=== PATIENT | female | born 1985 | race Caucasian/White ===

== ENCOUNTER 2021-10-22 22:41 | Inpatient (IN) | payer MEDICARE, MEDICAID, SELFPAY ==
--- NOTE | ~2021-10-22 | US_ITS ---
EXAMINATION: US ABDOMEN LIMITED CLINICAL INFORMATION: Elevated liver function tests; question gallstones.. COMPARISON: Abdominal ultrasound dated 10/23/2021; CT abdomen and pelvis dated 10/23/2021. Imaging is very limited due to difficulty of the patient complied with the technologist and extensive bowel gas. TECHNIQUE: Real-time imaging of the gallbladder and common bile duct. FINDINGS: GALLBLADDER: An ill-defined gallstone is suspected at the neck portion. There is no biliary sludge, polyp, wall thickening or pericholecystic fluid. COMMON BILE DUCT: Normal in caliber measuring 0.3 cm in diameter. FREE FLUID: None. US/US abdomen limited IMPRESSION: Significantly limited examination. A probable gallstone is seen towards the neck portion. The common bile duct is poorly visualized but appears to be normal in caliber.
--- NOTE | ~2021-10-22 | XR_ITS ---
EXAMINATION: XR CHEST CLINICAL INFORMATION: Fever and cough COMPARISON: None TECHNIQUE: Frontal view of the chest was obtained. FINDINGS: Lung volumes are low. There is mild asymmetric elevation of the right hemidiaphragm. No focal airspace consolidation. Atelectasis is suspected at the right lung base. Pulmonary vasculature appears normal. Cardiac and mediastinal contours are normal. No acute osseous findings. PEG tube is in place. Imaged bowel is gas-filled without definite distention on these images. Bones are gracile. No acute osseous findings. XR/XR chest 1V IMPRESSION: Low lung volumes with probable right basilar atelectasis.
--- NOTE | ~2021-10-22 | CT_ITS ---
EXAMINATION: CT CHEST WITHOUT CONTRAST CLINICAL INFORMATION: Fever. Pain. Cough. COMPARISON: CT abdomen and pelvis 10/23/2021. TECHNIQUE: Multidetector volumetric CT imaging of the chest was done. Axial MIP volume rendering provided. Sagittal and coronal reformatted images were obtained. This CT examination was performed using dose optimization techniques as appropriate, variously including the following: *Automated exposure control *Adjustment of mA and/or kV according to patient size (this includes techniques or standardized protocols for targeted exams where dose is matched to indication/reason for exam; i.e. 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 Convex leftward curvature of the thoracolumbar spine Lungs and pleura: A small dependent layering left pleural effusion is present. Mild bibasilar compressive atelectasis is noted. Right base peribronchial wall thickening and mild scattered airspace type opacities are noted. Minimal scattered airspace opacities are present in the left lung base. Mild peribronchial wall thickening in scattered airspace opacities are present dependently within the right middle pulmonary lobe. Partial atelectasis of the superior segment of the right lower pulmonary lobe is noted partial atelectasis of the right upper pulmonary lobe is present posteriorly. No pneumothoraces. Mediastinum: No lymphadenopathy. Normal heart size. Normal caliber and contour of the thoracic aorta. CHEST WALL: No axillary lymphadenopathy. Incidentally visualized abdominal structures: Partial visualization is made of a gastrostomy tube terminating within the gastric lumen. The previously noted retroperitoneal fat reticular opacities adjacent to the tail the pancreas are again visualized. Osseous structures: Prominent convex leftward scoliosis of the thoracic spine is present. CT/CT chest wo con IMPRESSION: *Peribronchial wall thickening and inflammatory changes with scattered adjacent airspace disease predominantly in the posterior dependent portions of the right lower lobe, right middle lobe and to lesser degree left lower lobe. These findings are suspicious for aspiration pneumonitis. *Partial atelectasis of the right upper pulmonary lobe and superior segment of the right lower lobe. *Small left pleural effusion. *Mild bibasilar dependent atelectasis. *Prominent convex leftward scoliosis of the thoracic spine. *Partially visualized inflammatory changes adjacent to the tail the pancreas as noted on the comparison CT of the abdomen and pelvis suspicious for possible pancreatitis. *Partially visualized percutaneous gastrostomy tube and gaseous distention of the stomach. Fleischner guidelines were followed.
--- NOTE | ~2021-10-22 | CT_ITS ---
EXAMINATION: CT ABDOMEN AND PELVIS WITHOUT CONTRAST CLINICAL INFORMATION: Abdominal pain and vomiting. COMPARISON: None TECHNIQUE: Multidetector volumetric imaging was performed from the superior aspect of the liver through the pubic symphysis. Sagittal and coronal reformatted images were obtained on the technologist's workstation. This CT examination was performed using dose optimization techniques as appropriate, variously including the following: *Automated exposure control *Adjustment of mA and/or kV according to patient size (this includes techniques or standardized protocols for targeted exams where dose is matched to indication/reason for exam; i.e. extremities or head) *Use of iterative reconstruction technique DLP: 668 mGy-cm FINDINGS: LUNG BASES: Visualized lung bases demonstrate partial visualization of a trace left pleural effusion and bibasilar atelectasis and scattered mild airspace opacities. LIVER, GALLBLADDER, AND BILIARY TREE: The liver is normal in size, shape, and attenuation. No focal hepatic lesion or biliary ductal dilatation is present. The gallbladder is unremarkable with no evidence of radiopaque gallstones, gallbladder wall thickening, or obvious pericholecystic inflammatory changes. PANCREAS: Reticulation of the retroperitoneal fat adjacent to the tail of the pancreas is present with mild reticulation of the left anterior pararenal space. No peripancreatic fluid collections identified. SPLEEN: Unremarkable. ADRENAL GLANDS: Unremarkable. KIDNEYS AND URETERS: The kidneys are normal in size, shape, and attenuation. No hydronephrosis, hydroureter, or calculi seen. No perinephric stranding. BLADDER: Unremarkable. GASTROINTESTINAL TRACT: Marked quantity of stool within the sigmoid colon. Stool at the rectosigmoid junction measures 6 cm in diameter. No adjacent pericolonic inflammatory changes. The appendix is normal in appearance (series 4 image [id number]). No small bowel dilatation or mural thickening noted. A percutaneous gastrostomy tube is present and moderate distention of the stomach is noted. ABDOMINAL WALL: No gross inflammatory changes adjacent to the percutaneous gastrostomy tube entry site. LYMPH NODES: Normal. VASCULAR: Unremarkable. PELVIC VISCERA: Unremarkable. OSSEOUS STRUCTURES: Marked heterotopic ossification is noted in association with the right hip. Rotatory levoscoliosis of the thoracolumbar spine is present. CT/CT abdomen pelvis wo con IMPRESSION: *Findings suspicious for acute pancreatitis. Inflammatory changes are present adjacent to the tail of the pancreas. No evidence of pancreatic hemorrhage. No discrete peripancreatic fluid collections. *Prominent quantity of stool within the sigmoid colon at the rectosigmoid junction which may correlate with constipation. No pericolonic inflammatory changes. *Within the incidentally visualized lung bases, partial visualization is made of bibasilar scattered airspace disease and a trace left pleural effusion. A bibasilar predominance of findings is suspicious for aspiration pneumonitis. *Percutaneous gastrostomy tube in place. Moderate distention of the stomach.
--- NOTE | ~2021-10-22 | US_ITS ---
EXAMINATION: US ABDOMEN LIMITED CLINICAL INFORMATION: Acute pancreatitis. COMPARISON: Previous CT of the abdomen and pelvis from earlier the same day TECHNIQUE: Real-time imaging of the right upper quadrant abdominal viscera. Exam is very limited due to bowel gas FINDINGS: PANCREAS: Not visualized LIVER: The left lobe of the liver is not well visualized. Right lobe of liver echotexture is normal. No focal liver lesion or biliary duct dilatation. GALLBLADDER: Not seen. COMMON BILE DUCT: Not seen. RIGHT KIDNEY: Normal. No hydronephrosis. No renal calculi or focal parenchymal lesions. The kidney measures 9.7 cm in maximum dimension. FREE FLUID: None. US/US abdomen limited IMPRESSION: Very limited exam. The pancreas, left lobe of liver, common bile duct and gallbladder are not well seen. The right kidney is normal appearing.
[2021-10-22 22:44] VITALS: BP 120/87; PULSE 123; RESP 18; TEMP 38; O2SAT 93; BMI 32.1
[2021-10-22 23:06] LABS: MANUAL DIFF FLAG NO
[2021-10-22 23:07] LABS: Basophils Percent Auto 0.2 % (0-2); Eosinophils Absolute Auto 0.1 X10*3/uL (0.0-0.4); Eosinophils Percent Auto 0.4 % (0-4); Hematocrit 42.3 % (37.0-47.0); Hemoglobin 13.3 g/dl (12.0-16.0); Imm Gran Abs Auto 0.05 X10*3/uL (0.00-0.03); Imm Gran Pct Auto 0.3 % (0.0-0.4); Lymphocytes Absolute Auto 1.2 X10*3/uL (1.2-4.9); Mean Corpuscular HGB Conc 31.4 g/dl (31.0-35.0); Mean Corpuscular Hemoglobin 27.3 pg (27.0-33.0); Mean Corpuscular Volume 86.9 fL (80.0-98.0); Mean Platelet Volume 9.8 fL (9.4-12.3); Monocytes Absolute Auto 0.8 X10*3/uL (0.1-1.2); Monocytes Percent Auto 4.6 % (2-11); Neutrophils Absolute Auto 14.5 x10*3/uL (2.0-8.3); Neutrophils Percent Auto 87.5 % (45-73); Platelet Count 435 X10*3/uL (160-400); Red Blood Count 4.87 X10*6/uL (4.20-5.50); Red Cell Distribution Width 14.1 % (11.0-16.0); White Blood Count 16.6 X10*3/uL (4.8-10.8)
[2021-10-22 23:32] LABS: Alanine Aminotransferase 277 U/L (0-31); Alkaline Phosphatase 526 U/L (39-117); Anion Gap 18 (12-20); Aspartate Amino Transferase 164 U/L (5-31); Bilirubin Direct 0.4 mg/dL (0.0-0.5); Bilirubin Total 0.8 mg/dL (0.0-1.0); Blood Urea Nitrogen 12 mg/dL (9-16); Calcium 9.7 mg/dL (8.4-10.2); Carbon Dioxide 27 mmol/L (22-29); Chloride 101 mmol/L (96-108); Creatinine Clr Calc Pharmacy 70.9; Estimated Glomerular Filt Rate > 60; Glucose Random 211 mg/dL (60-115); Lipase 58 U/L (8-78); Potassium 4.4 mmol/L (3.3-5.1); Sodium 142 mmol/L (135-145); Total Protein 7.8 g/dL (6.5-8.0)
[2021-10-23] VITALS (17 sets, daily range): BP systolic 98–201; BP diastolic 48–94; PULSE 73–132; RESP 17–32; TEMP 36.4–39.1; O2SAT 92–100
--- NOTE | 2021-10-23 | ECG_ITS ---
Test Reason : SEPSIS Blood Pressure : / mmHG Vent. Rate : 121 BPM Atrial Rate : 121 BPM P-R Int : 122 ms QRS Dur : 064 ms QT Int : 312 ms P-R-T Axes : 018 050 -06 degrees QTc Int : 443 ms Sinus tachycardia with Premature atrial complexes Anterior infarct , age undetermined Abnormal ECG No previous ECGs available Referred By: Deidre Coffey Electronically Signed By:ROSE NUNEZ MD
--- NOTE | 2021-10-23 00:24 | ED_ITS ---
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 As per mother patient been having vomiting since yesterday, subjective fever, no sick contacts. Patient get nutrition through her gastric feeding tube nothing per mouth as per mother. Related Data Allergies Allergy/AdvReac Type Severity Reaction Status Date / Time No Known Allergies Allergy Verified 10/22/21 22:44 Review of Systems Review of Systems: Yes Unobtainable due to mental condition [facility] Past Medical History Medical History (Updated 10/23/21 @ 01:50 by Aleyda Wade MD) Rett syndrome Social History Social History Advance Directives: No Advance Directives Information Provided: Yes Physical Exam Vital Signs: Vital Signs: Last Vital Signs Temp 102.4 F H 10/23/21 01:18 Pulse 127 H 10/23/21 01:18 Resp 24 H 10/23/21 01:18 BP 148/79 H 10/23/21 01:18 Pulse Ox 98 10/23/21 01:18 O2 Del Method 10/23/21 01:18 O2 Flow Rate 2 10/23/21 01:18 BMI result Body Mass Index 32.1 Vital signs have been reviewed as appeared to be correct. Blood pressure normal. Heart rate elevated. Respiration rate normal. Temperature elevated. Oxygen saturation normal. Appearance: Awake, bed ridden, Unable to communicate with examiner. Head: Normal external exam. Normocephalic. Atraumatic. Eyes: PERRLA. EOMI. Conjunctiva and sclera normal. Eyelids normal. ENT: TM's Normal. Pharynx normal. Uvula midline. Moist mucous membranes. No trismus noted. No drooling noted. No muffled voice noted. Neck: Normal inspection. Neck supple. FROM. No adenopathy. Thyroid Normal. No meningeal signs. No neck mass noted. CVS: Normal heart rate and rhythm. Heart sound normal. No murmurs noted. Pulses normal throughout. Respiratory: No respiratory distress. Painless inspiration. Breath sounds normal. No wheezes/rales/rhonchi noted. Chest nontender. No accessory muscle usage noted or decreased air movement noted. Abdomen: Soft and nontender. Bowel sounds normal in all 4 quadrants. No distention noted. No organomegaly noted. No visible injury noted. Back: No CVA tenderness. Full range of motion noted. Skin: Skin warm and dry. Normal skin color. Normal skin turgor. No rashes/lesions/lacerations noted. Extremities: 4 extremities contraction Course Course Course Narrative: 36 years old female with Rett syndrome presented with nausea and vomiting with fever patient meet criteria for SIRS but no definitive source, normal lactic acid, normal blood pressure. However patient received empirical Zosyn IV antibiotic and received 1,551.3 cc of normal saline to match 30 cc/kg. Patient is awaiting for CT of the chest and abdomen and pelvis. Case signed out to Dr. Kwan. MDM - Nausea/Vomiting/Diarrhea Lab Data Attestation: I reviewed the patient's lab results. Result diagrams: 10/22/21 23:01 10/22/21 23:01 Labs: Lab Results 10/22/21 10/22/21 10/23/21 Range/Units 23:01 23:01 00:34 WBC 16.6 H (4.8-10.8) X10*3/uL RBC 4.87 (4.20-5.50) X10*6/uL Hgb 13.3 (12.0-16.0) g/dl Hct 42.3 (37.0-47.0) % MCV 86.9 (80.0-98.0) fL MCH 27.3 (27.0-33.0) pg MCHC 31.4 (31.0-35.0) g/dl RDW 14.1 (11.0-16.0) % Plt Count 435 H (160-400) X10*3/uL MPV 9.8 (9.4-12.3) fL Immature Gran % (Auto) 0.3 (0.0-0.4) % Neut % (Auto) 87.5 H (45-73) % Lymph % (Auto) 7.0 L (20-40) % [place] % (Auto) 4.6 (2-11) % Eos % (Auto) 0.4 (0-4) % Baso % (Auto) 0.2 (0-2) % Lymph # (Auto) 1.2 (1.2-4.9) X10*3/uL [place] # (Auto) 0.8 (0.1-1.2) X10*3/uL Eos # (Auto) 0.1 (0.0-0.4) X10*3/uL Baso # (Auto) 0.0 (0.0-0.2) X10*3/uL Abs Immat Gran (auto) 0.05 H (0.00-0.03) X10*3/uL Absolute Neuts (auto) 14.5 H (2.0-8.3) x10*3/uL Absolute Nucleated RBC 0.000 (0.0-0.012) X10*3/uL Nucleated RBC % (auto) 0.0 (0.0-0.2) /100WBC Sodium 142 (135-145) mmol/L Potassium 4.4 (3.3-5.1) mmol/L Chloride 101 (96-108) mmol/L Carbon Dioxide 27 (22-29) mmol/L Anion Gap 18 (12-20) BUN 12 (9-16) mg/dL Creatinine 0.58 (0.5-1.4) mg/dL Estim Creat Clear Calc 70.9 Estimated GFR > 60 Random Glucose 211 H (60-115) mg/dL Lactic Acid 0.7 (0.5-2.0) mmol/L Calcium 9.7 (8.4-10.2) mg/dL Total Bilirubin 0.8 (0.0-1.0) mg/dL Direct Bilirubin 0.4 (0.0-0.5) mg/dL AST 164 H (5-31) U/L ALT 277 H (0-31) U/L Alkaline Phosphatase 526 H (39-117) U/L B-Natriuretic Peptide (<100) pg/mL Total Protein 7.8 (6.5-8.0) g/dL Albumin 4.0 (3.5-5.0) g/dL Lipase 58 (8-78) U/L Beta HCG, Quant < 2 mIU/mL Urine Color Urine Appearance Urine pH (5.0-8.0) Ur Specific [place] (1.005-1.025) Urine Protein (NEG-TRACE) MG/DL Urine Glucose (UA) (NEG) MG/DL Urine Ketones (NEG) MG/DL Urine Blood (NEG) Urine Nitrite (NEG) Ur Leukocyte Esterase (NEG) Urine RBC (0) /HPF Urine WBC (0-4) /HPF Ur Squamous Epith Cells /LPF Urine Bacteria /LPF Urine Mucus /LPF Influenza Type A (PCR) (Negative) Influenza Type B (PCR) (Negative) RSV RNA Qual (PCR) (Negative) SARS-CoV-2 RNA (RT-PCR) (Negative) 10/23/21 10/23/21 10/23/21 Range/Units 00:34 00:34 01:05 WBC (4.8-10.8) X10*3/uL RBC (4.20-5.50) X10*6/uL Hgb (12.0-16.0) g/dl Hct (37.0-47.0) % MCV (80.0-98.0) fL MCH (27.0-33.0) pg MCHC (31.0-35.0) g/dl RDW (11.0-16.0) % Plt Count (160-400) X10*3/uL MPV (9.4-12.3) fL Immature Gran % (Auto) (0.0-0.4) % Neut % (Auto) (45-73) % Lymph % (Auto) (20-40) % [place] % (Auto) (2-11) % Eos % (Auto) (0-4) % Baso % (Auto) (0-2) % Lymph # (Auto) (1.2-4.9) X10*3/uL [place] # (Auto) (0.1-1.2) X10*3/uL Eos # (Auto) (0.0-0.4) X10*3/uL Baso # (Auto) (0.0-0.2) X10*3/uL Abs Immat Gran (auto) (0.00-0.03) X10*3/uL Absolute Neuts (auto) (2.0-8.3) x10*3/uL Absolute Nucleated RBC (0.0-0.012) X10*3/uL Nucleated RBC % (auto) (0.0-0.2) /100WBC Sodium (135-145) mmol/L Potassium (3.3-5.1) mmol/L Chloride (96-108) mmol/L Carbon Dioxide (22-29) mmol/L Anion Gap (12-20) BUN (9-16) mg/dL Creatinine (0.5-1.4) mg/dL Estim Creat Clear Calc Estimated GFR Random Glucose (60-115) mg/dL Lactic Acid (0.5-2.0) mmol/L Calcium (8.4-10.2) mg/dL Total Bilirubin (0.0-1.0) mg/dL Direct Bilirubin (0.0-0.5) mg/dL AST (5-31) U/L ALT (0-31) U/L Alkaline Phosphatase (39-117) U/L B-Natriuretic Peptide 16 (<100) pg/mL Total Protein (6.5-8.0) g/dL Albumin (3.5-5.0) g/dL Lipase (8-78) U/L Beta HCG, Quant mIU/mL Urine Color DK YELLOW Urine Appearance HAZY Urine pH 8.0 (5.0-8.0) Ur Specific [place] 1.020 (1.005-1.025) Urine Protein 3+ H (NEG-TRACE) MG/DL Urine Glucose (UA) NEG (NEG) MG/DL Urine Ketones 15 (NEG) MG/DL Urine Blood TRACE (NEG) Urine Nitrite NEG (NEG) Ur Leukocyte Esterase NEG (NEG) Urine RBC 5-9 H (0) /HPF Urine WBC 0-2 (0-4) /HPF Ur Squamous Epith Cells 2+ /LPF Urine Bacteria 1+ /LPF Urine Mucus 4+ /LPF Influenza Type A (PCR) NEGATIVE (Negative) Influenza Type B (PCR) NEGATIVE (Negative) RSV RNA Qual (PCR) NEGATIVE (Negative) SARS-CoV-2 RNA (RT-PCR) NEGATIVE (Negative) Discharge Plan Discharge Clinical Impression: SIRS (systemic inflammatory response syndrome), Elevated LFTs, Pneumonia Patient Disposition: Admitted As Inpatient
--- NOTE | 2021-10-23 00:25 | PC.NURSE ---
Addendum entered by Brie Martinez 10/23/21 00:30: MEDICAL RECORDS REQUESTED FROM [facility] @0020. Original Note: Medical Records from [facility] @0020.
[2021-10-23] MEDS: Piperacillin Sodium/Tazobactam 3.375 GM in 0.9 % Sodium Chloride 50 ML IV ×4 (00:35→18:19)
[2021-10-23 00:52] LABS: HCG Quantitative < 2 mIU/mL
[2021-10-23 00:53] LABS: Lactic Acid 0.7 mmol/L (0.5-2.0)
[2021-10-23 01:02] LABS: B Type Natriuretic Peptide 16 pg/mL (<100)
--- NOTE | 2021-10-23 01:19 | PC.NURSE ---
Pt satting at 90% on RA. Pt placed on O2 via NC at 2 L/min to improve O2 sat to 97 %. Provider made aware.
[2021-10-23 01:22] LABS: Influenza A PCR NEGATIVE (Negative); Influenza B PCR NEGATIVE (Negative); Resp Syncy Virus RNA Qual PCR NEGATIVE (Negative); SARS COV2 PCR INHOUSE NEGATIVE (Negative)
[2021-10-23 01:23] LABS: Appearance Urine HAZY; Color Urine DK YELLOW; Glucose Urine UA NEG (NEG); Leukocyte Esterase Urine NEG (NEG); Nitrite Urine NEG (NEG); UACC Culture Trigger NO; Urine Blood TRACE (NEG); Urine Ketones 15 MG/DL (NEG); Urine Protein 3+ MG/DL (NEG-TRACE)
[2021-10-23] MEDS: 0.9 % Sodium Chloride 1,551.3 ML 1551.3 ML IV (01:25)
[2021-10-23 01:29] LABS: Squamous Epithelial Cell Urine 2+ /LPF; WBC Urine 0-2 /HPF (0-4)
[2021-10-23 01:30] LABS: Bacteria Urine 1+ /LPF; Mucus Urine 4+ /LPF
[2021-10-23] MEDS: Acetaminophen Supp 650 MG SUPP.RECT PR ×2 (02:14→06:51)
[2021-10-23] MEDS: cefTRIAXone sodium 1 GM in 0.9 % Sodium Chloride 50 ML IV (02:15)
--- NOTE | 2021-10-23 02:46 | PC.NURSE ---
While this RN was in the room administering antibiotics, pt started to vomit and cough up vomitus. Head of bed was elevated more and pt's mouth was suctioned. Pt did not cough or choke on vomitus after elevating the head of bed.
--- NOTE | 2021-10-23 06:30 | PM.IMHP ---
History of Present Illness Date of Service: 10/23/21 Chief Complaint: vomiting Interview was done with the help of interpreter and translator. this is a 48-year-old female with past medical history of breath syndrome who presents to the hospital after her mother Noticed her to have significant amount of vomiting. Mother reports the patient had nausea and vomiting throughout the day yesterday, she also developed a fever of 100.5, and she was not doing well therefore she brought her to the hospital. Patient is nonverbal at bedside, wheelchair-bound. Unable to get much history from the patient herself. Her mother is her full-time caregiver. Unable to obtain full review of system is patient is nonverbal at baseline as patient is nonverbal at bedside, mother reports that the only way she knows she is in pain is if she is groaning moaning, patient has been doing that for the past 2 days. mother reports that patient had bronchitis in May and was admitted to [facility] for over a month for management abnormal liver function. On arrival to the ED patient noted to have a temperature of a 102.4, heart rate of 127, respiratory rate of 24, satting 93% on room air Labs are significant for WBC count of 16.6, AST of 164, ALT of 277, alk-phos of 526, UA negative, chest CT shows pre bronchial wall thickening and inflammatory changes with scattered adjacent airspace disease predominantly in the posterior dependent portion of the right lower lobe, right middle lobe and to a lesser degree left lower lobe suggesting aspiration pneumonitis abdominal CT showed inflammatory changes adjacent to the tail of the pancreas suggesting of pancreatitis. Patient started on antibiotics, IV fluid will be admitted for further management Review of Systems Review of Systems: Yes all other systems are reviewed and are negative [facility] Medical History Rett syndrome Family History (Updated 10/23/21 @ 06:36 by Deidre Coffey MD) Other No family history of coronary artery disease Social History (Updated 10/23/21 @ 06:37 by Deidre Coffey MD) Alcohol intake: never Patient Tobacco Use Status: Never used Tobacco Use of substances other than those prescribed or required for medical reasons: No Advance Directives: No Advance Directives Information Provided: Yes Meds Allergies Allergy/AdvReac Type Severity Reaction Status Date / Time No Known Allergies Allergy Verified 06/23/22 22:44 Physical Exam Vital Signs and Narrative: Vital Signs: Last Vital Signs Temp 101.1 F H 10/23/21 04:31 Pulse 114 H 10/23/21 04:31 Resp 17 10/23/21 04:31 BP 136/80 10/23/21 04:31 Pulse Ox 99 10/23/21 04:31 O2 Del Method 10/23/21 04:31 O2 Flow Rate 2 10/23/21 03:44 BMI result Body Mass Index 32.1 Const: Other: patient nonverbal, she is not cooperating with exam unable to obtain full physical exam Eyes: General: appearance normal, both eyes and all related structures Chest: Other: crackles heard Resp: Effort & Inspection: normal respiratory effort Cardio: Other: tachycardic Rhythm: regular rhythm GI: Other: abdomen is distended Auscultation: normal bowel sounds Skin: General skin exam: no rashes or lesions noted Results Labs CBC and Chem 7: 10/22/21 23:01 10/22/21 23:01 Labs: Laboratory Results - last 24 hr 10/22/21 10/22/21 10/23/21 23:01 23:01 00:34 MCV 86.9 MCH 27.3 MCHC 31.4 RDW 14.1 Plt Count 435 H MPV 9.8 Immature Gran % (Auto) 0.3 Neut % (Auto) 87.5 H Lymph % (Auto) 7.0 L [place] % (Auto) 4.6 Eos % (Auto) 0.4 Baso % (Auto) 0.2 Lymph # (Auto) 1.2 [place] # (Auto) 0.8 Eos # (Auto) 0.1 Baso # (Auto) 0.0 Abs Immat Gran (auto) 0.05 H Absolute Neuts (auto) 14.5 H Absolute Nucleated RBC 0.000 Nucleated RBC % (auto) 0.0 Anion Gap 18 Estim Creat Clear Calc 70.9 Estimated GFR > 60 Random Glucose 211 H Lactic Acid 0.7 Calcium 9.7 Total Bilirubin 0.8 Direct Bilirubin 0.4 AST 164 H ALT 277 H Alkaline Phosphatase 526 H B-Natriuretic Peptide Total Protein 7.8 Albumin 4.0 Lipase 58 Beta HCG, Quant < 2 Urine Color Urine Appearance Urine pH Ur Specific [place] Urine Protein Urine Glucose (UA) Urine Ketones Urine Blood Urine Nitrite Ur Leukocyte Esterase Urine RBC Urine WBC Ur Squamous Epith Cells Urine Bacteria Urine Mucus Influenza Type A (PCR) Influenza Type B (PCR) RSV RNA Qual (PCR) SARS-CoV-2 RNA (RT-PCR) 10/23/21 10/23/21 10/23/21 00:34 00:34 01:05 MCV MCH MCHC RDW Plt Count MPV Immature Gran % (Auto) Neut % (Auto) Lymph % (Auto) [place] % (Auto) Eos % (Auto) Baso % (Auto) Lymph # (Auto) [place] # (Auto) Eos # (Auto) Baso # (Auto) Abs Immat Gran (auto) Absolute Neuts (auto) Absolute Nucleated RBC Nucleated RBC % (auto) Anion Gap Estim Creat Clear Calc Estimated GFR Random Glucose Lactic Acid Calcium Total Bilirubin Direct Bilirubin AST ALT Alkaline Phosphatase B-Natriuretic Peptide 16 Total Protein Albumin Lipase Beta HCG, Quant Urine Color DK YELLOW Urine Appearance HAZY Urine pH 8.0 Ur Specific [place] 1.020 Urine Protein 3+ H Urine Glucose (UA) NEG Urine Ketones 15 Urine Blood TRACE Urine Nitrite NEG Ur Leukocyte Esterase NEG Urine RBC 5-9 H Urine WBC 0-2 Ur Squamous Epith Cells 2+ Urine Bacteria 1+ Urine Mucus 4+ Influenza Type A (PCR) NEGATIVE Influenza Type B (PCR) NEGATIVE RSV RNA Qual (PCR) NEGATIVE SARS-CoV-2 RNA (RT-PCR) NEGATIVE Imaging Radiologist's Impressions: Impressions Chest X-Ray 10/23/21 00:54 IMPRESSION: Low lung volumes with probable right basilar atelectasis. Abdomen/Pelvis CT 10/23/21 00:55 IMPRESSION: *Findings suspicious for acute pancreatitis. Inflammatory changes are present adjacent to the tail of the pancreas. No evidence of pancreatic hemorrhage. No discrete peripancreatic fluid collections. *Prominent quantity of stool within the sigmoid colon at the rectosigmoid junction which may correlate with constipation. No pericolonic inflammatory changes. *Within the incidentally visualized lung bases, partial visualization is made of bibasilar scattered airspace disease and a trace left pleural effusion. A bibasilar predominance of findings is suspicious for aspiration pneumonitis. *Percutaneous gastrostomy tube in place. Moderate distention of the stomach. Chest CT 10/23/21 02:05 IMPRESSION: *Peribronchial wall thickening and inflammatory changes with scattered adjacent airspace disease predominantly in the posterior dependent portions of the right lower lobe, right middle lobe and to lesser degree left lower lobe. These findings are suspicious for aspiration pneumonitis. *Partial atelectasis of the right upper pulmonary lobe and superior segment of the right lower lobe. *Small left pleural effusion. *Mild bibasilar dependent atelectasis. *Prominent convex leftward scoliosis of the thoracic spine. *Partially visualized inflammatory changes adjacent to the tail the pancreas as noted on the comparison CT of the abdomen and pelvis suspicious for possible pancreatitis. *Partially visualized percutaneous gastrostomy tube and gaseous distention of the stomach. Fleischner guidelines were followed. Assessment and Plan (1) SIRS (systemic inflammatory response syndrome): Status: Acute (2) Pneumonia: Status: Acute (3) Acute pancreatitis: Status: Acute Plan 36-year-old female with past medical history of Rett syndrome presents to the hospital with vomiting found to have acute pancreatitis as well pneumonia # sepsis - likely source is pneumonia versus pancreatitis - patient with tachycardia, tachypnea, as well as fever leukocytosis - treated with IV antibiotics - IV fluids - follow cultures # pneumonia - the aspiration given the CT chest findings - treat with IV antibiotics - follow cultures - monitor respiratory status # acute pancreatitis - abdominal CT findings of acute pancreatitis - evidence of abdominal pain although patient is nonverbal and unable to communicate her pain - will treat with aggressive IV fluids, keep NPO - will obtain triglycerides, no evidence of obstructing gallbladder stones, will obtain ultrasound of the abdomen DVT prophylaxis: Lovenox patient's sepsis, need for IV antibiotics, patient will require a minimum 2 night hospital stay for further management Quality Stroke Does the patient have a stroke diagnosis?: No VTE Prior VTE?: No VTE Risk Level:: Medical - moderate - high VTE Device Contraindication: Treatment Not Indicated VTE Drug Contraindication: N/A - Med Ordered
[2021-10-23] MEDS: Enoxaparin Sodium 40 MG/0.4 ML SYRINGE SUBCUT (06:55)
[2021-10-23 07:44] LABS: HBS Num1 2.46 mIU/mL (0-7.99); HBc Num1 0.12 S/CO (0.00-0.79); HBsAGNum1 0.17 S/CO (0.00-0.99); Hepatitis A Antibody IgM 0.14 Index (0-0.79); Hepatitis B Core Antibody Nonreactive (Nonreactive); Hepatitis B Surface Antigen Negative (Negative); ~HepC Num1 0.22 S/CO (0.00-0.79); ~Hepatitis A Antibody IgM Nonreactive (Nonreactive); ~Hepatitis B Surface Antibody NONREACTIVE (Nonreactive); ~Hepatitis C Antibody Nonreactive (Nonreactive)
--- NOTE | 2021-10-23 07:50 | PC.NURSE ---
pt is alert, non-verbal. pt's mother is at bedside and is aware of plan of care. pt g-tube is patent with feeding infusing. pt changed into hosp garment and repositioned to left side. hob up, iv abt infusing slowly.
[2021-10-23 07:52] LABS: Triglycerides 63 mg/dL
[2021-10-23] MEDS: 0.9 % Sodium Chloride Flush 3 ML SYRINGE IVFLUSH ×2 (07:56→15:17)
--- NOTE | 2021-10-23 08:34 | PHA.MEDREC ---
Pharmacy Consult ? Medication Reconciliation Pharmacy has completed the medication reconciliation. List was done with prior insurance claims and the help of her mother. Patients mother reports discontinuing divalproex. All other medications are current.
[2021-10-23] MEDS: HYDROmorphone HCl 0.5 MG/0.5 ML SYRINGE IVPUSH (10:21)
[2021-10-23] MEDS: Lactated Ringers 1,000 ML 200 ML IVCONT ×2 (10:23→15:14)
--- NOTE | 2021-10-23 13:34 | P.EN_ITS ---
Event Note Date of Service: 10/23/21 Event Note: 36-year-old female with past medical history of Rett syndrome, patient nonverbal, bed ridden being taken care of at home by mom received feeding via G- tube was brought in due to symptoms of vomiting and fever On arrival to the ED patient noted to have a temperature of a? 102.4, heart rate of 127, respiratory rate of 24, satting 93% on room air Labs are significant for WBC count of 16.6, AST of 164, ALT of 277, alk-phos of 526, UA negative, chest CT shows? pre bronchial wall thickening and inflammatory changes with scattered adjacent airspace disease predominantly in the posterior dependent portion of the right lower lobe, right middle lobe and to a lesser degree left lower lobe suggesting aspiration pneumonitis abdominal CT showed inflammatory changes adjacent to the? tail of the pancreas suggesting of pancreatitis. assessment plan 36-year-old female with past medical history of Rett syndrome presents to the hospital with vomiting found to have acute pancreatitis as well pneumonia # sepsis likely due to pneumonia -? patient meet sepsis criteria due to tachycardia, tachypnea, fever and leukocytosis -? continue IV zosyn, follow blood cultures CT abdomen showed moderate distention of the stomach #? acute pancreatitis/ elevated LFTs - ? abdominal CT findings of acute pancreatitis, patient nonverbal difficult to assess pain, on examination abdomen soft patient not moaning with palpation cont. IV fluids, - ? abdominal ultrasound limited study, pancreas left lobe of liver common bile duct and caught bladder not well seen right kidney is normal triglyceride 63, lipase 58 hold Lamotrigine, follow LFTs, clinical # nausea vomiting question related to elevated LFTs pancreatitis related to infection will hold levocarnitine since it can cause nausea and vomiting treat infection, nutrition consult follow clinical course # Rett syndrome on baclofen, Lamotrigine, clonidine 2 mg at bedtime, levocarnitine and levetiracetam, on G-tube feedings obtain nutrition consult to assess formula and amount of feeding hold levocarnitine and Lamotrigine, # diabetes mellitus type 2 on Januvia follow blood sugars # hypothyroidism resume levothyroxine #?DVT prophylaxis:? Lovenox
[2021-10-23] MEDS: oxyCODONE HCl Immed Release 5 MG TABLET PO (14:08)
--- NOTE | 2021-10-23 14:23 | MHC.CLN ---
RE: CONSULT HT 4'2 WT 114# ENN: 1295KCALS, 52-62G PROTEIN (1-1.2G/KG), 1560CC FREE WATER LABS UNREMARKABLE & ALBUMIN 4.0 DIET RX: NPO PT WITH N/V X 1 DAY AND WITH ACUTE PANCREATITIS PT HAS GTUBE; WHEN TF TO RE-START RECOMMEND JEVITY 1.0 AT MAX GOAL RATE 50ML/HR WITH 240ML FREE WATER FLUSHES Q 8 HRS TO PROVIDE 1272KCALS (24KCALS/KG), 53G PROTEIN (1.0G/KG), 1722ML TOTAL WATER FROM FORMULA AND FLUSHES (33ML/KG) START FORMULA AT 20ML/HR AND INCREASE BY 10ML Q 4 HRS UNTIL MAX GOAL IS ACHIEVED MONITOR TOLERANCE, RESIDUALS AND LYTES
[2021-10-23] MEDS: levETIRAcetam Oral Soln 500 MG/5 ML 750 MG G-TUBE (15:00)
--- NOTE | 2021-10-23 17:07 | MHC.CM.PN ---
Addendum entered by Laxmi Farah 10/23/21 17:20: Vax/boosted/[employer]. 08/15/20, 09/05/20, 07/09/21. Original Note: IMM 10/23. Guardianship. Paperwork uploaded into [employer] and [facility] [employer]. Guardian/mother Kalyn Kruse and Jean Marie Santos/sister.Pt lives with mother Kalyn Kruse ([phone]). Pt has Rett Syndrome and is non-verbal, bedbound/WC. Has GT for feedings, a shower chair and nadine lift. 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 PCP Dr. Sima Arvizu in [place] ([phone]). D/C plan: return home with family. Family to transport. CM to follow for d/c needs.
[2021-10-23] MEDS: cloNIDine HCL 0.1 MG TABLET G-TUBE (18:19)
[2021-10-23] MEDS: Lactated Ringers 1,000 ML 100 ML IVCONT (22:10)
[2021-10-23 23:39] LABS: Glucose, Whole Blood 125 mg/dL (60-115)
[2021-10-24 00:19] VITALS: BP 138/89; PULSE 118; RESP 18; TEMP 37.1; O2SAT 94
[2021-10-24] MEDS: levETIRAcetam Oral Soln 500 MG/5 ML 750 MG G-TUBE ×2 (01:13→13:22)
[2021-10-24] MEDS: Piperacillin Sodium/Tazobactam 3.375 GM in 0.9 % Sodium Chloride 50 ML IV ×4 (01:17→16:57)
[2021-10-24] MEDS: HYDROmorphone HCl 0.5 MG/0.5 ML SYRINGE IVPUSH ×3 (01:59→17:44)
[2021-10-24 04:00] VITALS: BP 138/85; PULSE 117; RESP 18; TEMP 36.9; O2SAT 96
[2021-10-24 05:26] LABS: Glucose, Whole Blood 115 mg/dL (60-115)
[2021-10-24 05:40] LABS: MANUAL DIFF FLAG NO
[2021-10-24 05:47] LABS: Basophils Percent Auto 0.2 % (0-2); Eosinophils Absolute Auto 0.3 X10*3/uL (0.0-0.4); Eosinophils Percent Auto 1.7 % (0-4); Hematocrit 35.8 % (37.0-47.0); Hemoglobin 11.4 g/dl (12.0-16.0); Imm Gran Abs Auto 0.08 X10*3/uL (0.00-0.03); Imm Gran Pct Auto 0.5 % (0.0-0.4); Lymphocytes Absolute Auto 1.6 X10*3/uL (1.2-4.9); Lymphocytes Percent Auto 10.5 % (20-40); Mean Corpuscular HGB Conc 31.8 g/dl (31.0-35.0); Mean Corpuscular Hemoglobin 27.3 pg (27.0-33.0); Mean Corpuscular Volume 85.9 fL (80.0-98.0); Mean Platelet Volume 10.3 fL (9.4-12.3); Monocytes Absolute Auto 0.8 X10*3/uL (0.1-1.2); Monocytes Percent Auto 5.3 % (2-11); Neutrophils Absolute Auto 12.4 x10*3/uL (2.0-8.3); Neutrophils Percent Auto 81.8 % (45-73); Platelet Count 375 X10*3/uL (160-400); Red Blood Count 4.17 X10*6/uL (4.20-5.50); Red Cell Distribution Width 13.8 % (11.0-16.0); White Blood Count 15.1 X10*3/uL (4.8-10.8)
[2021-10-24] MEDS: Enoxaparin Sodium 40 MG/0.4 ML SYRINGE SUBCUT (06:03)
[2021-10-24 06:06] LABS: Alanine Aminotransferase 247 U/L (0-31); Albumin Level 3.2 g/dL (3.5-5.0); Alkaline Phosphatase 459 U/L (39-117); Anion Gap 15 (12-20); Aspartate Amino Transferase 123 U/L (5-31); Bilirubin Direct 0.3 mg/dL (0.0-0.5); Bilirubin Total 0.5 mg/dL (0.0-1.0); Blood Urea Nitrogen 6 mg/dL (9-16); Calcium 9.1 mg/dL (8.4-10.2); Carbon Dioxide 23 mmol/L (22-29); Chloride 104 mmol/L (96-108); Creatinine Clr Calc Pharmacy 95.7; Estimated Glomerular Filt Rate > 60; Glucose Random 122 mg/dL (60-115); Potassium 3.9 mmol/L (3.3-5.1); Sodium 138 mmol/L (135-145); Total Protein 6.2 g/dL (6.5-8.0)
[2021-10-24 06:28] LABS: Thyroid Stimulating Hormone 1.76 uIU/mL (0.32-4.0)
[2021-10-24 08:00] VITALS: BP 136/79; PULSE 117; RESP 16; TEMP 37.2; O2SAT 93
[2021-10-24 08:01] LABS: Glucose, Whole Blood 103 mg/dL (60-115)
[2021-10-24] MEDS: 0.9 % Sodium Chloride Flush 3 ML SYRINGE IVFLUSH ×2 (08:29→16:56)
[2021-10-24] MEDS: Lactated Ringers 1,000 ML 100 ML IVCONT ×2 (08:29→16:56)
[2021-10-24] MEDS: Levothyroxine Sodium 25 MCG TABLET G-TUBE (10:03)
[2021-10-24 12:00] VITALS: BP 137/100; PULSE 123; RESP 16; TEMP 37.1; O2SAT 94
[2021-10-24 12:17] LABS: Glucose, Whole Blood 97 mg/dL (60-115)
[2021-10-24] MEDS: ondansetron HCL 4 MG/2 ML VIAL IVPUSH (13:22)
--- NOTE | 2021-10-24 15:36 | HO.PM.IMPN ---
Subjective Subjective Date of Service: 10/25/21 Interval History: f/u elevated lfts, pancreatitis difficut to get history from patient Review of Systems Review of Systems: Yes Unobtainable due to mental status Physical Exam Vital Signs: Vital Signs: Last Vital Signs Temp 98.8 F 10/24/21 12:00 Pulse 123 H 10/24/21 12:00 Resp 16 10/24/21 12:00 BP 137/100 H 10/24/21 12:00 Pulse Ox 94 10/24/21 12:00 O2 Del Method 10/24/21 12:00 O2 Flow Rate 2 10/23/21 16:00 BMI result Body Mass Index 32.1 Const: Other: General: constantly moving, non-verbal Resp: CTA bilateral CVS: S1,S2,RRR,t achy GI: +BS, NT, no distention Skin: No rash Neuro: not able to assess Psych: at her baseline per mother Objective Data Active Medications Acetaminophen (Acetaminophen 325 Mg Tablet) 650 mg PO Q6H PRN PRN Reason: Pain, Mild (Pain Scale 1-3) Acetaminophen (Acetaminophen Supp 650 Mg Supp.Rect) 650 mg NH Q6H PRN PRN Reason: Pain, Mild (Pain Scale 1-3) Last Admin: 10/23/21 06:51 Dose: 650 mg Documented By: JANE Albuterol/Ipratropium (Albuterol/Iprat 2.5/0.5mg 3 Ml Ampul.Neb) 3 ml INHALE RQ4H PRN PRN Reason: Shortness of Breath/Wheezing Dextrose (Dextrose 50 % 25 Gm/50 Ml Syringe) 25 gm IVPUSH Q15M PRN; Protocol PRN Reason: per Hypoglycemia Standing Ord. Enoxaparin Sodium (Enoxaparin Sodium 40 Mg/0.4 Ml Syringe) 40 mg SUBCUT Q24H JAMES Last Admin: 10/24/21 06:03 Dose: 40 mg Documented By: BONIFACIO Glucose (Glucose Gel 15 Gm Gel..Gram.) 15 gm PO Q15M PRN; Protocol PRN Reason: per Hypoglycemia Standing Ord. Hydromorphone HCl (Hydromorphone Hcl 0.5 Mg/0.5 Ml Syringe) 0.5 mg IVPUSH Q4H PRN; Protocol PRN Reason: Pain, Severe (Pain Scale 7-10) Last Admin: 10/24/21 13:28 Dose: 0.5 mg Documented By: LUPIS Lactated Ringer's (Lr) 1,000 mls @ 100 mls/hr IVCONT .Q10H [facility] Last Admin: 10/24/21 08:29 Dose: 100 mls/hr Documented By: LUPIS Piperacillin Sod/Tazobactam (Sod 3.375 gm/ Sodium Chloride) 50 mls @ 100 mls/hr IV Q6H [facility] Last Infusion: 10/24/21 13:53 Dose: 0 mls/hr Documented By: LUPIS Insulin Human Lispro (Insulin Lispro 100 Unit/Ml 3 Ml Vial) 0 unit SUBCUT Q6H [facility]; Protocol Last Admin: 10/24/21 09:29 Dose: Not Given Documented By: LUPIS Non-Admin Reason: No Insulin Coverage Levetiracetam (Levetiracetam Oral Soln 500 Mg/5 Ml) 750 mg G-TUBE Q12H [facility] Last Admin: 10/24/21 13:22 Dose: 750 mg Documented By: LUPIS Levothyroxine Sodium (Levothyroxine Sodium 25 Mcg Tablet) 25 mcg G-TUBE DAILY [facility] Last Admin: 10/24/21 10:03 Dose: 25 mcg Documented By: LUPIS Ondansetron HCl (Ondansetron Hcl 4 Mg/2 Ml Vial) 4 mg IVPUSH Q8H PRN PRN Reason: Nausea and Vomiting Last Admin: 10/24/21 13:22 Dose: 4 mg Documented By: LUPIS Oxycodone HCl (Oxycodone Hcl Immed Release 5 Mg Tablet) 5 mg PO Q6H PRN PRN Reason: Pain, Severe (Pain Scale 7-10) Last Admin: 10/23/21 14:08 Dose: 5 mg Documented By: MARY BETH Sodium Chloride (0.9 % Sodium Chloride Flush 3 Ml Syringe) 3 ml IVFLUSH QSHIFT [facility] Last Admin: 10/24/21 08:29 Dose: 3 ml Documented By: LUPIS Labs CBC & Chem 7: 10/25/21 09:50 10/25/21 09:50 Labs: Laboratory Results - last 24 hr 10/23/21 10/24/21 10/24/21 23:30 04:53 04:53 MCV 85.9 MCH 27.3 MCHC 31.8 RDW 13.8 Plt Count 375 MPV 10.3 Immature Gran % (Auto) 0.5 H Neut % (Auto) 81.8 H Lymph % (Auto) 10.5 L [place] % (Auto) 5.3 Eos % (Auto) 1.7 Baso % (Auto) 0.2 Lymph # (Auto) 1.6 [place] # (Auto) 0.8 Eos # (Auto) 0.3 Baso # (Auto) 0.0 Abs Immat Gran (auto) 0.08 H Absolute Neuts (auto) 12.4 H Absolute Nucleated RBC 0.000 Nucleated RBC % (auto) 0.0 Anion Gap 15 Estim Creat Clear Calc 95.7 Estimated GFR > 60 POC Glucose 125 H Random Glucose 122 H Calcium 9.1 D Total Bilirubin 0.5 Direct Bilirubin 0.3 AST 123 H ALT 247 H Alkaline Phosphatase 459 H Total Protein 6.2 L D Albumin 3.2 L TSH 1.76 10/24/21 10/24/21 10/24/21 05:20 07:48 11:56 MCV MCH MCHC RDW Plt Count MPV Immature Gran % (Auto) Neut % (Auto) Lymph % (Auto) [place] % (Auto) Eos % (Auto) Baso % (Auto) Lymph # (Auto) [place] # (Auto) Eos # (Auto) Baso # (Auto) Abs Immat Gran (auto) Absolute Neuts (auto) Absolute Nucleated RBC Nucleated RBC % (auto) Anion Gap Estim Creat Clear Calc Estimated GFR POC Glucose 115 103 97 Random Glucose Calcium Total Bilirubin Direct Bilirubin AST ALT Alkaline Phosphatase Total Protein Albumin TSH Microbiology Microbiology Results: Microbiology 10/23/21 00:34 Blood Culture - Preliminary Blood - Venous No growth after 24 hours. 10/23/21 00:34 Blood Culture - Preliminary Blood - Venous No growth after 24 hours. 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 102.4, heart rate of 127, respiratory rate of 24, satting 93% on room air Labs are significant for WBC count of 16.6, AST of 164, ALT of 277, alk-phos of 526, UA negative, chest CT shows? pre bronchial wall thickening and inflammatory changes with scattered adjacent airspace disease predominantly in the posterior dependent portion of the right lower lobe, right middle lobe and to a lesser degree left lower lobe suggesting aspiration pneumonitis abdominal CT showed inflammatory changes adjacent to the? tail of the pancreas suggesting of pancreatitis. 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 sepsis likely? due to pneumonia, met sepsis criteria due to tachycardia, tachypnea, fever and leukocytosis remains same -? continue IV zosyn, cultures negative at 48 ?? CT abdomen showed moderate distention of the stomach #? acute pancreatitis/ elevated LFTs - ?CT findings of acute pancreatitis, patient nonverbal difficult to assess pain, on examination abdomen soft patient not moaning with palpation ? ? cont. IV fluids, - ? abdominal ultrasound limited study because she's not able to stay still, pancreas left lobe of liver common bile duct and caught bladder not well seen right kidney is normal ? ? triglyceride 63, lipase 58 ? ? hold Lamotrigine, follow LFTs are trending down GI consult #? nausea vomiting question related to elevated LFTs pancreatitis related to infection will hold levocarnitine since it can cause nausea and vomiting treat infection as above, nutrition consult follow clinical course # Rett? syndrome ?? on baclofen, Lamotrigine, clonidine 2 mg at bedtime, levocarnitine and levetiracetam, on G-tube feedings obtain nutrition consult to assess? formula and amount of feeding ? ? hold levocarnitine and Lamotrigine, restart tube feed tomorrow if better #? diabetes mellitus type 2 on Januvia follow blood sugars #? hypothyroidism resume levothyroxine #?DVT prophylaxis:? Lovenox Quality Stroke Does the patient have a stroke diagnosis?: No VTE Prior VTE?: No VTE Risk Level:: Medical - moderate - high VTE Device Contraindication: Treatment Not Indicated VTE Drug Contraindication: N/A - Med Ordered
[2021-10-24 16:23] VITALS: BP 125/95; PULSE 114; RESP 20; TEMP 37; O2SAT 100
[2021-10-24 16:39] LABS: Glucose, Whole Blood 85 mg/dL (60-115)
[2021-10-24 20:01] VITALS: BP 134/64; PULSE 115; RESP 20; TEMP 36.1; O2SAT 95
[2021-10-24 20:38] LABS: Glucose, Whole Blood 73 mg/dL (60-115)
[2021-10-24] MEDS: Dextrose 5 % and Lactated Ring 1,000 ML 50 ML IVCONT (20:58)
[2021-10-25] MEDS: Piperacillin Sodium/Tazobactam 3.375 GM in 0.9 % Sodium Chloride 50 ML IV ×4 (00:19→18:00)
[2021-10-25] MEDS: HYDROmorphone HCl 0.5 MG/0.5 ML SYRINGE IVPUSH ×3 (00:22→23:08)
[2021-10-25 01:24] VITALS: PULSE 133; RESP 22; TEMP 37.4; O2SAT 97
[2021-10-25] MEDS: levETIRAcetam Oral Soln 500 MG/5 ML 750 MG G-TUBE ×2 (03:01→14:04)
[2021-10-25 04:00] VITALS: BP 144/84; PULSE 117; RESP 18; TEMP 36.6; O2SAT 94
[2021-10-25] MEDS: Enoxaparin Sodium 40 MG/0.4 ML SYRINGE SUBCUT (06:02)
[2021-10-25 06:24] LABS: Glucose, Whole Blood 135 mg/dL (60-115)
[2021-10-25 07:20] VITALS: BP 154/92; PULSE 120; RESP 16; TEMP 37.2; O2SAT 92
[2021-10-25 07:49] LABS: Glucose, Whole Blood 117 mg/dL (60-115)
[2021-10-25] MEDS: Acetaminophen 325 MG TABLET 650 MG PO (09:08)
[2021-10-25] MEDS: 0.9 % Sodium Chloride Flush 3 ML SYRINGE IVFLUSH ×2 (09:08→18:00)
[2021-10-25] MEDS: Levothyroxine Sodium 25 MCG TABLET G-TUBE (09:09)
[2021-10-25 10:08] LABS: Hematocrit 35.1 % (37.0-47.0); Hemoglobin 11.5 g/dl (12.0-16.0); Mean Corpuscular HGB Conc 32.8 g/dl (31.0-35.0); Mean Corpuscular Hemoglobin 27.8 pg (27.0-33.0); Mean Corpuscular Volume 84.8 fL (80.0-98.0); Mean Platelet Volume 9.6 fL (9.4-12.3); Platelet Count 442 X10*3/uL (160-400); Red Blood Count 4.14 X10*6/uL (4.20-5.50); Red Cell Distribution Width 13.6 % (11.0-16.0); White Blood Count 15.3 X10*3/uL (4.8-10.8)
[2021-10-25 10:25] LABS: Alanine Aminotransferase 169 U/L (0-31); Albumin Level 3.3 g/dL (3.5-5.0); Alkaline Phosphatase 438 U/L (39-117); Anion Gap 15 (12-20); Aspartate Amino Transferase 47 U/L (5-31); Bilirubin Direct 0.2 mg/dL (0.0-0.5); Bilirubin Total 0.5 mg/dL (0.0-1.0); Blood Urea Nitrogen 6 mg/dL (9-16); Carbon Dioxide 21 mmol/L (22-29); Chloride 106 mmol/L (96-108); Creatinine Clr Calc Pharmacy 91.5; Estimated Glomerular Filt Rate > 60; Glucose Random 123 mg/dL (60-115); Potassium 3.3 mmol/L (3.3-5.1); Sodium 139 mmol/L (135-145); Total Protein 6.5 g/dL (6.5-8.0)
--- NOTE | 2021-10-25 10:52 | HO.PM.IMPN ---
Subjective Subjective Date of Service: 10/25/21 Interval History: f/u elevated lfts, pancreatitis vomitted this morning according to mother Review of Systems Review of Systems: Yes Unobtainable due to mental status Physical Exam Vital Signs: Vital Signs: Last Vital Signs Temp 98.9 F 10/25/21 07:20 Pulse 120 H 10/25/21 07:20 Resp 16 10/25/21 07:20 BP 154/92 H 10/25/21 07:20 Pulse Ox 92 10/25/21 07:20 O2 Del Method 10/25/21 07:20 O2 Flow Rate 2 10/23/21 16:00 BMI result Body Mass Index 32.1 Const: Other: General: constantly moving, non-verbal Resp: CTA bilateral CVS: S1,S2,RRR,t achy GI: +BS, NT, no distention Skin: No rash Neuro: not able to assess Psych: at her baseline per mother Objective Data Active Medications Acetaminophen (Acetaminophen 325 Mg Tablet) 650 mg PO Q6H PRN PRN Reason: Pain, Mild (Pain Scale 1-3) Last Admin: 10/25/21 09:08 Dose: 650 mg Documented By: LUPIS Acetaminophen (Acetaminophen Supp 650 Mg Supp.Rect) 650 mg MN Q6H PRN PRN Reason: Pain, Mild (Pain Scale 1-3) Last Admin: 10/23/21 06:51 Dose: 650 mg Documented By: JANE Albuterol/Ipratropium (Albuterol/Iprat 2.5/0.5mg 3 Ml Ampul.Neb) 3 ml INHALE RQ4H PRN PRN Reason: Shortness of Breath/Wheezing Dextrose (Dextrose 50 % 25 Gm/50 Ml Syringe) 25 gm IVPUSH Q15M PRN; Protocol PRN Reason: per Hypoglycemia Standing Ord. Enoxaparin Sodium (Enoxaparin Sodium 40 Mg/0.4 Ml Syringe) 40 mg SUBCUT Q24H COUNT INCLUDES THE [facility] Last Admin: 10/25/21 06:02 Dose: 40 mg Documented By: BONIFACIO Glucose (Glucose Gel 15 Gm Gel..Gram.) 15 gm PO Q15M PRN; Protocol PRN Reason: per Hypoglycemia Standing Ord. Hydromorphone HCl (Hydromorphone Hcl 0.5 Mg/0.5 Ml Syringe) 0.5 mg IVPUSH Q4H PRN; Protocol PRN Reason: Pain, Severe (Pain Scale 7-10) Last Admin: 10/25/21 09:09 Dose: 0.5 mg Documented By: LUPIS Piperacillin Sod/Tazobactam (Sod 3.375 gm/ Sodium Chloride) 50 mls @ 100 mls/hr IV Q6H COUNT INCLUDES THE [facility] Last Infusion: 10/25/21 06:40 Dose: 0 mls/hr Documented By: BONIFACIO Dextrose/Lactated Ringer's (D5lr) 1,000 mls @ 50 mls/hr IVCONT .Q20H COUNT INCLUDES THE [facility] Last Admin: 10/24/21 20:58 Dose: 50 mls/hr Documented By: BONIFACIO Insulin Human Lispro (Insulin Lispro 100 Unit/Ml 3 Ml Vial) 0 unit SUBCUT Q6H COUNT INCLUDES THE [facility]; Protocol Last Admin: 10/25/21 05:33 Dose: Not Given Documented By: BONIFACIO Non-Admin Reason: No Insulin Coverage Levetiracetam (Levetiracetam Oral Soln 500 Mg/5 Ml) 750 mg G-TUBE Q12H COUNT INCLUDES THE [facility] Last Admin: 10/25/21 03:01 Dose: 750 mg Documented By: BONIFACIO Levothyroxine Sodium (Levothyroxine Sodium 25 Mcg Tablet) 25 mcg G-TUBE DAILY COUNT INCLUDES THE [facility] Last Admin: 10/25/21 09:09 Dose: 25 mcg Documented By: LUPIS Ondansetron HCl (Ondansetron Hcl 4 Mg/2 Ml Vial) 4 mg IVPUSH Q8H PRN PRN Reason: Nausea and Vomiting Last Admin: 10/24/21 13:22 Dose: 4 mg Documented By: LUPIS Oxycodone HCl (Oxycodone Hcl Immed Release 5 Mg Tablet) 5 mg PO Q6H PRN PRN Reason: Pain, Severe (Pain Scale 7-10) Last Admin: 10/23/21 14:08 Dose: 5 mg Documented By: MARY BETH Sodium Chloride (0.9 % Sodium Chloride Flush 3 Ml Syringe) 3 ml IVFLUSH QSHIFT COUNT INCLUDES THE [facility] Last Admin: 10/25/21 09:08 Dose: 3 ml Documented By: LPUIS Labs CBC & Chem 7: 10/25/21 09:50 10/25/21 09:50 Labs: Laboratory Results - last 24 hr 10/24/21 10/24/21 10/24/21 11:56 16:31 20:07 MCV MCH MCHC RDW Plt Count MPV Absolute Nucleated RBC Nucleated RBC % (auto) Anion Gap Estim Creat Clear Calc Estimated GFR POC Glucose 97 85 73 Random Glucose Calcium Total Bilirubin Direct Bilirubin AST ALT Alkaline Phosphatase Total Protein Albumin 10/25/21 10/25/21 10/25/21 06:19 07:31 09:50 MCV 84.8 MCH 27.8 MCHC 32.8 RDW 13.6 Plt Count 442 H MPV 9.6 Absolute Nucleated RBC 0.000 Nucleated RBC % (auto) 0.0 Anion Gap Estim Creat Clear Calc Estimated GFR POC Glucose 135 H 117 H Random Glucose Calcium Total Bilirubin Direct Bilirubin AST ALT Alkaline Phosphatase Total Protein Albumin 10/25/21 09:50 MCV MCH MCHC RDW Plt Count MPV Absolute Nucleated RBC Nucleated RBC % (auto) Anion Gap 15 Estim Creat Clear Calc 91.5 Estimated GFR > 60 POC Glucose Random Glucose 123 H Calcium 9.0 Total Bilirubin 0.5 Direct Bilirubin 0.2 AST 47 H D ALT 169 H Alkaline Phosphatase 438 H Total Protein 6.5 Albumin 3.3 L Microbiology Microbiology Results: Microbiology 10/23/21 00:34 Blood Culture - Preliminary Blood - Venous No growth after 48 hours. 10/23/21 00:34 Blood Culture - Preliminary Blood - Venous No growth after 48 hours. 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 102.4, heart rate of 127, respiratory rate of 24, satting 93% on room air Labs are significant for WBC count of 16.6, AST of 164, ALT of 277, alk-phos of 526, UA negative, chest CT shows? pre bronchial wall thickening and inflammatory changes with scattered adjacent airspace disease predominantly in the posterior dependent portion of the right lower lobe, right middle lobe and to a lesser degree left lower lobe suggesting aspiration pneumonitis abdominal CT showed inflammatory changes adjacent to the? tail of the pancreas suggesting of pancreatitis. 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 sepsis likely? due to pneumonia, met sepsis criteria due to tachycardia, tachypnea, fever and leukocytosis remains same -? continue IV zosyn, cultures negative at 48 ?? CT abdomen showed moderate distention of the stomach #? acute pancreatitis/ elevated LFTs - ?CT findings of acute pancreatitis, patient nonverbal difficult to assess pain, on examination abdomen soft patient not moaning with palpation ? ? cont. IV fluids, - ? abdominal ultrasound limited study because she's not able to stay still, pancreas left lobe of liver common bile duct and caught bladder not well seen right kidney is normal ? ? triglyceride 63, lipase 58 ? ? hold Lamotrigine, follow LFTs are trending down GI consult #? nausea vomiting question related to elevated LFTs pancreatitis related to infection will hold levocarnitine since it can cause nausea and vomiting treat infection as above, nutrition consult follow clinical course #Persistent tachycardia--probably has underlying tachycardia d/t chronic fidgeting and now sepsis # Rett? syndrome ?? on baclofen, Lamotrigine, clonidine 2 mg at bedtime, levocarnitine and levetiracetam, on G-tube feedings obtain nutrition consult to assess? formula and amount of feeding ? ? hold levocarnitine and Lamotrigine, restart tube feed tomorrow if better #? diabetes mellitus type 2 on Januvia follow blood sugars #? hypothyroidism resume levothyroxine #?DVT prophylaxis:? Lovenox Quality Stroke Does the patient have a stroke diagnosis?: No VTE Prior VTE?: No VTE Risk Level:: Medical - moderate - high VTE Device Contraindication: Treatment Not Indicated VTE Drug Contraindication: N/A - Med Ordered
--- NOTE | 2021-10-25 11:13 | P.CNGI_ITS ---
History of Present Illness Data of Consult Service Date: 10/25/21 Requesting physician: [facility] Primary Care Provider: Unknown Physician HPI Reason for consult: pancreatitis, elevated LFTs 36-year-old female with past medical history of Rett's syndrome who presents to the hospital after her mother? Noticed her to have significant amount of vomiting.? Mother reports the patient had nausea and vomiting throughout the day yesterday, she also developed a fever of 100.5, and she was not doing well therefore she brought her to the hospital.? Patient is nonverbal at bedside, wheelchair-bound.? Unable to get much history from the patient herself.? Her mother is her full-time caregiver. ? Unable to obtain full review of system is patient is nonverbal at baseline ?as patient is nonverbal at bedside, mother reports that? the only way she knows she is in pain is if she is groaning moaning, patient has been doing that for the past 2 days.? ?mother reports that patient had bronchitis in May and was admitted to [facility] for over a month for management abnormal liver function. On arrival to the ED patient noted to have a temperature of a? 102.4, heart rate of 127, respiratory rate of 24, satting 93% on room air Labs are significant for WBC count of 16.6, AST of 164, ALT of 277, alk-phos of 526, UA negative, ?chest CT shows? pre bronchial wall thickening and inflammatory changes with scattered adjacent airspace disease predominantly in the posterior dependent portion of the right lower lobe, right middle lobe and to a lesser degree left lower lobe suggesting aspiration pneumonitis Patient started on antibiotics, IV fluid will be admitted for further management Hx obtained from patient;s Dad who was at her bedside. He reports pt was admitted to [facility] about a month ago with nausea and vomiting. Pt was transferred to [facility] at her Dad's request since he was not happy with her care. Pt had a PEG tube placed at [facility] and he was told that she had gallstones. (Records from [facility] have been requested) 10/23/[address] SCAN SHOWED: *Findings suspicious for acute pancreatitis. Inflammatory changes are present adjacent to the tail of the pancreas. No evidence of pancreatic hemorrhage. No discrete peripancreatic fluid collections. *Prominent quantity of stool within the sigmoid colon at the rectosigmoid junction which may correlate with constipation. No pericolonic inflammatory changes. *Within the incidentally visualized lung bases, partial visualization is made of bibasilar scattered airspace disease and a trace left pleural effusion. A bibasilar predominance of findings is suspicious for aspiration pneumonitis. *Percutaneous gastrostomy tube in place. Moderate distention of the stomach. ? 10/23/21 abd us showed: Very limited exam. The pancreas, left lobe of liver, common bile duct and gallbladder are not well seen. The right kidney is normal appearing. ? Review of Systems Review of Systems: Not obtainable since patient is nonverbal [facility] Past Medical History Medical History (Updated 10/30/21 @ 14:52 by Aleyda Wade MD) Encounter for gastrojejunal tube placement Family History Family History (Updated 10/23/21 @ 06:36 by Deidre Coffey MD) Other No family history of coronary artery disease Surgical History Surgical History (Updated 10/30/21 @ 08:19 by Escobar Wellington MD) S/P laparoscopic cholecystectomy (10/29/21) Social History Social History (Updated 10/23/21 @ 06:37 by Deidre Coffey MD) Household Members: Family Housing: Apartment Alcohol intake: never Patient Tobacco Use Status: Never used Tobacco service: No Current occupational status: disabled Meds Allergies Allergy/AdvReac Type Severity Reaction Status Date / Time No Known Allergies Allergy Verified 10/29/21 13:38 Active Medications: Current Medications Acetaminophen (Acetaminophen 325 Mg Tablet) 650 mg PO Q6H PRN PRN Reason: Pain, Mild (Pain Scale 1-3) Last Admin: 10/25/21 09:08 Dose: 650 mg Acetaminophen (Acetaminophen Supp 650 Mg Supp.Rect) 650 mg [place] Q6H PRN PRN Reason: Pain, Mild (Pain Scale 1-3) Last Admin: 10/23/21 06:51 Dose: 650 mg Albuterol/Ipratropium (Albuterol/Iprat 2.5/0.5mg 3 Ml Ampul.Neb) 3 ml INHALE RQ4H PRN PRN Reason: Shortness of Breath/Wheezing Dextrose (Dextrose 50 % 25 Gm/50 Ml Syringe) 25 gm IVPUSH Q15M PRN; Protocol PRN Reason: per Hypoglycemia Standing Ord. Enoxaparin Sodium (Enoxaparin Sodium 40 Mg/0.4 Ml Syringe) 40 mg SUBCUT Q24H [facility] Last Admin: 10/25/21 06:02 Dose: 40 mg Glucose (Glucose Gel 15 Gm Gel..Gram.) 15 gm PO Q15M PRN; Protocol PRN Reason: per Hypoglycemia Standing Ord. Hydromorphone HCl (Hydromorphone Hcl 0.5 Mg/0.5 Ml Syringe) 0.5 mg IVPUSH Q4H PRN; Protocol PRN Reason: Pain, Severe (Pain Scale 7-10) Last Admin: 10/25/21 09:09 Dose: 0.5 mg Piperacillin Sod/Tazobactam (Sod 3.375 gm/ Sodium Chloride) 50 mls @ 100 mls/hr IV Q6H [facility] Last Infusion: 10/25/21 06:40 Dose: Infused Dextrose/Lactated Ringer's (D5lr) 1,000 mls @ 50 mls/hr IVCONT .Q20H [facility] Last Admin: 10/24/21 20:58 Dose: 50 mls/hr Insulin Human Lispro (Insulin Lispro 100 Unit/Ml 3 Ml Vial) 0 unit SUBCUT Q6H JAMES; Protocol Last Admin: 10/25/21 05:33 Dose: Not Given Levetiracetam (Levetiracetam Oral Soln 500 Mg/5 Ml) 750 mg G-TUBE Q12H [facility] Last Admin: 10/25/21 03:01 Dose: 750 mg Levothyroxine Sodium (Levothyroxine Sodium 25 Mcg Tablet) 25 mcg G-TUBE DAILY [facility] Last Admin: 10/25/21 09:09 Dose: 25 mcg Ondansetron HCl (Ondansetron Hcl 4 Mg/2 Ml Vial) 4 mg IVPUSH Q8H PRN PRN Reason: Nausea and Vomiting Last Admin: 10/24/21 13:22 Dose: 4 mg Oxycodone HCl (Oxycodone Hcl Immed Release 5 Mg Tablet) 5 mg PO Q6H PRN PRN Reason: Pain, Severe (Pain Scale 7-10) Last Admin: 10/23/21 14:08 Dose: 5 mg Sodium Chloride (0.9 % Sodium Chloride Flush 3 Ml Syringe) 3 ml IVFLUSH QSHIFT [facility] Last Admin: 10/25/21 09:08 Dose: 3 ml Home Medications Medication Instructions Recorded Confirmed Last Taken Type baclofen 10 mg tablet 20 mg PO TID 10/23/21 10/23/21 Unknown History clonidine HCl 0.1 mg tablet 2 tab PO BEDTIME 10/23/21 10/23/21 Unknown History docusate sodium 50 mg/5 mL oral 5 ml PO BID 10/23/21 10/23/21 Unknown History liquid (Docu) lamotrigine 25 mg tablet 4 tab PO BID 10/23/21 10/23/21 Unknown History levetiracetam 100 mg/mL oral 7.5 ml G-tube Q12H 10/23/21 10/23/21 Unknown History solution levocarnitine (with sugar) 100 2.5 ml PO BID 10/23/21 10/23/21 Unknown History mg/mL oral solution levothyroxine 25 mcg tablet 1 tab G-tube DAILY 10/23/21 10/23/21 Unknown History miconazole nitrate 2 % topical 1 appl topical NEEDED itch 10/23/21 10/23/21 Unknown History powder (Anti-Fungal) nystatin 100,000 unit/gram topical 1 appl topical BID 10/23/21 10/23/21 Unknown History powder sitagliptin 100 mg tablet (Januvia) 1 tab PO DAILY 10/23/21 10/23/21 Unknown History trazodone 50 mg tablet 0.5 tab PO BEDTIME insomnia 10/23/21 10/23/21 Unknown History Physical Exam Vital Signs: Vital Signs: Last Vital Signs Temp 98.9 F 10/25/21 07:20 Pulse 120 H 10/25/21 07:20 Resp 16 10/25/21 07:20 BP 154/92 H 10/25/21 07:20 Pulse Ox 92 10/25/21 07:20 O2 Del Method 10/25/21 07:20 O2 Flow Rate 2 10/23/21 16:00 BMI result Body Mass Index 32.1 Const: General: no acute distress Nutritional Appearance: obese Orientation/consciousness: Other orientation findings (non verbal due to Rett's syndrome) Limitations: physical limitations (bed bound) and other limitations (non verbal) HEENT: Head: Yes normal to inspection Ears: other (pt is non verbal) Eyes: Sclerae: sclerae normal Pupils: Equal, round and reactive pupils present Neck: Neck: Yes normal visual inspection Chest: Chest palpation & inspection: normal inspection of the chest Resp: Effort & Inspection: normal respiratory effort Auscultation: clear to auscultation bilaterally Cardio: Palpation: normal PMI Rate: regular rate Rhythm: regular rhythm Heart sounds: S1 normal heart sound present, S2 normal heart sound present and no murmurs GI: Inspection: Yes G-tube present Palpation (GI): Soft to palpation, nontender (unable to elicit abdominal tenderness) and No hepatosplenomegaly present Auscultation: normal bowel sounds Rectal Exam - Female: deferred Skin: General skin exam: no rashes or lesions noted Neuro: General: gait normal and moves all extremities Cranial nerves: Yes Equal, round and reactive pupils present Psych: Mental Status: 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) Speech and movement: Other speech and movement exam findings present (Psych) (non verbal) Results Labs CBC & Chem 7: 10/31/21 05:52 10/31/21 05:52 Labs: Short CBC 10/25/21 Range/Units 09:50 WBC 15.3 H (4.8-10.8) X10*3/uL Hgb 11.5 L (12.0-16.0) g/dl Hct 35.1 L (37.0-47.0) % Plt Count 442 H (160-400) X10*3/uL BMP 10/25/21 09:50 Sodium 139 Potassium 3.3 Chloride 106 Carbon Dioxide 21 L BUN 6 L Creatinine 0.45 L Calcium 9.0 Liver Function 10/25/21 Range/Units 09:50 Total Bilirubin 0.5 (0.0-1.0) mg/dL Direct Bilirubin 0.2 (0.0-0.5) mg/dL AST 47 H D (5-31) U/L ALT 169 H (0-31) U/L Alkaline Phosphatase 438 H (39-117) U/L Albumin 3.3 L (3.5-5.0) g/dL Microbiology Microbiology Results: Microbiology 10/23/21 00:34 Blood - Venous Blood Culture - Preliminary No growth after 48 hours. 10/23/21 00:34 Blood - Venous Blood Culture - Preliminary No growth after 48 hours. Assessment and Plan (1) Acute pancreatitis: Status: Acute (2) Elevated LFTs: Status: Acute Plan 36 YF with Rett's syndrome admitted with fever, nausea and vomiting and diagnosed with aspiration pneumonitis Labs are significant for WBC count of 16.6, AST of 164, ALT of 277, alk-phos of 526. Hepatitis a B and C serologies were negative. Likely cause of pancreatitis with elevated LFTs is gallstone pancreatitis. Her LFTs are improving. Pt's Dad reports pt was admitted to [facility] about a month ago with nausea and vom iting. Pt was transferred to [facility] at her Dad's request since he was not happy with her care. Pt had a PEG tube placed at [facility] and he was told that she had gallstones. Records from [facility] were obtained and reviewed - Abdominal US showed gallstones. 10/23/[address] SCAN SHOWED: *Findings suspicious for acute pancreatitis. Inflammatory changes are present adjacent to the tail of the pancreas. No evidence of pancreatic hemorrhage. No discrete peripancreatic fluid collections. *Prominent quantity of stool within the sigmoid colon at the rectosigmoid junction which may correlate with constipation. No pericolonic inflammatory changes. *Within the incidentally visualized lung bases, partial visualization is made of bibasilar scattered airspace disease and a trace left pleural effusion. A bibasilar predominance of findings is suspicious for aspiration pneumonitis. *Percutaneous gastrostomy tube in place. Moderate distention of the stomach. ? 10/23/21 abd us showed: Very limited exam. The pancreas, left lobe of liver, common bile duct and gallbladder are not well seen. The right kidney is normal appearing. RECOMMENDATIONS: 1. Follow LFTs. 2. Repeat abd US (pt is not likely to stay still for an MRCP). If US confirms presence of gallstones, surgical evaluation for Lap Caro if family agrees. Procedures Date of Service Date of Service: 10/25/21
[2021-10-25 12:00] VITALS: BP 137/89; PULSE 117; RESP 16; TEMP 36.9; O2SAT 96
[2021-10-25 12:00] LABS: Glucose, Whole Blood 122 mg/dL (60-115)
[2021-10-25] MEDS: Dextrose 5 % and Lactated Ring 1,000 ML 50 ML IVCONT (15:39)
[2021-10-25 16:00] VITALS: BP 161/102; PULSE 116; RESP 16; TEMP 36.4; O2SAT 95
[2021-10-25 17:45] LABS: Glucose, Whole Blood 146 mg/dL (60-115)
[2021-10-25 19:18] VITALS: BP 169/12; PULSE 116; RESP 16; TEMP 35.8; O2SAT 93
[2021-10-25 20:44] LABS: Glucose, Whole Blood 150 mg/dL (60-115)
[2021-10-25] MEDS: ondansetron HCL 4 MG/2 ML VIAL IVPUSH (21:19)
[2021-10-26] VITALS (7 sets, daily range): BP systolic 106–145; BP diastolic 45–84; PULSE 95–120; RESP 16–26; TEMP 36.3–36.9; O2SAT 95–100; BMI 32.1
[2021-10-26] MEDS: Piperacillin Sodium/Tazobactam 3.375 GM in 0.9 % Sodium Chloride 50 ML IV ×5 (01:48→23:27)
[2021-10-26] MEDS: levETIRAcetam Oral Soln 500 MG/5 ML 750 MG G-TUBE ×2 (01:49→15:31)
[2021-10-26] MEDS: HYDROmorphone HCl 0.5 MG/0.5 ML SYRINGE IVPUSH (03:27)
[2021-10-26] MEDS: Enoxaparin Sodium 40 MG/0.4 ML SYRINGE SUBCUT (06:07)
--- NOTE | 2021-10-26 06:20 | PM.EVENT ---
Event Note Date of Service: 10/26/21 Event Note: Seizure: Around 06:20 patient had an episode of seizure. Per family at bedside when patient had a seizure she was advised back. Did not have any convulsions. Patient was given Ativan IV x1. Patient continued on her home Keppra and lamotrigine.
[2021-10-26 06:25] LABS: Glucose, Whole Blood 184 mg/dL (60-115)
[2021-10-26] MEDS: LORazepam 2 MG/ML VIAL 1 MG IVPUSH (06:25)
[2021-10-26 08:37] LABS: HBS Num1 1.59 mIU/mL (0-7.99); HBc Num1 0.06 S/CO (0.00-0.79); HBsAGNum1 0.22 S/CO (0.00-0.99); Hepatitis B Core Antibody Nonreactive (Nonreactive); Hepatitis B Surface Antigen Negative (Negative); ~HepC Num1 0.16 S/CO (0.00-0.79); ~Hepatitis B Surface Antibody NONREACTIVE (Nonreactive); ~Hepatitis C Antibody Nonreactive (Nonreactive)
[2021-10-26 09:07] LABS: Hematocrit 37.2 % (37.0-47.0); Hemoglobin 12.4 g/dl (12.0-16.0); Mean Corpuscular HGB Conc 33.3 g/dl (31.0-35.0); Mean Corpuscular Hemoglobin 28.4 pg (27.0-33.0); Mean Corpuscular Volume 85.1 fL (80.0-98.0); Mean Platelet Volume 10.3 fL (9.4-12.3); PLT CLUMP 1; Red Blood Count 4.37 X10*6/uL (4.20-5.50); Red Cell Distribution Width 13.4 % (11.0-16.0)
[2021-10-26 09:19] LABS: Platelet Count 324 X10*3/uL (160-400); White Blood Count 10.7 X10*3/uL (4.8-10.8)
[2021-10-26 09:29] LABS: Anion Gap 15 (12-20); Blood Urea Nitrogen 5 mg/dL (9-16); Calcium 8.8 mg/dL (8.4-10.2); Carbon Dioxide 20 mmol/L (22-29); Chloride 109 mmol/L (96-108); Creatinine Clr Calc Pharmacy 85.7; Estimated Glomerular Filt Rate > 60; Glucose Random 192 mg/dL (60-115); Sodium 141 mmol/L (135-145)
[2021-10-26] MEDS: Levothyroxine Sodium 25 MCG TABLET G-TUBE (10:02)
--- NOTE | 2021-10-26 11:19 | HO.PM.IMPN ---
Subjective Subjective Date of Service: 10/26/21 Interval History: f/u elevated lfts, pancreatitis interval history:had a seizure and vomitted this morning, but more restful this morning, Review of Systems Review of Systems: Yes Unobtainable due to mental status Physical Exam Vital Signs: Vital Signs: Last Vital Signs Temp 97.6 F 10/26/21 07:53 Pulse 107 H 10/26/21 07:53 Resp 18 10/26/21 07:53 BP 120/73 10/26/21 07:53 Pulse Ox 95 10/26/21 07:53 O2 Del Method 10/26/21 07:53 O2 Flow Rate 2 10/23/21 16:00 BMI result Body Mass Index 32.1 Const: Other: General: constantly moving, non-verbal Resp: CTA bilateral CVS: S1,S2,RRR,t achy GI: +BS, NT, no distention Skin: No rash Neuro: not able to assess Psych: at her baseline per mother Objective Data Active Medications Acetaminophen (Acetaminophen 325 Mg Tablet) 650 mg PO Q6H PRN PRN Reason: Pain, Mild (Pain Scale 1-3) Last Admin: 10/25/21 09:08 Dose: 650 mg Documented By: LUPIS Acetaminophen (Acetaminophen Supp 650 Mg Supp.Rect) 650 mg [place] Q6H PRN PRN Reason: Pain, Mild (Pain Scale 1-3) Last Admin: 10/23/21 06:51 Dose: 650 mg Documented By: JANE Albuterol/Ipratropium (Albuterol/Iprat 2.5/0.5mg 3 Ml Ampul.Neb) 3 ml INHALE RQ4H PRN PRN Reason: Shortness of Breath/Wheezing Dextrose (Dextrose 50 % 25 Gm/50 Ml Syringe) 25 gm IVPUSH Q15M PRN; Protocol PRN Reason: per Hypoglycemia Standing Ord. Enoxaparin Sodium (Enoxaparin Sodium 40 Mg/0.4 Ml Syringe) 40 mg SUBCUT Q24H JAMES Last Admin: 10/26/21 06:07 Dose: 40 mg Documented By: JANETH Glucose (Glucose Gel 15 Gm Gel..Gram.) 15 gm PO Q15M PRN; Protocol PRN Reason: per Hypoglycemia Standing Ord. Hydromorphone HCl (Hydromorphone Hcl 0.5 Mg/0.5 Ml Syringe) 0.5 mg IVPUSH Q4H PRN; Protocol PRN Reason: Pain, Severe (Pain Scale 7-10) Last Admin: 10/26/21 03:27 Dose: 0.5 mg Documented By: JANETH Piperacillin Sod/Tazobactam (Sod 3.375 gm/ Sodium Chloride) 50 mls @ 100 mls/hr IV Q6H JAMES Last Infusion: 10/26/21 06:44 Dose: 100 mls/hr Documented By: JANETH Dextrose/Lactated Ringer's (D5lr) 1,000 mls @ 50 mls/hr IVCONT .Q20H JAMES Last Admin: 10/25/21 15:39 Dose: 50 mls/hr Documented By: ARSENENOEFREN Insulin Human Lispro (Insulin Lispro 100 Unit/Ml 3 Ml Vial) 0 unit SUBCUT Q6H JAMES; Protocol Last Admin: 10/26/21 06:27 Dose: Not Given Documented By: JANETH Non-Admin Reason: NPO Levetiracetam (Levetiracetam Oral Soln 500 Mg/5 Ml) 750 mg G-TUBE Q12H JAMES Last Admin: 10/26/21 01:49 Dose: 750 mg Documented By: JANETH Levothyroxine Sodium (Levothyroxine Sodium 25 Mcg Tablet) 25 mcg G-TUBE DAILY [facility] Last Admin: 10/26/21 10:02 Dose: 25 mcg Documented By: MARITZA Lorazepam (Lorazepam 2 Mg/Ml Vial) 1 mg IVPUSH Q2H PRN PRN Reason: Seizures Last Admin: 10/26/21 06:25 Dose: 1 mg Documented By: JANETH Ondansetron HCl (Ondansetron Hcl 4 Mg/2 Ml Vial) 4 mg IVPUSH Q8H PRN PRN Reason: Nausea and Vomiting Last Admin: 10/25/21 21:19 Dose: 4 mg Documented By: RAFI Oxycodone HCl (Oxycodone Hcl Immed Release 5 Mg Tablet) 5 mg PO Q6H PRN PRN Reason: Pain, Severe (Pain Scale 7-10) Last Admin: 10/23/21 14:08 Dose: 5 mg Documented By: MARY BETH Sodium Chloride (0.9 % Sodium Chloride Flush 3 Ml Syringe) 3 ml IVFLUSH QSHIFT [facility] Last Admin: 10/26/21 10:07 Dose: Not Given Documented By: MARITZA Non-Admin Reason: IV Running Labs CBC & Chem 7: 10/26/21 08:40 10/26/21 08:40 Labs: Laboratory Results - last 24 hr 10/23/21 10/25/21 10/25/21 18:37 11:29 17:42 MCV MCH MCHC RDW Plt Count MPV Absolute Nucleated RBC Nucleated RBC % (auto) Anion Gap Estim Creat Clear Calc Estimated GFR POC Glucose 122 H 146 H Random Glucose Calcium Hep Bs Antigen Negative Hep Bs Antibody NONREACTIVE Hep B Core Total Ab Nonreactive Hepatitis C Ab (EIA) Nonreactive 10/25/21 10/26/21 10/26/21 20:40 06:19 08:40 MCV 85.1 MCH 28.4 MCHC 33.3 RDW 13.4 Plt Count 324 D MPV 10.3 Absolute Nucleated RBC 0.000 Nucleated RBC % (auto) 0.0 Anion Gap Estim Creat Clear Calc Estimated GFR POC Glucose 150 H 184 H Random Glucose Calcium Hep Bs Antigen Hep Bs Antibody Hep B Core Total Ab Hepatitis C Ab (EIA) 10/26/21 08:40 MCV MCH MCHC RDW Plt Count MPV Absolute Nucleated RBC Nucleated RBC % (auto) Anion Gap 15 Estim Creat Clear Calc 85.7 Estimated GFR > 60 POC Glucose Random Glucose 192 H Calcium 8.8 Hep Bs Antigen Hep Bs Antibody Hep B Core Total Ab Hepatitis C Ab (EIA) Assessment and Plan (1) Acute pancreatitis: Status: Acute (2) Elevated LFTs: Status: Acute Plan 36-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 sepsis likely? due to pneumonia, met sepsis criteria due to tachycardia, tachypnea, fever and leukocytosis remains same--clincally improving. WBC is now normlal -? continue IV zosyn, cultures negative at 48 ?? CT abdomen showed moderate distention of the stomach #? acute pancreatitis/ elevated LFTs - ?CT findings of acute pancreatitis, patient nonverbal difficult to assess pain, on examination abdomen soft patient not moaning with palpation ? ? cont. IV fluids, - ? abdominal ultrasound limited study because she's not able to stay still, pancreas left lobe of liver common bile duct and caught bladder not well seen right kidney is normal ? ? triglyceride 63, lipase 58 ? ? hold Lamotrigine, follow LFTs are trending down GI recommend MRCP but she cannot stay still, so will repeat US, Get surgery consult for likely gallstone pancreatitis #? nausea vomiting question related to elevated LFTs pancreatitis related to infection will hold levocarnitine since it can cause nausea and vomiting treat infection as above, nutrition consult follow clinical course #Persistent tachycardia--probably has underlying tachycardia d/t chronic fidgeting and now sepsis # Rett? syndrome ?? on baclofen, Lamotrigine, clonidine 2 mg at bedtime, levocarnitine and levetiracetam, on G-tube feedings obtain nutrition consult to assess? formula and amount of feeding ? ? hold levocarnitine and Lamotrigine, restart tube feed tomorrow if better # Seizure d/o--had seizure last night, restart all home seizure meds #? diabetes mellitus type 2 on Januvia follow blood sugars #? hypothyroidism resume levothyroxine #?DVT prophylaxis:? Lovenox Quality Stroke Does the patient have a stroke diagnosis?: No VTE Prior VTE?: No VTE Risk Level:: Medical - moderate - high VTE Device Contraindication: Treatment Not Indicated VTE Drug Contraindication: N/A - Med Ordered
[2021-10-26 11:39] LABS: Glucose, Whole Blood 180 mg/dL (60-115)
[2021-10-26] MEDS: Insulin Lispro 100 UNIT/ML 3 ML VIAL SUBCUT ×3 (12:09→23:28)
[2021-10-26] MEDS: KCl 20 mEq in 5 % Dextrose 20 MEQ/1,000 ML IV.SOLN 125 MEQ IVCONT ×2 (13:05→23:27)
[2021-10-26 16:36] LABS: Glucose, Whole Blood 189 mg/dL (60-115)
[2021-10-26 18:09] LABS: Alanine Aminotransferase 105 U/L (0-31); Albumin Level 3.1 g/dL (3.5-5.0); Alkaline Phosphatase 384 U/L (39-117); Aspartate Amino Transferase 30 U/L (5-31); Bilirubin Direct 0.2 mg/dL (0.0-0.5); Bilirubin Total 0.3 mg/dL (0.0-1.0); Total Protein 6.5 g/dL (6.5-8.0)
--- NOTE | 2021-10-26 18:18 | P.CONGS_ITS ---
History of Present Illness Consult details Consult date: 10/26/21 Requesting physician: Brian Albert Narrative: 36-year-old female patient admitted to the hospitalist service on 10/23/2021 found to have vomiting fever. Patient has are Rett syndrome and is non ambulatory and nonverbal. She recently underwent a gastrostomy tube placement at [facility]. The patient's mother is her full-time caregiver provides information regarding her history. In the emergency department she was found to be tachycardic with a fever. Laboratories revealed elevated WBC of 16.6 and elevated alkaline phosphatase level. CT of the chest revealed possible aspiration pneumonitis. CT of the abdomen revealed inflammatory changes at tail the pancreas. She has a known history of gallstones gallbladder. Surgical consultation was requested regarding possible cholecystectomy. Review of Systems Review of Systems: Yes Unobtainable due to mental condition Neurologic: Reports confusion Psychiatric: Psychiatric: Reports confusion [facility] Past Medical History Medical History Rett syndrome Family History Family History (Updated 10/23/21 @ 06:36 by Deidre Coffey MD) Other No family history of coronary artery disease Social History Social History (Updated 10/23/21 @ 06:37 by Deidre Coffey MD) Household Members: Family Housing: Apartment Alcohol intake: never Patient Tobacco Use Status: Never used Tobacco service: No Current occupational status: disabled Meds Allergies Allergy/AdvReac Type Severity Reaction Status Date / Time No Known Allergies Allergy Verified 10/22/21 22:44 Active Medications: Current Medications Acetaminophen (Acetaminophen 325 Mg Tablet) 650 mg PO Q6H PRN PRN Reason: Pain, Mild (Pain Scale 1-3) Last Admin: 10/25/21 09:08 Dose: 650 mg Acetaminophen (Acetaminophen Supp 650 Mg Supp.Rect) 650 mg [place] Q6H PRN PRN Reason: Pain, Mild (Pain Scale 1-3) Last Admin: 10/23/21 06:51 Dose: 650 mg Albuterol/Ipratropium (Albuterol/Iprat 2.5/0.5mg 3 Ml Ampul.Neb) 3 ml INHALE RQ4H PRN PRN Reason: Shortness of Breath/Wheezing Dextrose (Dextrose 50 % 25 Gm/50 Ml Syringe) 25 gm IVPUSH Q15M PRN; Protocol PRN Reason: per Hypoglycemia Standing Ord. Enoxaparin Sodium (Enoxaparin Sodium 40 Mg/0.4 Ml Syringe) 40 mg SUBCUT Q24H JAMES Last Admin: 10/26/21 06:07 Dose: 40 mg Glucose (Glucose Gel 15 Gm Gel..Gram.) 15 gm PO Q15M PRN; Protocol PRN Reason: per Hypoglycemia Standing Ord. Hydromorphone HCl (Hydromorphone Hcl 0.5 Mg/0.5 Ml Syringe) 0.5 mg IVPUSH Q4H PRN; Protocol PRN Reason: Pain, Severe (Pain Scale 7-10) Last Admin: 10/26/21 03:27 Dose: 0.5 mg Piperacillin Sod/Tazobactam (Sod 3.375 gm/ Sodium Chloride) 50 mls @ 100 mls/hr IV Q6H JAMES Last Infusion: 10/26/21 12:48 Dose: Infused Potassium Chloride/Dextrose () 20 meq in 1,000 mls @ 125 mls/hr IVCONT .Q8H JAMES Last Admin: 10/26/21 13:05 Dose: 125 mls/hr Insulin Human Lispro (Insulin Lispro 100 Unit/Ml 3 Ml Vial) 0 unit SUBCUT Q6H JAMES; Protocol Last Admin: 10/26/21 16:49 Dose: 2 unit Levetiracetam (Levetiracetam Oral Soln 500 Mg/5 Ml) 750 mg G-TUBE Q12H JAMES Last Admin: 10/26/21 15:31 Dose: 750 mg Levothyroxine Sodium (Levothyroxine Sodium 25 Mcg Tablet) 25 mcg G-TUBE DAILY JAMES Last Admin: 10/26/21 10:02 Dose: 25 mcg Lorazepam (Lorazepam 2 Mg/Ml Vial) 1 mg IVPUSH Q2H PRN PRN Reason: Seizures Last Admin: 10/26/21 06:25 Dose: 1 mg Ondansetron HCl (Ondansetron Hcl 4 Mg/2 Ml Vial) 4 mg IVPUSH Q8H PRN PRN Reason: Nausea and Vomiting Last Admin: 10/25/21 21:19 Dose: 4 mg Oxycodone HCl (Oxycodone Hcl Immed Release 5 Mg Tablet) 5 mg PO Q6H PRN PRN Reason: Pain, Severe (Pain Scale 7-10) Last Admin: 10/23/21 14:08 Dose: 5 mg Sodium Chloride (0.9 % Sodium Chloride Flush 3 Ml Syringe) [facility] Last Admin: 10/26/21 16:50 Dose: Not Given Home Medications Medication Instructions Recorded Confirmed Last Taken Type baclofen 10 mg tablet 20 mg PO TID 10/23/21 10/23/21 Unknown History clonidine HCl 0.1 mg tablet 2 tab PO BEDTIME 10/23/21 10/23/21 Unknown History docusate sodium 50 mg/5 mL oral 5 ml PO BID 10/23/21 10/23/21 Unknown History liquid (Docu) lamotrigine 25 mg tablet 4 tab PO BID 10/23/21 10/23/21 Unknown History levetiracetam 100 mg/mL oral 7.5 ml G-tube Q12H 10/23/21 10/23/21 Unknown History solution levocarnitine (with sugar) 100 2.5 ml PO BID 10/23/21 10/23/21 Unknown History mg/mL oral solution levothyroxine 25 mcg tablet 1 tab G-tube DAILY 10/23/21 10/23/21 Unknown History miconazole nitrate 2 % topical 1 appl topical NEEDED itch 10/23/21 10/23/21 Unknown History powder (Anti-Fungal) nystatin 100,000 unit/gram topical 1 appl topical BID 10/23/21 10/23/21 Unknown History powder sitagliptin 100 mg tablet (Januvia) 1 tab PO DAILY 10/23/21 10/23/21 Unknown History trazodone 50 mg tablet 0.5 tab PO BEDTIME insomnia 10/23/21 10/23/21 Unknown History Physical Exam Vital Signs: Vital Signs: Last Vital Signs Temp 98.5 F 10/26/21 15:45 Pulse 111 H 10/26/21 15:45 Resp 20 10/26/21 15:45 BP 145/84 H 10/26/21 15:45 Pulse Ox 99 10/26/21 15:45 O2 Del Method 10/26/21 15:45 O2 Flow Rate 2 10/23/21 16:00 BMI result Body Mass Index 32.1 Const: General: awake, anxious and confusion Orientation/consciousness: confusion Limitations: behavioral limitations, physical limitations and wheelchair Resp: Effort & Inspection: normal respiratory effort, no audible wheezes, no cough and no respiratory distress GI: Other: Difficult to assess due to underlying medical condition. Patient grimaces with palpation of the Abdomen. No rebound or guarding. G-tube in place Skin: Other: warm and dry, no rash Neuro: General: confusion Psych: Other: patient is nonverbal, incomprehensible sounds Results Labs Result diagrams: 10/26/21 08:40 10/26/21 08:40 Labs: Abnormal lab results 10/25/21 10/26/21 10/26/21 Range/Units 20:40 06:19 08:40 Potassium 3.0 L (3.3-5.1) mmol/L Chloride 109 H (96-108) mmol/L Carbon Dioxide 20 L (22-29) mmol/L BUN 5 L (9-16) mg/dL Creatinine 0.48 L (0.5-1.4) mg/dL POC Glucose 150 H 184 H (60-115) mg/dL Random Glucose 192 H (60-115) mg/dL ALT 105 H (0-31) U/L Alkaline Phosphatase 384 H (39-117) U/L Albumin 3.1 L (3.5-5.0) g/dL 10/26/21 10/26/21 Range/Units 11:34 15:48 Potassium (3.3-5.1) mmol/L Chloride (96-108) mmol/L Carbon Dioxide (22-29) mmol/L BUN (9-16) mg/dL Creatinine (0.5-1.4) mg/dL POC Glucose 180 H 189 H (60-115) mg/dL Random Glucose (60-115) mg/dL ALT (0-31) U/L Alkaline Phosphatase (39-117) U/L Albumin (3.5-5.0) g/dL Short CBC 10/26/21 Range/Units 08:40 WBC 10.7 (4.8-10.8) X10*3/uL Hgb 12.4 (12.0-16.0) g/dl Hct 37.2 (37.0-47.0) % Plt Count 324 D (160-400) X10*3/uL BMP 10/26/21 08:40 Sodium 141 Potassium 3.0 L Chloride 109 H Carbon Dioxide 20 L BUN 5 L Creatinine 0.48 L Calcium 8.8 Liver Function 10/26/21 Range/Units 08:40 Total Bilirubin 0.3 (0.0-1.0) mg/dL Direct Bilirubin 0.2 (0.0-0.5) mg/dL AST 30 (5-31) U/L ALT 105 H (0-31) U/L Alkaline Phosphatase 384 H (39-117) U/L Albumin 3.1 L (3.5-5.0) g/dL Urine 10/23/21 Range/Units 01:05 Urine Color DK YELLOW Urine Appearance HAZY Urine pH 8.0 (5.0-8.0) Ur Specific [place] 1.020 (1.005-1.025) Urine Protein 3+ H (NEG-TRACE) MG/DL Urine Glucose (UA) NEG (NEG) MG/DL All other labs normal. Assessment and Plan (1) Acute pancreatitis: Status: Acute Plan 36-year-old female patient multiple medical problems presenting with complaints of vomiting and fever. Patient found to have pancreatitis of unknown etiology. She apparently has a history of gallstones previously diagnosed however current imaging does not confirm this. Patient continues to have elevated liver function tests especially alkaline phosphatase suggestive of cholecystitis. On CT the gallbladder is small and appears contracted. Ultrasound does visualize the gallbladder. Agree with Dr. Carranza patient will not be a good candidate for MRCP. A repeat ultrasound would be helpful to confirm gallstones. Discussed the possibility of surgery with her mother this afternoon. She is agreeable to proceed with surgery , namely laparoscopic or possible cholecystectomy, if necessary. Procedures Date of Service Date of Service: 10/26/21
[2021-10-26 20:08] LABS: Glucose, Whole Blood 169 mg/dL (60-115)
[2021-10-26] MEDS: 0.9 % Sodium Chloride Flush 3 ML SYRINGE IVFLUSH (23:28)
[2021-10-27] VITALS: BP 139/87; PULSE 118; RESP 16; TEMP 36.6; O2SAT 93
--- NOTE | 2021-10-27 | ECG_ITS ---
Test Reason : ST INVERSIONS Blood Pressure : / mmHG Vent. Rate : 119 BPM Atrial Rate : 119 BPM P-R Int : 124 ms QRS Dur : 064 ms QT Int : 350 ms P-R-T Axes : 020 081 022 degrees QTc Int : [address] & T wave abnormality, consider anterior ischemia Abnormal ECG When compared with ECG of 23-OCT-2021 06:11, No significant changes seen Referred By: Marj Savage Electronically Signed By:ANJANA PETERSEN
[2021-10-27] MEDS: levETIRAcetam Oral Soln 500 MG/5 ML 750 MG G-TUBE ×2 (01:47→15:17)
[2021-10-27 04:00] VITALS: BP 133/70; PULSE 108; RESP 16; TEMP 36.8; O2SAT 94
[2021-10-27] MEDS: KCl 20 mEq in 5 % Dextrose 20 MEQ/1,000 ML IV.SOLN 125 MEQ IVCONT ×2 (05:49→16:29)
[2021-10-27] MEDS: Enoxaparin Sodium 40 MG/0.4 ML SYRINGE SUBCUT (05:49)
[2021-10-27] MEDS: Piperacillin Sodium/Tazobactam 3.375 GM in 0.9 % Sodium Chloride 50 ML IV ×3 (05:50→18:25)
[2021-10-27 07:54] VITALS: BP 110/88; PULSE 114; RESP 20; TEMP 36.7; O2SAT 94
[2021-10-27] MEDS: Levothyroxine Sodium 25 MCG TABLET G-TUBE (10:28)
[2021-10-27 11:27] LABS: Glucose, Whole Blood 215 mg/dL (60-115)
[2021-10-27 11:30] LABS: Anion Gap 19 (12-20); Blood Urea Nitrogen 4 mg/dL (9-16); Calcium 9.1 mg/dL (8.4-10.2); Carbon Dioxide 17 mmol/L (22-29); Chloride 104 mmol/L (96-108); Creatinine Clr Calc Pharmacy 79.1; Estimated Glomerular Filt Rate > 60; Glucose Random 231 mg/dL (60-115); Potassium 3.8 mmol/L (3.3-5.1); Sodium 136 mmol/L (135-145)
[2021-10-27] MEDS: Insulin Lispro 100 UNIT/ML 3 ML VIAL SUBCUT ×3 (11:57→21:13)
[2021-10-27 12:00] VITALS: BP 160/75; PULSE 106; RESP 20; TEMP 36.6; O2SAT 95
[2021-10-27] MEDS: Acetaminophen 325 MG TABLET 650 MG PO (12:41)
[2021-10-27] MEDS: oxyCODONE HCl Immed Release 5 MG TABLET PO (12:42)
--- NOTE | 2021-10-27 14:20 | HO.PM.IMPN ---
Subjective Subjective Date of Service: 10/28/21 Interval History: elevated lft's , pancreatitis, abnormal ekg Review of Systems nonverbal , family at bedside Physical Exam Vital Signs: Vital Signs: Last Vital Signs Temp 97.9 F 10/27/21 12:00 Pulse 106 H 10/27/21 12:00 Resp 20 10/27/21 12:00 BP 160/75 H 10/27/21 12:00 Pulse Ox 95 10/27/21 12:00 O2 Del Method 10/27/21 12:00 O2 Flow Rate 2 10/23/21 16:00 BMI result Body Mass Index 32.1 General: constantly moving, non-verbal( as per mother at her baseline) Resp:? CTA bilateral CVS: S1,S2,RRR,tachy GI: +BS, NT, no distention Skin: No rash Neuro:? not able to assess Psych: at her baseline per mother ? Objective Data Active Medications Acetaminophen (Acetaminophen 325 Mg Tablet) 650 mg PO Q6H PRN PRN Reason: Pain, Mild (Pain Scale 1-3) Last Admin: 10/27/21 12:41 Dose: 650 mg Documented By: EDIN Acetaminophen (Acetaminophen Supp 650 Mg Supp.Rect) 650 mg [place] Q6H PRN PRN Reason: Pain, Mild (Pain Scale 1-3) Last Admin: 10/23/21 06:51 Dose: 650 mg Documented By: JANE Albuterol/Ipratropium (Albuterol/Iprat 2.5/0.5mg 3 Ml Ampul.Neb) 3 ml INHALE RQ4H PRN PRN Reason: Shortness of Breath/Wheezing Dextrose (Dextrose 50 % 25 Gm/50 Ml Syringe) 25 gm IVPUSH Q15M PRN; Protocol PRN Reason: per Hypoglycemia Standing Ord. Enoxaparin Sodium (Enoxaparin Sodium 40 Mg/0.4 Ml Syringe) 40 mg SUBCUT Q24H JAMES Last Admin: 10/27/21 05:49 Dose: 40 mg Documented By: AMISH Glucose (Glucose Gel 15 Gm Gel..Gram.) 15 gm PO Q15M PRN; Protocol PRN Reason: per Hypoglycemia Standing Ord. Hydromorphone HCl (Hydromorphone Hcl 0.5 Mg/0.5 Ml Syringe) 0.5 mg IVPUSH Q4H PRN; Protocol PRN Reason: Pain, Severe (Pain Scale 7-10) Last Admin: 10/26/21 03:27 Dose: 0.5 mg Documented By: JANETH Piperacillin Sod/Tazobactam (Sod 3.375 gm/ Sodium Chloride) 50 mls @ 100 mls/hr IV Q6H [facility] Last Infusion: 10/27/21 12:32 Dose: 0 mls/hr Documented By: EDIN Potassium Chloride/Dextrose () 20 meq in 1,000 mls @ 125 mls/hr IVCONT .Q8H [facility] Last Admin: 10/27/21 05:49 Dose: 125 mls/hr Documented By: AMISH Insulin Human Lispro (Insulin Lispro 100 Unit/Ml 3 Ml Vial) 0 unit SUBCUT Q6H [facility]; Protocol Last Admin: 10/27/21 11:57 Dose: 4 unit Documented By: EDIN Lamotrigine (Lamotrigine 100 Mg Tablet) 100 mg PO BID [facility] Levetiracetam (Levetiracetam Oral Soln 500 Mg/5 Ml) 750 mg G-TUBE Q12H [facility] Last Admin: 10/27/21 01:47 Dose: 750 mg Documented By: AMISH Levothyroxine Sodium (Levothyroxine Sodium 25 Mcg Tablet) 25 mcg G-TUBE DAILY [facility] Last Admin: 10/27/21 10:28 Dose: 25 mcg Documented By: EDIN Lorazepam (Lorazepam 2 Mg/Ml Vial) 1 mg IVPUSH Q2H PRN PRN Reason: Seizures Last Admin: 10/26/21 06:25 Dose: 1 mg Documented By: JANETH Ondansetron HCl (Ondansetron Hcl 4 Mg/2 Ml Vial) 4 mg IVPUSH Q8H PRN PRN Reason: Nausea and Vomiting Last Admin: 10/25/21 21:19 Dose: 4 mg Documented By: RAFI Oxycodone HCl (Oxycodone Hcl Immed Release 5 Mg Tablet) 5 mg PO Q6H PRN PRN Reason: Pain, Severe (Pain Scale 7-10) Last Admin: 10/27/21 12:42 Dose: 5 mg Documented By: EDIN Sodium Chloride (0.9 % Sodium Chloride Flush 3 Ml Syringe) 3 ml IVFLUSH QSHIFT [facility] Last Admin: 10/27/21 10:28 Dose: Not Given Documented By: EDIN Non-Admin Reason: IV Running Labs CBC & Chem 7: 10/26/21 08:40 10/28/21 10:14 Labs: Laboratory Results - last 24 hr 10/26/21 10/26/21 10/26/21 08:40 15:48 20:03 Anion Gap Estim Creat Clear Calc Estimated GFR POC Glucose 189 H 169 H Random Glucose Calcium Total Bilirubin 0.3 Direct Bilirubin 0.2 AST 30 ALT 105 H Alkaline Phosphatase 384 H Total Protein 6.5 Albumin 3.1 L 10/27/21 10/27/21 09:50 11:21 Anion Gap 19 Estim Creat Clear Calc 79.1 Estimated GFR > 60 POC Glucose 215 H Random Glucose 231 H Calcium 9.1 Total Bilirubin Direct Bilirubin AST ALT Alkaline Phosphatase Total Protein Albumin Assessment and Plan (1) Rett syndrome: Status: Acute (2) Abnormal EKG: Status: Acute (3) Acute pancreatitis: Status: Acute Plan 36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 due to pneumonia, met sepsis criteria due to tachycardia, tachypnea, fever and leukocytosis remains same--clincally improving. WBC is now normlal -? continue IV zosyn, cultures negative at 48 ?? CT abdomen showed moderate distention of the stomach ? acute pancreatitis/ elevated LFTs - ?CT findings of acute pancreatitis, patient nonverbal difficult to assess pain, on examination abdomen soft patient not moaning with palpation ? ? cont. IV fluids, - ? abdominal ultrasound limited study because she's not able to stay still, pancreas left lobe of liver common bile duct and caught bladder not well seen right kidney is normal ? ? triglyceride 63, lipase 58 ? ? hold Lamotrigine, follow LFTs are trending down GI recommend MRCP but she cannot stay still, so will repeat US, Get surgery consult for likely gallstone pancreatitis ? nausea vomiting question related to elevated LFTs pancreatitis related to infection will hold levocarnitine since it can cause nausea and vomiting treat infection as above, nutrition consult follow clinical course Persistent tachycardia--probably has underlying tachycardia d/t chronic fidgeting and now sepsis Rett? syndrome ?? on baclofen, Lamotrigine, clonidine 2 mg at bedtime, levocarnitine and levetiracetam, on G-tube feedings obtain nutrition consult to assess? formula and amount of feeding ? ? hold levocarnitine and Lamotrigine, restart tube feed tomorrow if better Seizure d/o--had seizure last night, restart all? home seizure meds ? diabetes mellitus type 2 on Januvia follow blood sugars ? hypothyroidism resume levothyroxine. abnormal ekg on admission-no other ekg available , patient is nonverbal echo added will [facility] to get [facility] -any previous ekg d/w with pcp Dr Santacruz -ekg changes since and trops neg they will send record by tomorrow. may need cardio eval. ?DVT prophylaxis:? Lovenox Quality Stroke Does the patient have a stroke diagnosis?: No VTE Prior VTE?: No VTE Risk Level:: Medical - moderate - high VTE Device Contraindication: Treatment Not Indicated VTE Drug Contraindication: N/A - Med Ordered
[2021-10-27 15:57] VITALS: BP 130/69; PULSE 106; RESP 17; TEMP 37.2; O2SAT 96
--- NOTE | 2021-10-27 16:00 | CA_ITS ---
Transthoracic Echocardiogram Patient (Last, First, Middle): Alejandro Santos, Gender: Female Date of : 1985 Age: 36 Procedure Date: 10/27/2021 Procedure Type: Transthoracic Echocardiogram Location: S3E Height: 127. cm Weight: 51.71 kg BSA: 1.29 m2 Heart Rate: bpm BP: 160 / 75 mmHg Car Detailer: CP/TO Referring MD: Marj Savage MD Symptoms: T wave inversion Study Quality: Technically Difficult Conclusions: - The left ventricular systolic function is normal. The visually estimated ejection fraction is between 55-60%. - No obvious valvular pathology seen on this study. Findings Left Ventricle Normal left ventricular cavity size. There is normal left ventricular wall thickness. The left ventricular systolic function is normal. The visually estimated ejection fraction is between 55-60%. Regional wall motion abnormalities can not be excluded due to suboptimal endocardial definition. Diastolic function is normal for age. Right Ventricle Normal right ventricular cavity size and systolic function. Atria Both atria are normal in size. Aortic Valve The aortic valve structure and function is likely normal. There is no aortic valve stenosis. There is no aortic valve regurgitation. Mitral Valve There is mild anterior and posterior mitral leaflet thickening. There is trace mitral valve regurgitation. There is no mitral valve stenosis. Pulmonic Valve The pulmonic valve is likely normal. Tricuspid Valve There is trace tricuspid valve regurgitation. There is no evidence of pulmonary hypertension. Great Vessels The aortic annulus, sinuses of valsalva, and asc aorta are normal in size. Venous The inferior vena cava was not well visualized. Pericardium/Pleural There is no evidence of pericardial effusion. Prior Study Comparison No prior study available for comparison. Recommendations, Care & Conclusions No obvious valvular pathology seen on this study. Measurements 2D Linear Measurements IVSd: 0.83 0.6-0.9/0.6-1.0 cm LVIDd: 3.59 3.9-5.3/4.2-5.9 cm LVIDd Index: 2.78 2.4-3.2/2.2-3.1 cm/m2 LVIDs: 2.42 2.0-3.6 cm LVPWd: 0.75 0.7-1.1 cm LA Diam: 2.90 2.7-3.8/3.0-4.0 cm LAIDs Index: 2.25 1.5-2.3 cm/m2 LV Mass: 96.10 67-162/88-224 g LV Mass Index: 74.49 43-95/49-115 g/m2 LVOT Diam: 1.50 3.0+(-)1.3 cm 2D Systolic Function EF 4C: 59.80 >55% Mitral Valve MV Pk E: 0.93 MV PK A: 0.89 MV Decel Time: 125.00 E/A: 1.00 E'Lateral: 11.00 E'Medial: 7.83 E/E' Med: 11.90 E/E' Lat: 8.50 PHT: 37.00 MVA PHT: 5.95 Decel Childress: 7.44 Aortic Valve AoV Pk Blair: 1.69 AoV Mn Blair: 1.23 AoV VTI: 0.33 AoV Pk Grad: 11.00 Aov Mn Grad: 7.00 INA Cont.VTI: 1.07 LVOT LVOT Pk Blair: 1.22 LVOT Mn Blair: 0.78 LVOT VTI: 0.20 LVOT Pk Grad: 6.00 LVOT Mn Grad: 3.00 LVOT Diam: 1.50 LVOT Area: 1.77 Diastolic Function MV Pk E: 0.93 MV Pk A: 0.89 E/A: 1.00 E'Medial: 7.83 E/E' Med: 11.90 E' Laterial: 11.00 E/E' Lat: 8.50 Right Ventricle TAPSE (mm): 19.00 TVS' Blair: 19.60 Great Vessels Aorta Sinus of Valsalva: 2.24 2.0-3.[address] Ridge: 1.97 1.7-3.4 cm Ao Asc: 2.40 2.1-3.4 cm Updated in Other Vendor System with Status of Final Jaime Perdomo MD electronically signed on 10/28/2021 12:08:58 PM with status of Final
[2021-10-27 17:39] LABS: Glucose, Whole Blood 180 mg/dL (60-115)
[2021-10-27] MEDS: HYDROmorphone HCl 0.5 MG/0.5 ML SYRINGE IVPUSH (18:25)
[2021-10-27 20:00] VITALS: BP 121/58; PULSE 84; RESP 18; TEMP 36.9; O2SAT 96
[2021-10-27 20:35] LABS: Glucose, Whole Blood 160 mg/dL (60-115)
[2021-10-27] MEDS: lamoTRIgine 100 MG TABLET G-TUBE (21:13)
[2021-10-28] VITALS (7 sets, daily range): BP systolic 101–135; BP diastolic 57–92; PULSE 85–107; RESP 16–18; TEMP 36–36.8; O2SAT 94–100
[2021-10-28 00:15] LABS: Glucose, Whole Blood 180 mg/dL (60-115)
[2021-10-28] MEDS: levETIRAcetam Oral Soln 500 MG/5 ML 750 MG G-TUBE ×2 (00:24→14:04)
[2021-10-28] MEDS: Piperacillin Sodium/Tazobactam 3.375 GM in 0.9 % Sodium Chloride 50 ML IV ×5 (00:24→23:53)
[2021-10-28] MEDS: KCl 20 mEq in 5 % Dextrose 20 MEQ/1,000 ML IV.SOLN 125 MEQ IVCONT ×2 (00:40→10:25)
[2021-10-28] MEDS: HYDROmorphone HCl 0.5 MG/0.5 ML SYRINGE IVPUSH ×3 (04:00→18:20)
[2021-10-28 05:51] LABS: Glucose, Whole Blood 244 mg/dL (60-115)
[2021-10-28] MEDS: Insulin Lispro 100 UNIT/ML 3 ML VIAL SUBCUT ×3 (06:15→18:11)
[2021-10-28] MEDS: Enoxaparin Sodium 40 MG/0.4 ML SYRINGE SUBCUT (06:17)
[2021-10-28 07:52] LABS: Glucose, Whole Blood 230 mg/dL (60-115)
[2021-10-28 08:16] LABS: ~Hepatitis A Antibody IgM Nonreactive (Nonreactive)
[2021-10-28] MEDS: lamoTRIgine 100 MG TABLET G-TUBE ×2 (10:27→21:09)
[2021-10-28] MEDS: Levothyroxine Sodium 25 MCG TABLET G-TUBE (10:28)
[2021-10-28 10:45] LABS: Alanine Aminotransferase 88 U/L (0-31); Albumin Level 3.9 g/dL (3.5-5.0); Alkaline Phosphatase 471 U/L (39-117); Anion Gap 17 (12-20); Aspartate Amino Transferase 30 U/L (5-31); Bilirubin Direct 0.2 mg/dL (0.0-0.5); Bilirubin Total 0.4 mg/dL (0.0-1.0); Blood Urea Nitrogen 2 mg/dL (9-16); Calcium 9.9 mg/dL (8.4-10.2); Carbon Dioxide 20 mmol/L (22-29); Chloride 107 mmol/L (96-108); Creatinine Clr Calc Pharmacy 82.3; Estimated Glomerular Filt Rate > 60; Glucose Random 111 mg/dL (60-115); Potassium 4.1 mmol/L (3.3-5.1); Sodium 140 mmol/L (135-145)
--- NOTE | 2021-10-28 11:16 | P.CONCA_ITS ---
History of Present Illness History of Present Illness Date of Service: 10/28/21 Chief complaint: PNA, Pancreatitis Narrative: This is a cardiology consultation regarding abnormal EKG. Patient has Rett syndrome and nonverbal. She has been admitted to the hospital with a diagnosis of pancreatitis, pneumonia and sepsis. From the cardiac standpoint, EKG was thought to be abnormal and hence we have been consulted. Patient not able to give any information and hence discussed with mother using printer maintainer. She states that patient is not known to have any congenital heart disease or in fact any cardiac issues at any point in time. As she is nonverbal, unable to elicit any symptoms directly from patient. Review of Systems Review of Systems: Unable to obtain review of systems due to patient's mental status. [facility] Past Medical History Medical History Rett syndrome Family History Family History (Updated 10/23/21 @ 06:36 by Deidre Coffey MD) Other No family history of coronary artery disease Social History Social History (Updated 10/23/21 @ 06:37 by Deidre Coffey MD) Household Members: Family Housing: Apartment Alcohol intake: never Patient Tobacco Use Status: Never used Tobacco service: No Current occupational status: disabled Meds Allergies Allergy/AdvReac Type Severity Reaction Status Date / Time No Known Allergies Allergy Verified 10/22/21 22:44 Active Medications: Current Medications Acetaminophen (Acetaminophen 325 Mg Tablet) 650 mg PO Q6H PRN PRN Reason: Pain, Mild (Pain Scale 1-3) Last Admin: 10/27/21 12:41 Dose: 650 mg Acetaminophen (Acetaminophen Supp 650 Mg Supp.Rect) 650 mg IN Q6H PRN PRN Reason: Pain, Mild (Pain Scale 1-3) Last Admin: 10/23/21 06:51 Dose: 650 mg Albuterol/Ipratropium (Albuterol/Iprat 2.5/0.5mg 3 Ml Ampul.Neb) 3 ml INHALE RQ4H PRN PRN Reason: Shortness of Breath/Wheezing Dextrose (Dextrose 50 % 25 Gm/50 Ml Syringe) 25 gm IVPUSH Q15M PRN; Protocol PRN Reason: per Hypoglycemia Standing Ord. Enoxaparin Sodium (Enoxaparin Sodium 40 Mg/0.4 Ml Syringe) 40 mg SUBCUT Q24H JAMES Last Admin: 10/28/21 06:17 Dose: 40 mg Glucose (Glucose Gel 15 Gm Gel..Gram.) 15 gm PO Q15M PRN; Protocol PRN Reason: per Hypoglycemia Standing Ord. Hydromorphone HCl (Hydromorphone Hcl 0.5 Mg/0.5 Ml Syringe) 0.5 mg IVPUSH Q4H PRN; Protocol PRN Reason: Pain, Severe (Pain Scale 7-10) Last Admin: 10/28/21 10:26 Dose: 0.5 mg Piperacillin Sod/Tazobactam (Sod 3.375 gm/ Sodium Chloride) 50 mls @ 100 mls/hr IV Q6H JAMES Last Infusion: 10/28/21 06:51 Dose: Infused Potassium Chloride/Dextrose () 20 meq in 1,000 mls @ 125 mls/hr IVCONT .Q8H JAMES Last Admin: 10/28/21 10:25 Dose: 125 mls/hr Insulin Human Lispro (Insulin Lispro 100 Unit/Ml 3 Ml Vial) 0 unit SUBCUT Q6H JAMES; Protocol Last Admin: 10/28/21 06:15 Dose: 4 unit Lamotrigine (Lamotrigine 100 Mg Tablet) 100 mg G-TUBE BID [facility] Last Admin: 10/28/21 10:27 Dose: 100 mg Levetiracetam (Levetiracetam Oral Soln 500 Mg/5 Ml) 750 mg G-TUBE Q12H JAMES Last Admin: 10/28/21 00:24 Dose: 750 mg Levothyroxine Sodium (Levothyroxine Sodium 25 Mcg Tablet) 25 mcg G-TUBE DAILY AJMES Last Admin: 10/28/21 10:28 Dose: 25 mcg Lorazepam (Lorazepam 2 Mg/Ml Vial) 1 mg IVPUSH Q2H PRN PRN Reason: Seizures Last Admin: 10/26/21 06:25 Dose: 1 mg Ondansetron HCl (Ondansetron Hcl 4 Mg/2 Ml Vial) 4 mg IVPUSH Q8H PRN PRN Reason: Nausea and Vomiting Last Admin: 10/25/21 21:19 Dose: 4 mg Sodium Chloride (0.9 % Sodium Chloride Flush 3 Ml Syringe) 3 ml IVFLUSH QSHIFT [facility] Last Admin: 10/28/21 10:37 Dose: Not Given Home Medications Medication Instructions Recorded Confirmed Last Taken Type baclofen 10 mg tablet 20 mg PO TID 10/23/21 10/23/21 Unknown History clonidine HCl 0.1 mg tablet 2 tab PO BEDTIME 10/23/21 10/23/21 Unknown History docusate sodium 50 mg/5 mL oral 5 ml PO BID 10/23/21 10/23/21 Unknown History liquid (Docu) lamotrigine 25 mg tablet 4 tab PO BID 10/23/21 10/23/21 Unknown History levetiracetam 100 mg/mL oral 7.5 ml G-tube Q12H 10/23/21 10/23/21 Unknown Hi story solution levocarnitine (with sugar) 100 2.5 ml PO BID 10/23/21 10/23/21 Unknown History mg/mL oral solution levothyroxine 25 mcg tablet 1 tab G-tube DAILY 10/23/21 10/23/21 Unknown History miconazole nitrate 2 % topical 1 appl topical NEEDED itch 10/23/21 10/23/21 Unknown History powder (Anti-Fungal) nystatin 100,000 unit/gram topical 1 appl topical BID 10/23/21 10/23/21 Unknown History powder sitagliptin 100 mg tablet (Januvia) 1 tab PO DAILY 10/23/21 10/23/21 Unknown History trazodone 50 mg tablet 0.5 tab PO BEDTIME insomnia 10/23/21 10/23/21 Unknown History Physical Exam Vital Signs: Vital Signs: Last Vital Signs Temp 98.2 F 10/28/21 11:02 Pulse 100 10/28/21 11:02 Resp 17 10/28/21 11:02 BP 118/75 10/28/21 11:02 Pulse Ox 94 10/28/21 11:02 O2 Del Method 10/28/21 11:02 O2 Flow Rate 2 10/23/21 16:00 BMI result Body Mass Index 32.1 Const: Other: constantly moving around, moaning Orientation/consciousness: No patient oriented x3 HEENT: Other: grossly unremarkable Chest: Chest palpation & inspection: normal inspection of the chest Resp: Other: difficult to examine due to lack of co-operation, but grossly no overt wheezing or crackles Cardio: Other: limited exam- no obvious murmurs GI: Palpation (GI): Soft to palpation Back/Spine/Pelvis: Other: unremarkable Skin: General skin exam: no rashes or lesions noted Neuro: General: No patient oriented x3 and moves all extremities Extrem: General: Yes normal to inspection Psych: Appearance: grossly abnormal Objective Labs and Meds Result diagrams: 10/26/21 08:40 10/28/21 10:14 Lab results: Laboratory Results - last 24 hr 10/23/21 10/27/21 10/27/21 18:37 09:50 11:21 Sodium 136 Potassium 3.8 D Chloride 104 Carbon Dioxide 17 L Anion Gap 19 BUN 4 L Creatinine 0.52 Estim Creat Clear Calc 79.1 Estimated GFR > 60 POC Glucose 215 H Random Glucose 231 H Calcium 9.1 Total Bilirubin Direct Bilirubin AST ALT Alkaline Phosphatase Total Protein Albumin Hepatitis A IgM Ab Nonreactive 10/27/21 10/27/21 10/28/21 17:36 20:09 00:10 Sodium Potassium Chloride Carbon Dioxide Anion Gap BUN Creatinine Estim Creat Clear Calc Estimated GFR POC Glucose 180 H 160 H 180 H Random Glucose Calcium Total Bilirubin Direct Bilirubin AST ALT Alkaline Phosphatase Total Protein Albumin Hepatitis A IgM Ab 10/28/21 10/28/21 10/28/21 05:46 07:48 10:14 Sodium 140 Potassium 4.1 Chloride 107 Carbon Dioxide 20 L Anion Gap 17 BUN 2 L Creatinine 0.50 Estim Creat Clear Calc 82.3 Estimated GFR > 60 POC Glucose 244 H 230 H Random Glucose 111 Calcium 9.9 D Total Bilirubin 0.4 Direct Bilirubin 0.2 AST 30 ALT 88 H Alkaline Phosphatase 471 H D Total Protein 8.0 D Albumin 3.9 D Hepatitis A IgM Ab ECG Interpretation: EKG with sinus rhythm at 01:19/Min; ST depression/T inversions in the anteroseptal leads. Either nonspecific or could be from ischemia. Assessment and Plan (1) Abnormal EKG: Status: Acute (2) Rett syndrome: Status: Acute Plan Compared with EKGs from [facility], June 2021. There are some EKGs from then which show upright T-waves but some others that show anterior T inversions. Hence these changes at least a few months old. Etiology is not clear. At her age, coronary disease less likely but still possible. Other possibility is that these are just nonspecific findings. She has completed an echocardiogram and we can review that. Otherwise, considering her mental status and lack of understanding, likely not a candidate for any form of ischemia workup. Total time spent including review of old records, discussion with mother, Dr. Savage, counseling, coordination of care-65 minutes. Procedures Date of Service Date of Service: 10/28/21
[2021-10-28 11:18] LABS: Glucose, Whole Blood 158 mg/dL (60-115)
[2021-10-28 13:23] LABS: Troponin-I High Sensitivity < 3.5 ng/L (<3.5-17.0)
--- NOTE | 2021-10-28 14:49 | MHC.CLN ---
F/U PATIENT IS DAY 6 NPO AND NO TUBE FEEDING. COMMUNICATED WITH DR. GUZMÁN AND OK TO START TUBE FEEDING. RECOMMEND JEVITY 1.0 AT MAX GOAL RATE 50ML/HR WITH 240ML FREE WATER FLUSHES Q 8 HRS TO PROVIDE 1272KCALS (24KCALS/KG), 53G PROTEIN (1.0G/KG), 1722ML TOTAL WATER FROM FORMULA AND FLUSHES (33ML/KG). START FORMULA AT 20ML/HR AND INCREASE BY 10ML Q 4 HRS UNTIL MAX GOAL IS ACHIEVED. MONITOR TOLERANCE, RESIDUALS AND LYTES.
--- NOTE | 2021-10-28 15:45 | MHC.CM.PN ---
CARDIOLOGY CONSULT COMPLETED. CASE MANAGEMENT FOLLOWING FOR DC PLAN.
--- NOTE | 2021-10-28 15:54 | P.PNIM_ITS ---
Subjective Subjective Date of Service: 10/28/21 Interval History: Acute pancreatitis, abnormal EKG Review of Systems Nonverbal, comfortable Physical Exam Vital Signs: Vital Signs: Last Vital Signs Temp 98.2 F 10/28/21 11:02 Pulse 100 10/28/21 11:02 Resp 17 10/28/21 11:02 BP 118/75 10/28/21 11:02 Pulse Ox 94 10/28/21 11:02 O2 Del Method 10/28/21 11:02 O2 Flow Rate 2 10/23/21 16:00 BMI result Body Mass Index 32.1 ?General: constantly moving, non-verbal( as per mother at her baseline) Resp:? CTA bilateral CVS: S1,S2,RRR,tachy GI: +BS, NT, no distention Skin: No rash Neuro:? not able to assess Psych: at her baseline per mother Objective Data Active Medications Acetaminophen (Acetaminophen 325 Mg Tablet) 650 mg PO Q6H PRN PRN Reason: Pain, Mild (Pain Scale 1-3) Last Admin: 10/27/21 12:41 Dose: 650 mg Documented By: EDIN Acetaminophen (Acetaminophen Supp 650 Mg Supp.Rect) 650 mg AK Q6H PRN PRN Reason: Pain, Mild (Pain Scale 1-3) Last Admin: 10/23/21 06:51 Dose: 650 mg Documented By: JANE Albuterol/Ipratropium (Albuterol/Iprat 2.5/0.5mg 3 Ml Ampul.Neb) 3 ml INHALE RQ4H PRN PRN Reason: Shortness of Breath/Wheezing Dextrose (Dextrose 50 % 25 Gm/50 Ml Syringe) 25 gm IVPUSH Q15M PRN; Protocol PRN Reason: per Hypoglycemia Standing Ord. Enoxaparin Sodium (Enoxaparin Sodium 40 Mg/0.4 Ml Syringe) 40 mg SUBCUT Q24H JAMES Last Admin: 10/28/21 06:17 Dose: 40 mg Documented By: MACEY Glucose (Glucose Gel 15 Gm Gel..Gram.) 15 gm PO Q15M PRN; Protocol PRN Reason: per Hypoglycemia Standing Ord. Hydromorphone HCl (Hydromorphone Hcl 0.5 Mg/0.5 Ml Syringe) 0.5 mg IVPUSH Q4H PRN; Protocol PRN Reason: Pain, Severe (Pain Scale 7-10) Last Admin: 10/28/21 10:26 Dose: 0.5 mg Documented By: LUNA Piperacillin Sod/Tazobactam (Sod 3.375 gm/ Sodium Chloride) 50 mls @ 100 mls/hr IV Q6H [facility] Last Infusion: 10/28/21 12:21 Dose: 0 mls/hr Documented By: LUNA Insulin Human Lispro (Insulin Lispro 100 Unit/Ml 3 Ml Vial) 0 unit SUBCUT Q6H JAMES; Protocol Last Admin: 10/28/21 11:40 Dose: 2 unit Documented By: LUNA Lamotrigine (Lamotrigine 100 Mg Tablet) 100 mg G-TUBE BID [facility] Last Admin: 10/28/21 10:27 Dose: 100 mg Documented By: LUNA Levetiracetam (Levetiracetam Oral Soln 500 Mg/5 Ml) 750 mg G-TUBE Q12H [facility] Last Admin: 10/28/21 14:04 Dose: 750 mg Documented By: LUNA Levothyroxine Sodium (Levothyroxine Sodium 25 Mcg Tablet) 25 mcg G-TUBE DAILY [facility] Last Admin: 10/28/21 10:28 Dose: 25 mcg Documented By: LUNA Lorazepam (Lorazepam 2 Mg/Ml Vial) 1 mg IVPUSH Q2H PRN PRN Reason: Seizures Last Admin: 10/26/21 06:25 Dose: 1 mg Documented By: JANETH Ondansetron HCl (Ondansetron Hcl 4 Mg/2 Ml Vial) 4 mg IVPUSH Q8H PRN PRN Reason: Nausea and Vomiting Last Admin: 10/25/21 21:19 Dose: 4 mg Documented By: RAFI Sodium Chloride (0.9 % Sodium Chloride Flush 3 Ml Syringe) 3 ml IVFLUSH QSHIFT [facility] Last Admin: 10/28/21 10:37 Dose: Not Given Documented By: LUNA Non-Admin Reason: IV Running Labs CBC & Chem 7: 10/26/21 08:40 10/28/21 10:14 Labs: Laboratory Results - last 24 hr 10/23/21 10/27/21 10/27/21 18:37 17:36 20:09 Anion Gap Estim Creat Clear Calc Estimated GFR POC Glucose 180 H 160 H Random Glucose Calcium Total Bilirubin Direct Bilirubin AST ALT Alkaline Phosphatase Troponin I High Sens Total Protein Albumin Hepatitis A IgM Ab Nonreactive 10/28/21 10/28/21 10/28/21 00:10 05:46 07:48 Anion Gap Estim Creat Clear Calc Estimated GFR POC Glucose 180 H 244 H 230 H Random Glucose Calcium Total Bilirubin Direct Bilirubin AST ALT Alkaline Phosphatase Troponin I High Sens Total Protein Albumin Hepatitis A IgM Ab 10/28/21 10/28/21 10/28/21 10:14 11:06 12:43 Anion Gap 17 Estim Creat Clear Calc 82.3 Estimated GFR > 60 POC Glucose 158 H Random Glucose 111 Calcium 9.9 D Total Bilirubin 0.4 Direct Bilirubin 0.2 AST 30 ALT 88 H Alkaline Phosphatase 471 H D Troponin I High Sens < 3.5 Total Protein 8.0 D Albumin 3.9 D Hepatitis A IgM Ab Microbiology Microbiology Results: Microbiology 10/23/21 00:34 Blood Culture - Final Blood - Venous No growth after 5 days. 10/23/21 00:34 Blood Culture - Final Blood - Venous No growth after 5 days. Assessment and Plan (1) Rett syndrome: Status: Acute (2) Abnormal EKG: Status: Acute (3) Acute pancreatitis: Status: Acute Plan day-5 36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 due to pneumonia, met sepsis criteria due to tachycardia, tachypnea, fever and leukocytosis remains same--clincally improving. WBC is now normal -? continue IV zosyn, cultures negative at 48 ?? CT abdomen showed moderate distention of the stomach ? acute pancreatitis/ elevated LFTs - ?CT findings of acute pancreatitis, patient nonverbal difficult to assess pain, on examination abdomen soft patient not moaning with palpation ? ? cont. IV fluids, - ? abdominal ultrasound limited study because she's not able to stay still, pancreas left lobe of liver common bile duct and caught bladder not well seen right kidney is normal ? ? triglyceride 63, lipase 58 ? ? hold Lamotrigine, follow LFTs are trending down GI recommend MRCP but she cannot stay still, repeat US:Significantly limited examination. A probable gallstone is seen towards the neck portion. The common bile duct is poorly visualized but appears to be normal in caliber. , Get surgery consult for likely gallstone pancreatitis ? nausea vomiting question related to elevated LFTs pancreatitis related to infection will hold levocarnitine since it can cause nausea and vomiting treat infection as above, nutrition consult follow clinical course Persistent tachycardia--probably has underlying tachycardia d/t chronic fidgeting and now sepsis Rett? syndrome ?? on baclofen, Lamotrigine, clonidine 2 mg at bedtime, levocarnitine and levetiracetam, on G-tube feedings obtain nutrition consult to assess? formula and amount of feeding ? ? hold levocarnitine and Lamotrigine, restart tube feed tomorrow if better Seizure d/o--had seizure last night, restart all? home seizure meds ? diabetes mellitus type 2 on Januvia follow blood sugars ? hypothyroidism resume levothyroxine. abnormal ekg on admission-no other ekg available , patient is nonverbal d/w with pcp Dr Santacruz -ekg changes since and trops neg [id number] neg echo seems fine : The left ventricular systolic function is normal.? The visually estimated ejection fraction is between 55-60%. ? - No obvious valvular pathology seen on this study.? ?? cardio eval-considering her mental status and lack of understanding, likely not a candidate for any form of ischemia workup. ?DVT prophylaxis:? Lovenox Quality Stroke Does the patient have a stroke diagnosis?: No VTE Prior VTE?: No VTE Risk Level:: Medical - moderate - high VTE Device Contraindication: Treatment Not Indicated VTE Drug Contraindication: N/A - Med Ordered
[2021-10-28 16:18] LABS: Glucose, Whole Blood 210 mg/dL (60-115)
[2021-10-28 17:53] LABS: Glucose, Whole Blood 187 mg/dL (60-115)
[2021-10-28] MEDS: 0.9 % Sodium Chloride Flush 3 ML SYRINGE IVFLUSH (21:15)
[2021-10-28 22:32] LABS: Glucose, Whole Blood 133 mg/dL (60-115)
[2021-10-29] VITALS (11 sets, daily range): BP systolic 102–148; BP diastolic 50–85; PULSE 90–120; RESP 17–20; TEMP 36–36.7; O2SAT 92–100
[2021-10-29 05:12] LABS: Glucose, Whole Blood 115 mg/dL (60-115)
[2021-10-29] MEDS: Piperacillin Sodium/Tazobactam 3.375 GM in 0.9 % Sodium Chloride 50 ML IV ×3 (06:01→23:51)
[2021-10-29] MEDS: HYDROmorphone HCl 0.5 MG/0.5 ML SYRINGE IVPUSH ×2 (06:32)
[2021-10-29] MEDS: 0.9 % Sodium Chloride Flush 3 ML SYRINGE IVFLUSH (07:31)
[2021-10-29] MEDS: lamoTRIgine 100 MG TABLET G-TUBE ×2 (07:31→22:25)
[2021-10-29] MEDS: Levothyroxine Sodium 25 MCG TABLET G-TUBE (07:32)
[2021-10-29 08:22] LABS: Hematocrit 37.6 % (37.0-47.0)
[2021-10-29 08:51] LABS: Anion Gap 16 (12-20); Blood Urea Nitrogen 3 mg/dL (9-16); Carbon Dioxide 21 mmol/L (22-29); Chloride 107 mmol/L (96-108); Creatinine Clr Calc Pharmacy 80.7; Estimated Glomerular Filt Rate > 60; Glucose Random 129 mg/dL (60-115); Potassium 4.1 mmol/L (3.3-5.1); Sodium 140 mmol/L (135-145)
[2021-10-29 09:30] LABS: Calcium 9.3 mg/dL (8.4-10.2)
--- NOTE | 2021-10-29 10:06 | PM.PNCARD ---
Subjective Subjective Date of Service: 10/29/21 Interval history: No information from the patient herself as she has normal blood. Discussed with mother. No new complaints according to her. Review of Systems Review of Systems Unable to obtain review of systems due to patient's mental status. Physical Exam Vital Signs: Last Vital Signs Temp 97.7 F 10/29/21 07:54 Pulse 90 10/29/21 07:54 Resp 17 10/29/21 07:54 BP 113/50 L 10/29/21 07:54 Pulse Ox 96 10/29/21 07:54 O2 Del Method 10/29/21 07:54 O2 Flow Rate 2 10/23/21 16:00 BMI result Body Mass Index 32.1 Const Other: constantly moving around, moaning Orientation/consciousness: No patient oriented x3 HEENT Other: grossly unremarkable Chest Chest palpation & inspection: normal inspection of the chest Resp Other: difficult to examine due to lack of co-operation, but grossly no overt wheezing or crackles Cardio Other: limited exam- no obvious murmurs GI Palpation (GI): Soft to palpation Back/Spine/Pelvis Other: unremarkable Skin General skin exam: no rashes or lesions noted Neuro General: No patient oriented x3 and moves all extremities Extrem General: Yes normal to inspection Psych Appearance: grossly abnormal Objective Labs and Meds Result diagrams: 10/29/21 08:07 10/29/21 08:07 Lab results: Laboratory Results - last 24 hr 10/28/21 10/28/21 10/28/21 10:14 11:06 12:43 Hgb Hct Sodium 140 Potassium 4.1 Chloride 107 Carbon Dioxide 20 L Anion Gap 17 BUN 2 L Creatinine 0.50 Estim Creat Clear Calc 82.3 Estimated GFR > 60 POC Glucose 158 H Random Glucose 111 Calcium 9.9 D Total Bilirubin 0.4 Direct Bilirubin 0.2 AST 30 ALT 88 H Alkaline Phosphatase 471 H D Troponin I High Sens < 3.5 Total Protein 8.0 D Albumin 3.9 D 10/28/21 10/28/21 10/28/21 16:07 17:47 22:25 Hgb Hct Sodium Potassium Chloride Carbon Dioxide Anion Gap BUN Creatinine Estim Creat Clear Calc Estimated GFR POC Glucose 210 H 187 H 133 H Random Glucose Calcium Total Bilirubin Direct Bilirubin AST ALT Alkaline Phosphatase Troponin I High Sens Total Protein Albumin 10/29/21 10/29/21 10/29/21 05:07 08:07 08:07 Hgb 12.0 Hct 37.6 Sodium 140 Potassium 4.1 Chloride 107 Carbon Dioxide 21 L Anion Gap 16 BUN 3 L Creatinine 0.51 Estim Creat Clear Calc 80.7 Estimated GFR > 60 POC Glucose 115 Random Glucose 129 H Calcium 9.3 D Total Bilirubin Direct Bilirubin AST ALT Alkaline Phosphatase Troponin I High Sens Total Protein Albumin Progress Note: A&P Assessment and plan (1) Abnormal EKG: Status: Acute (2) Rett syndrome: Status: Acute (3) Preoperative cardiovascular examination: Status: Acute Plan EKGs were compared to previous EKGs from [facility] from June. Some EKGs had shown upright T-waves but some other showed T inversions. Hence these are at least a few months old. High sensitivity troponins is normal. Cardiac BNP is also well within normal limits. Echocardiogram with normal LVEF, 55-60%. Difficult to assess wall motion due to poor endocardial definition. Otherwise unremarkable. Discussed about the findings with patient's mother at the bedside using foreign language interpreter. Explained that the EKG findings could be either nonspecific or could indicate CAD. However, because of patient's mental status and lack of understanding, not really suitable for any form of ischemic workup. She understands rationale. At this time, no further recommendations. With regard to plan for gallbladder surgery, may proceed. Low cardiac risk. Time Spent With Patient Time: Total time spent is greater than 50% in coordination of care (as documented) at patient's floor/unit and/or counseling patient: 35min. Progress Note: Quality Stroke Does the patient have a stroke diagnosis?: No Procedures Date of Service Date of Service: 10/29/21
[2021-10-29 11:42] LABS: Glucose, Whole Blood 104 mg/dL (60-115)
--- NOTE | 2021-10-29 12:26 | P.PNIM_ITS ---
Subjective Subjective Date of Service: 10/29/21 Interval History: Acute pancreatitis, abnormal EKG Review of Systems Nonverbal, comfortable Physical Exam Vital Signs: Vital Signs: Last Vital Signs Temp 97.6 F 10/29/21 11:22 Pulse 100 10/29/21 11:22 Resp 17 10/29/21 11:22 BP 102/68 10/29/21 11:22 Pulse Ox 92 10/29/21 11:22 O2 Del Method 10/29/21 11:22 O2 Flow Rate 2 10/23/21 16:00 BMI result Body Mass Index 32.1 General: constantly moving, non-verbal( as per mother at her baseline) Resp:? CTA bilateral CVS: S1,S2,RRR,tachy GI: +BS, NT, no distention Skin: No rash Neuro:? not able to assess Psych: at her baseline per mother. Objective Data Active Medications Acetaminophen (Acetaminophen 325 Mg Tablet) 650 mg PO Q6H PRN PRN Reason: Pain, Mild (Pain Scale 1-3) Last Admin: 10/27/21 12:41 Dose: 650 mg Documented By: EDIN Acetaminophen (Acetaminophen Supp 650 Mg Supp.Rect) 650 mg DE Q6H PRN PRN Reason: Pain, Mild (Pain Scale 1-3) Last Admin: 10/23/21 06:51 Dose: 650 mg Documented By: JANE Albuterol/Ipratropium (Albuterol/Iprat 2.5/0.5mg 3 Ml Ampul.Neb) 3 ml INHALE RQ4H PRN PRN Reason: Shortness of Breath/Wheezing Dextrose (Dextrose 50 % 25 Gm/50 Ml Syringe) 25 gm IVPUSH Q15M PRN; Protocol PRN Reason: per Hypoglycemia Standing Ord. Enoxaparin Sodium (Enoxaparin Sodium 40 Mg/0.4 Ml Syringe) 40 mg SUBCUT Q24H [facility] Last Admin: 10/29/21 06:04 Dose: Not Given Documented By: MARILYN Non-Admin Reason: ? procedure Glucose (Glucose Gel 15 Gm Gel..Gram.) 15 gm PO Q15M PRN; Protocol PRN Reason: per Hypoglycemia Standing Ord. Hydromorphone HCl (Hydromorphone Hcl 0.5 Mg/0.5 Ml Syringe) 0.5 mg IVPUSH Q4H PRN; Protocol PRN Reason: Pain, Severe (Pain Scale 7-10) Last Admin: 10/29/21 06:32 Dose: 0.5 mg Documented By: MARILYN Piperacillin Sod/Tazobactam (Sod 3.375 gm/ Sodium Chloride) 50 mls @ 100 mls/hr IV Q6H [facility] Last Infusion: 10/29/21 06:35 Dose: 0 mls/hr Documented By: MARILYN Insulin Human Lispro (Insulin Lispro 100 Unit/Ml 3 Ml Vial) 0 unit SUBCUT Q6H [facility]; Protocol Last Admin: 10/29/21 11:44 Dose: Not Given Documented By: EDIN Non-Admin Reason: No Insulin Coverage Lamotrigine (Lamotrigine 100 Mg Tablet) 100 mg G-TUBE BID [facility] Last Admin: 10/29/21 07:31 Dose: 100 mg Documented By: EDIN Levetiracetam (Levetiracetam Oral Soln 500 Mg/5 Ml) 750 mg G-TUBE Q12H [facility] Last Admin: 10/29/21 02:20 Dose: Not Given Documented By: MARILYN Non-Admin Reason: NPO Levothyroxine Sodium (Levothyroxine Sodium 25 Mcg Tablet) 25 mcg G-TUBE DAILY [facility] Last Admin: 10/29/21 07:32 Dose: 25 mcg Documented By: EDIN Lorazepam (Lorazepam 2 Mg/Ml Vial) 1 mg IVPUSH Q2H PRN PRN Reason: Seizures Last Admin: 10/26/21 06:25 Dose: 1 mg Documented By: JANETH Ondansetron HCl (Ondansetron Hcl 4 Mg/2 Ml Vial) 4 mg IVPUSH Q8H PRN PRN Reason: Nausea and Vomiting Last Admin: 10/25/21 21:19 Dose: 4 mg Documented By: RAFI Sodium Chloride (0.9 % Sodium Chloride Flush 3 Ml Syringe) 3 ml IVFLUSH QSHIFT [facility] Last Admin: 10/29/21 07:31 Dose: 3 ml Documented By: EDIN Labs CBC & Chem 7: 10/29/21 08:07 10/29/21 08:07 Labs: Laboratory Results - last 24 hr 10/28/21 10/28/21 10/28/21 12:43 16:07 17:47 Anion Gap Estim Creat Clear Calc Estimated GFR POC Glucose 210 H 187 H Random Glucose Calcium Troponin I High Sens < 3.5 10/28/21 10/29/21 10/29/21 22:25 05:07 08:07 Anion Gap 16 Estim Creat Clear Calc 80.7 Estimated GFR > 60 POC Glucose 133 H 115 Random Glucose 129 H Calcium 9.3 D Troponin I High Sens 10/29/21 11:25 Anion Gap Estim Creat Clear Calc Estimated GFR POC Glucose 104 Random Glucose Calcium Troponin I High Sens Assessment and Plan (1) Rett syndrome: Status: Acute (2) Acute pancreatitis: Status: Acute (3) Elevated LFTs: Status: Acute Plan day-6 36-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 due to pneumonia, met sepsis criteria due to tachycardia, tachypnea, fever and leukocytosis remains same--clincally improving. WBC is now normal -? continue IV zosyn, cultures negative at 48 ?? CT abdomen showed moderate distention of the stomach ? acute pancreatitis/ elevated LFTs - ?CT findings of acute pancreatitis, patient nonverbal difficult to assess pain, on examination abdomen soft patient not moaning with palpation ? ? cont. IV fluids, - ? abdominal ultrasound limited study because she's not able to stay still, pancreas left lobe of liver common bile duct and caught bladder not well seen right kidney is normal ? ? triglyceride 63, lipase 58 ? ? hold Lamotrigine, follow LFTs are trending down GI recommend MRCP but she cannot stay still, repeat US:Significantly limited examination. A probable gallstone is seen towards the neck portion. The common bile duct is poorly visualized but appears to be normal in caliber. , Get surgery consult for likely gallstone pancreatitis-possible need lap kisha. ? nausea vomiting question related to elevated LFTs pancreatitis related to i nfection will hold levocarnitine since it can cause nausea and vomiting treat infection as above, nutrition consult follow clinical course Persistent tachycardia--probably has underlying tachycardia d/t chronic fidgeting and now sepsis ?Rett? syndrome ?? on baclofen, Lamotrigine, clonidine 2 mg at bedtime, levocarnitine and levetiracetam, on G-tube feedings obtain nutrition consult to assess? formula and amount of feeding ? ? hold levocarnitine and Lamotrigine, restart tube feed tomorrow if better ?Seizure d/o--had seizure last night, restart all? home seizure meds ? diabetes mellitus type 2 on Januvia follow blood sugars ? hypothyroidism resume levothyroxine. ?abnormal ekg on admission-no other ekg available , patient is nonverbal d/w with pcp Dr Santacruz -ekg changes since and trops neg tropsx1 neg echo seems fine :?The left ventricular systolic function is normal.? The visually estimated ejection fraction is between 55-60%. ? - No obvious valvular pathology seen on this study.?cardio eval-considering her mental status and lack of understanding, likely not a candidate for any form of ischemia workup. ?DVT prophylaxis:? Lovenox inpatient need: acute pancreatitis , elevated lft's and gallstone-lap kisha Quality Stroke Does the patient have a stroke diagnosis?: No VTE Prior VTE?: No VTE Risk Level:: Medical - moderate - high VTE Device Contraindication: Treatment Not Indicated VTE Drug Contraindication: N/A - Med Ordered
[2021-10-29] MEDS: Lactated Ringers 1,000 ML 80 ML IVCONT ×2 (12:50→16:18)
--- NOTE | 2021-10-29 13:10 | PC.NURSE ---
dr. hunt aware of elevated pulse 119-122. patient at rest - pulse is 98. sign language interpreter present during doctor evaluation
--- NOTE | 2021-10-29 13:54 | PC.NURSE ---
nurse anesthetists will hang the keppra in the or.
--- NOTE | 2021-10-29 14:51 | MHC.CLN ---
F/U PT'S TF CURRENTLY ON HOLD FOR PROCEDURE TODAY PT RECEIVING JEVITY 1.0 AT MAX GOAL RATE 50ML/HR WITH 240ML FREE WATER FLUSHES Q 8 HRS TO PROVIDE 1272KCALS (24KCALS/KG), 53G PROTEIN (1.0G/KG), 1722ML TOTAL WATER FROM FORMULA AND FLUSHES (33ML/KG). 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
--- NOTE | 2021-10-29 15:37 | P.OP_ITS ---
Operative Note Operative Note Date of Service: 10/29/21 Narrative: Preoperative diagnosis:Gallstone pancreatitis Postoperative diagnosis:same Procedure:Laparoscopic cholecystitis Surgeon: Escobar Wellington MD Senior Accounting Clerk: YOEL Gilman Anesthesia:General ET Indications for procedure:36 year old female presenting with history of gallstone pancreatitis, presenting now for laparoscopic cholecystectomy Operative findings:Patient found to have a markedly inflamed and scarred g allbladder with adhesions to transverse colon mesentary and omentum ; gallstones Specimen:gallbladder Estimated blood loss:10 mls Complications:none Procedure details: Patient was brought to the OR and placed in a supine position. After administering general anesthesia the patient's abdomen was prepped with Betadine and draped in a sterile fashion. A surgical time-out was called the consent confirmed. Patient received preoperative antibiotics and Venodyne boots were not placed due to the patient's body habitus. Local anesthesia consisting of 0.5% Sensorcaine with epinephrine was then infiltrated a periumbilical region. A Veress needle was then inserted while elevating abdominal cavity with towel clips. After a positive drop test the abdomen was insufflated to a pressure of 15 mmHg. The Veress needle was then removed and a 5 mm trocar inserted under direct vision. The abdomen was then explored with the camera. A 30 degree 5 mm scope was used for this procedure. Dense adhe sions were noted to the liver edge from the transverse colon mesentery and omentum. A 12 mm trocar was placed in the epigastrium and 2 5 mm trocars placed in the right upper quadrant. Patient was placed in reverse Trendelenburg position and rotated to the left. The gallbladder was able to be visualized through the dense adhesions. This was grasped with a blunt grasper and retracted cephalad. Adhesions were then taken down off the liver edge using a combination of blunt and electrocautery dissection. The gallbladder was then dissected down towards the infundibulum. Infundibulum was grasped with the grasper and retracted away from the liver bed. Gallstone was noted at the neck of the gallbladder. Peritoneum was then dissected off the gallbladder wall to revealed the junction with the cystic duct. Cystic artery was noted posterior to this. After obtaining a critical view the cystic duct was doubly clipped with hemoclips and divided. The cystic artery was also doubly clipped and divided. The gallbladder was then dissected off the liver bed using electrocautery with a hook dissector. The gallbladder is completely dissected and placed in Endo-Catch bag. This was then brought out through the epigastric incision. The specimen was sent to pathology for further examination. The abdomen was then irrigated with saline solution. The liver edge was raw from the adhesions therefore a piece of Surgicel was applied to assure adequate hemostasis. No active bleeding or bile leak could be identified. The abdomen was irrigated and suctioned dry. CO2 was then evacuated all trocars removed. No bleeding was noted from the trocar sites. Fascia was closed at the epigastric incision using a [id number] 0 Polysorb suture. Skin was closed in all incisions using a subcuticular 4-0 Polysorb suture. Sterile dressings consisting of Steri-Strips, 2 x 2 gauze and Tegaderm were then applied. The patient tolerated the procedure well. Sponge, instrument, needle counts repo rted as correct. The patient was transferred to PACU in stable condition.
[2021-10-29 16:57] LABS: Glucose, Whole Blood 161 mg/dL (60-115)
[2021-10-29 20:13] LABS: Glucose, Whole Blood 161 mg/dL (60-115)
[2021-10-30] VITALS (7 sets, daily range): BP systolic 104–146; BP diastolic 55–82; PULSE 96–112; RESP 16–18; TEMP 36.6–37; O2SAT 91–96
[2021-10-30] MEDS: HYDROmorphone HCl 0.5 MG/0.5 ML SYRINGE IVPUSH ×4 (01:53→23:48)
[2021-10-30] MEDS: levETIRAcetam Oral Soln 500 MG/5 ML 750 MG G-TUBE ×2 (01:54→13:36)
[2021-10-30] MEDS: Lactated Ringers 1,000 ML 80 ML IVCONT ×2 (03:39→18:27)
[2021-10-30 04:06] LABS: Glucose, Whole Blood 81 mg/dL (60-115)
[2021-10-30 05:44] LABS: MANUAL DIFF FLAG NO
[2021-10-30 05:53] LABS: Basophils Percent Auto 0.1 % (0-2); Eosinophils Percent Auto 0.2 % (0-4); Hematocrit 34.9 % (37.0-47.0); Hemoglobin 11.2 g/dl (12.0-16.0); Imm Gran Abs Auto 0.07 X10*3/uL (0.00-0.03); Imm Gran Pct Auto 0.5 % (0.0-0.4); Lymphocytes Absolute Auto 1.4 X10*3/uL (1.2-4.9); Lymphocytes Percent Auto 10.2 % (20-40); Mean Corpuscular HGB Conc 32.1 g/dl (31.0-35.0); Mean Corpuscular Hemoglobin 27.4 pg (27.0-33.0); Mean Corpuscular Volume 85.3 fL (80.0-98.0); Monocytes Absolute Auto 0.6 X10*3/uL (0.1-1.2); Monocytes Percent Auto 4.4 % (2-11); Neutrophils Percent Auto 84.6 % (45-73); Platelet Count 544 X10*3/uL (160-400); Red Blood Count 4.09 X10*6/uL (4.20-5.50); Red Cell Distribution Width 13.4 % (11.0-16.0); White Blood Count 14.2 X10*3/uL (4.8-10.8)
[2021-10-30] MEDS: Enoxaparin Sodium 40 MG/0.4 ML SYRINGE SUBCUT (06:13)
[2021-10-30] MEDS: Piperacillin Sodium/Tazobactam 3.375 GM in 0.9 % Sodium Chloride 50 ML IV ×4 (06:14→23:49)
--- NOTE | 2021-10-30 08:17 | PM.PNGS ---
Subjective Subjective Date of Service: 10/30/21 Interval history: Pod 1 following laparoscopic cholecystectomy. Patient nonverbal. Physical Exam Vital Signs: Vital Signs: Last Vital Signs Temp 97.8 F 10/30/21 07:52 Pulse 100 10/30/21 07:52 Resp 17 10/30/21 07:52 BP 125/58 L 10/30/21 07:52 Pulse Ox 96 10/30/21 07:52 O2 Del Method 10/30/21 07:52 O2 Flow Rate 2 10/29/21 16:00 BMI result Body Mass Index 32.1 Const: General: no acute distress and patient obtunded Orientation/consciousness: patient obtunded Resp: Effort & Inspection: normal respiratory effort GI: Other: Abdomen soft and nondistended. Incisions are clean, dry, and intact. Neuro: General: patient obtunded Extrem: Other: No edema Objective Data Active Medications Acetaminophen (Acetaminophen 325 Mg Tablet) 650 mg PO Q6H PRN PRN Reason: Pain, Mild (Pain Scale 1-3) Last Admin: 10/27/21 12:41 Dose: 650 mg Documented By: EDIN Acetaminophen (Acetaminophen Supp 650 Mg Supp.Rect) 650 mg [place] Q6H PRN PRN Reason: Pain, Mild (Pain Scale 1-3) Last Admin: 10/23/21 06:51 Dose: 650 mg Documented By: JANE Dextrose (Dextrose 50 % 25 Gm/50 Ml Syringe) 25 gm IVPUSH Q15M PRN; Protocol PRN Reason: per Hypoglycemia Standing Ord. Enoxaparin Sodium (Enoxaparin Sodium 40 Mg/0.4 Ml Syringe) 40 mg SUBCUT Q24H [facility] Last Admin: 10/30/21 06:13 Dose: 40 mg Documented By: MARILYN Glucose (Glucose Gel 15 Gm Gel..Gram.) 15 gm PO Q15M PRN; Protocol PRN Reason: per Hypoglycemia Standing Ord. Hydromorphone HCl (Hydromorphone Hcl 0.5 Mg/0.5 Ml Syringe) 0.5 mg IVPUSH Q4H PRN; Protocol PRN Reason: Pain, Severe (Pain Scale 7-10) Last Admin: 10/30/21 01:53 Dose: 0.5 mg Documented By: MARILYN Lactated Ringer's (Lr) 1,000 mls @ 80 mls/hr IVCONT .[id number] [facility] Last Admin: 10/30/21 03:39 Dose: 80 mls/hr Documented By: MARILYN Piperacillin Sod/Tazobactam (Sod 3.375 gm/ Sodium Chloride) 50 mls @ 100 mls/hr IV Q6H [facility] Insulin Human Lispro (Insulin Lispro 100 Unit/Ml 3 Ml Vial) 0 unit SUBCUT Q6H [facility]; Protocol Last Admin: 10/30/21 04:11 Dose: Not Given Documented By: MARILYN Non-Admin Reason: No Insulin Coverage Lamotrigine (Lamotrigine 100 Mg Tablet) 100 mg G-TUBE BID [facility] Last Admin: 10/29/21 22:25 Dose: 100 mg Documented By: MARILYN Levetiracetam (Levetiracetam Oral Soln 500 Mg/5 Ml) 750 mg G-TUBE Q12H [facility] Last Admin: 10/30/21 01:54 Dose: 750 mg Documented By: MARILYN Levothyroxine Sodium (Levothyroxine Sodium 25 Mcg Tablet) 25 mcg G-TUBE DAILY [facility] Last Admin: 10/29/21 07:32 Dose: 25 mcg Documented By: EDIN Lorazepam (Lorazepam 2 Mg/Ml Vial) 1 mg IVPUSH Q2H PRN PRN Reason: Seizures Last Admin: 10/26/21 06:25 Dose: 1 mg Documented By: JANETH Ondansetron HCl (Ondansetron Hcl 4 Mg/2 Ml Vial) 4 mg IVPUSH Q8H PRN PRN Reason: Nausea and Vomiting Last Admin: 10/25/21 21:19 Dose: 4 mg Documented By: RAFI Sodium Chloride (0.9 % Sodium Chloride Flush 3 Ml Syringe) 3 ml IVFLUSH QSHIFT [facility] Last Admin: 10/29/21 22:49 Dose: Not Given Documented By: MARILYN Non-Admin Reason: IV Running Labs CBC & Chem 7: 10/30/21 05:41 10/29/21 08:07 Labs: Laboratory Results - last 24 hr 10/29/21 10/29/21 10/29/21 08:07 11:25 16:51 MCV MCH MCHC RDW Plt Count MPV Immature Gran % (Auto) Neut % (Auto) Lymph % (Auto) [place] % (Auto) Eos % (Auto) Baso % (Auto) Lymph # (Auto) [place] # (Auto) Eos # (Auto) Baso # (Auto) Abs Immat Gran (auto) Absolute Neuts (auto) Absolute Nucleated RBC Nucleated RBC % (auto) Anion Gap 16 Estim Creat Clear Calc 80.7 Estimated GFR > 60 POC Glucose 104 161 H Random Glucose 129 H Calcium 9.3 D 10/29/21 10/30/21 10/30/21 20:08 03:59 05:41 MCV 85.3 MCH 27.4 MCHC 32.1 RDW 13.4 Plt Count 544 H D MPV 9.0 L Immature Gran % (Auto) 0.5 H Neut % (Auto) 84.6 H Lymph % (Auto) 10.2 L [place] % (Auto) 4.4 Eos % (Auto) 0.2 Baso % (Auto) 0.1 Lymph # (Auto) 1.4 [place] # (Auto) 0.6 Eos # (Auto) 0.0 Baso # (Auto) 0.0 Abs Immat Gran (auto) 0.07 H Absolute Neuts (auto) 12.0 H Absolute Nucleated RBC 0.000 Nucleated RBC % (auto) 0.0 Anion Gap Estim Creat Clear Calc Estimated GFR POC Glucose 161 H 81 Random Glucose Calcium Procedures Date of Service Date of Service: 10/30/21 Progress Note: A&P Assessment and plan (1) Acute pancreatitis: Status: Acute Plan Pod 1 following laparoscopic cholecystectomy. Findings were consistent with acute and chronic cholecystitis due to cholelithiasis. Single gallstone noted at the neck of the gallbladder. The patient seems to have tolerated the procedure well. She may resume her usual feedings and medications. Time Spent With Patient Time: Total time spent is greater than 50% in coordination of care (as documented) at patient's floor/unit and/or counseling patient: Quality Stroke Does the patient have a stroke diagnosis?: No VTE Prior VTE?: No VTE Risk Level:: Medical - moderate - high VTE Device Contraindication: Treatment Not Indicated VTE Drug Contraindication: N/A - Med Ordered
[2021-10-30] MEDS: 0.9 % Sodium Chloride Flush 3 ML SYRINGE IVFLUSH ×2 (10:46→19:54)
[2021-10-30] MEDS: lamoTRIgine 100 MG TABLET G-TUBE ×2 (10:46→21:34)
[2021-10-30] MEDS: Levothyroxine Sodium 25 MCG TABLET G-TUBE ×2 (10:46→10:52)
--- NOTE | 2021-10-30 11:03 | MHC.CLN ---
F/U LAPAROSCOPIC CHOLECYSTECTOMY 10/29. PER GI MD THIS AM, MAY RESUME FEEDINGS. CONTINUE CURRENT TUBE FEEDING ORDER. JEVITY 1.0 AT MAX GOAL RATE 50ML/HR WITH 240ML FREE WATER FLUSHES Q 8 HRS TO PROVIDE 1272KCALS (24KCALS/KG), 53G PROTEIN (1.0G/KG), 1722ML TOTAL WATER FROM FORMULA AND FLUSHES (33ML/KG). RECOMMEND RE-START AT 20 ML PER HOUR AND INCREASE BY 10 ML EVERY 4 HOURS TO MAX GOAL RATE. USES JEVITY 1.0 AT HOME. CONTINUE TO MONITOR TOLERANCE, RESIDUALS, AND LYTES.
--- NOTE | 2021-10-30 11:37 | HO.POSTANES ---
Post Anesthesia Evaluation Post Anesthesia Evaluation Vital Signs: Vital Signs Temp Pulse Resp BP Pulse Ox O2 Del Method 10/30/21 07:52 97.8 F 100 17 125/58 L 96 Room Air 10/30/21 04:00 97.8 F 96 18 104/59 L 95 Room Air 10/30/21 00:00 97.9 F 110 H 18 146/66 H 96 Room Air Anesthesia: General Endotracheal-GETA Mental Status: Awake Pain Control: Satisfactory Nausea/Vomiting: None Hydration: Adequate Anesthesia-Related Issues: No Anes. Related Issues
[2021-10-30 11:54] LABS: Glucose, Whole Blood 87 mg/dL (60-115)
[2021-10-30 14:31] LABS: Anion Gap 15 (12-20); Blood Urea Nitrogen 4 mg/dL (9-16); Calcium 8.8 mg/dL (8.4-10.2); Carbon Dioxide 26 mmol/L (22-29); Chloride 102 mmol/L (96-108); Creatinine Clr Calc Pharmacy 87.6; Estimated Glomerular Filt Rate > 60; Glucose Random 86 mg/dL (60-115); Potassium 3.7 mmol/L (3.3-5.1); Sodium 139 mmol/L (135-145)
--- NOTE | 2021-10-30 14:50 | HO.PM.IMPN ---
Subjective Subjective Date of Service: 10/30/21 Interval History: Acute pancreatitis, abnormal EKG Review of Systems Nonverbal, s/p lap kisha yesterday Physical Exam Vital Signs: Vital Signs: Last Vital Signs Temp 98.6 F 10/30/21 11:46 Pulse 100 10/30/21 11:46 Resp 17 10/30/21 11:46 BP 109/56 L 10/30/21 11:46 Pulse Ox 92 10/30/21 11:46 O2 Del Method 10/30/21 11:46 O2 Flow Rate 2 10/29/21 16:00 BMI result Body Mass Index 32.1 General: constantly moving, non-verbal( as per mother at her baseline) Resp:? CTA bilateral CVS: S1,S2,RRR,tachy GI: +BS, NT, no distention, abd area operation area seems clean , no discharge. Skin: No rash Neuro:? not able to assess Psych: at her baseline per mother. Objective Data Active Medications Acetaminophen (Acetaminophen 325 Mg Tablet) 650 mg PO Q6H PRN PRN Reason: Pain, Mild (Pain Scale 1-3) Last Admin: 10/27/21 12:41 Dose: 650 mg Documented By: EDIN Acetaminophen (Acetaminophen Supp 650 Mg Supp.Rect) 650 mg VT Q6H PRN PRN Reason: Pain, Mild (Pain Scale 1-3) Last Admin: 10/23/21 06:51 Dose: 650 mg Documented By: JANE Dextrose (Dextrose 50 % 25 Gm/50 Ml Syringe) 25 gm IVPUSH Q15M PRN; Protocol PRN Reason: per Hypoglycemia Standing Ord. Enoxaparin Sodium (Enoxaparin Sodium 40 Mg/0.4 Ml Syringe) 40 mg SUBCUT Q24H [facility] Last Admin: 10/30/21 06:13 Dose: 40 mg Documented By: MARILYN Glucose (Glucose Gel 15 Gm Gel..Gram.) 15 gm PO Q15M PRN; Protocol PRN Reason: per Hypoglycemia Standing Ord. Hydromorphone HCl (Hydromorphone Hcl 0.5 Mg/0.5 Ml Syringe) 0.5 mg IVPUSH Q4H PRN; Protocol PRN Reason: Pain, Severe (Pain Scale 7-10) Last Admin: 10/30/21 10:45 Dose: 0.5 mg Documented By: EDIN Lactated Ringer's (Lr) 1,000 mls @ 80 mls/hr IVCONT .[id number] [facility] Last Infusion: 10/30/21 14:48 Dose: 0 mls/hr Documented By: EDIN Piperacillin Sod/Tazobactam (Sod 3.375 gm/ Sodium Chloride) 50 mls @ 100 mls/hr IV Q6H [facility] Last Infusion: 10/30/21 14:47 Dose: 0 mls/hr Documented By: EDIN Insulin Human Lispro (Insulin Lispro 100 Unit/Ml 3 Ml Vial) 0 unit SUBCUT Q6H [facility]; Protocol Last Admin: 10/30/21 10:47 Dose: Not Given Documented By: EDIN Non-Admin Reason: NPO Lamotrigine (Lamotrigine 100 Mg Tablet) 100 mg G-TUBE BID [facility] Last Admin: 10/30/21 10:46 Dose: 100 mg Documented By: EDIN Levetiracetam (Levetiracetam Oral Soln 500 Mg/5 Ml) 750 mg G-TUBE Q12H [facility] Last Admin: 10/30/21 13:36 Dose: 750 mg Documented By: EDIN Levothyroxine Sodium (Levothyroxine Sodium 25 Mcg Tablet) 25 mcg G-TUBE DAILY [facility] Last Admin: 10/30/21 10:52 Dose: 25 mcg Documented By: EDIN Lorazepam (Lorazepam 2 Mg/Ml Vial) 1 mg IVPUSH Q2H PRN PRN Reason: Seizures Last Admin: 10/26/21 06:25 Dose: 1 mg Documented By: JANETH Ondansetron HCl (Ondansetron Hcl 4 Mg/2 Ml Vial) 4 mg IVPUSH Q8H PRN PRN Reason: Nausea and Vomiting Last Admin: 10/25/21 21:19 Dose: 4 mg Documented By: RAFI Sodium Chloride (0.9 % Sodium Chloride Flush 3 Ml Syringe) 3 ml IVFLUSH QSHIFT [facility] Last Admin: 10/30/21 10:46 Dose: 3 ml Documented By: EDIN Labs CBC & Chem 7: 10/30/21 05:41 10/30/21 13:52 Labs: Laboratory Results - last 24 hr 10/29/21 10/29/21 10/30/21 16:51 20:08 03:59 MCV MCH MCHC RDW Plt Count MPV Immature Gran % (Auto) Neut % (Auto) Lymph % (Auto) [place] % (Auto) Eos % (Auto) Baso % (Auto) Lymph # (Auto) [place] # (Auto) Eos # (Auto) Baso # (Auto) Abs Immat Gran (auto) Absolute Neuts (auto) Absolute Nucleated RBC Nucleated RBC % (auto) Anion Gap Estim Creat Clear Calc Estimated GFR POC Glucose 161 H 161 H 81 Random Glucose Calcium 10/30/21 10/30/21 10/30/21 05:41 11:48 13:52 MCV 85.3 MCH 27.4 MCHC 32.1 RDW 13.4 Plt Count 544 H D MPV 9.0 L Immature Gran % (Auto) 0.5 H Neut % (Auto) 84.6 H Lymph % (Auto) 10.2 L [place] % (Auto) 4.4 Eos % (Auto) 0.2 Baso % (Auto) 0.1 Lymph # (Auto) 1.4 [place] # (Auto) 0.6 Eos # (Auto) 0.0 Baso # (Auto) 0.0 Abs Immat Gran (auto) 0.07 H Absolute Neuts (auto) 12.0 H Absolute Nucleated RBC 0.000 Nucleated RBC % (auto) 0.0 Anion Gap 15 Estim Creat Clear Calc 87.6 Estimated GFR > 60 POC Glucose 87 Random Glucose 86 Calcium 8.8 Assessment and Plan (1) Rett syndrome: Status: Acute (2) Elevated LFTs: Status: Acute (3) Pneumonia: Status: Acute (4) Acute pancreatitis: Status: Acute Plan day-7 36-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 due to pneumonia, met sepsis criteria due to tachycardia, tachypnea, fever and leukocytosis remains same--clincally improving. mild leucocytosis-no new fevers , blood cultures negative at 5 days -? continue IV zosyn day 7,moniter cbc ?? CT abdomen showed moderate distention of the stomach also shows constipation. leucocytosis probable reactive to surgery/pancreatitis/penumonia . ? acute pancreatitis/ elevated LFTs - ?CT findings of acute pancreatitis, patient nonverbal difficult to assess pain, on examination abdomen soft patient not moaning with palpation ? ? cont. IV fluids, - ? abdominal ultrasound limited study because she's not able to stay still, pancreas left lobe of liver common bile duct and caught bladder not well seen right kidney is normal ? ? triglyceride 63, lipase 58 ? ? hold Lamotrigine, follow LFTs are trending down GI recommend MRCP but she cannot stay still, repeat US:Significantly limited examination. A probable gallstone is seen towards the neck portion. The common bile duct is poorly visualized but appears to be normal in caliber. patient is status post lap kisha Yesterday, started on G-tube feeding. ? nausea vomiting question related to elevated LFTs pancreatitis related to infection will hold levocarnitine since it can cause nausea and vomiting treat infection as above, nutrition consult follow clinical course Persistent tachycardia--probably has underlying tachycardia d/t chronic fidgeting and now sepsis ?Rett? syndrome ?? on baclofen, Lamotrigine, clonidine 2 mg at bedtime, levocarnitine and levetiracetam, on G-tube feedings obtain nutrition consult to assess? formula and amount of feeding ? ? hold levocarnitine and Lamotrigine, restart tube feed tomorrow if better ?Seizure d/o--had seizure last night, restart all? home seizure meds ? diabetes mellitus type 2 on Januvia follow blood sugars ? hypothyroidism resume levothyroxine. ?abnormal ekg on admission-no other ekg available , patient is nonverbal d/w with pcp Dr Santacruz -ekg changes since and trops neg tropsx1 neg echo seems fine :?The left ventricular systolic function is normal.? The visually estimated ejection fraction is between 55-60%. ? - No obvious valvular pathology seen on this study.?cardio eval-considering her mental status and lack of understanding, likely not a candidate for any form of ischemia workup. Constipation: Patient did not had bowel movement for 2-3 days but she was not on any tube feeds because of pancreatitis from at least 5 6 days, initial CT abdomen shows constipation specially stool in the sigmoid area bowel sounds are present, patient does is nonverbal but does not seem to be discomfort able with abdominal examine and abdomen seems soft. will add laxatives,replete electrolytes, monitor, if needed for any new signs - we may add kub ?DVT prophylaxis:? Lovenox inpatient need: acute pancreatitis , elevated lft's and gallstone-lap kisha Quality Stroke Does the patient have a stroke diagnosis?: No VTE Prior VTE?: No VTE Risk Level:: Medical - moderate - high VTE Device Contraindication: Treatment Not Indicated VTE Drug Contraindication: N/A - Med Ordered
[2021-10-30] MEDS: bisacodyL 10 MG SUPP.RECT PR (15:14)
[2021-10-30] MEDS: polyethylene glycoL 3350 17 GM POWD.PACK G-TUBE (15:14)
[2021-10-30] MEDS: Potassium Chloride Packet 20 MEQ PACKET G-TUBE (15:14)
--- NOTE | 2021-10-30 15:26 | MHC.CM.PN ---
Addendum entered by Iwona Leblanc 10/30/21 15:27: DDS JAIME HEBERT [phone] UPDATED WITH PROGRESS. ACCORDING TO [facility], [facility]ERNAL SENT PATIENT HOME ON HOSPICE BUT NEVER SET UP THE SERVICES FOR HER. FOLLOWING DAY PATIENT WAS SENT TO [facility] AND THIS IS WHERE VOMITING WAS ADDRESSED AND G-TUBE PLACED. [facility] IS FOLLOWING CLOSELY AND ASKS FOR UPDATES THEY PRESENT Original Note: PLAN IS TO START GTUBE FEEDS CASE MANAGEMENT FOLLOWING
[2021-10-30 15:27] LABS: Alanine Aminotransferase 52 U/L (0-31); Alkaline Phosphatase 326 U/L (39-117); Aspartate Amino Transferase 27 U/L (5-31); Bilirubin Direct < 0.2 mg/dL (0.0-0.5); Bilirubin Total 0.3 mg/dL (0.0-1.0); Total Protein 5.9 g/dL (6.5-8.0)
[2021-10-30 16:28] LABS: Glucose, Whole Blood 102 mg/dL (60-115)
[2021-10-30 21:31] LABS: Glucose, Whole Blood 162 mg/dL (60-115)
[2021-10-30] MEDS: Insulin Lispro 100 UNIT/ML 3 ML VIAL SUBCUT (21:34)
[2021-10-30 23:38] LABS: Glucose, Whole Blood 171 mg/dL (60-115)
[2021-10-31 03:25] VITALS: BP 102/52; PULSE 112; RESP 16; TEMP 36.6; O2SAT 92
[2021-10-31 05:30] LABS: Glucose, Whole Blood 232 mg/dL (60-115)
[2021-10-31] MEDS: Insulin Lispro 100 UNIT/ML 3 ML VIAL SUBCUT ×3 (05:35→21:06)
[2021-10-31] MEDS: Enoxaparin Sodium 40 MG/0.4 ML SYRINGE SUBCUT (05:35)
[2021-10-31] MEDS: levETIRAcetam Oral Soln 500 MG/5 ML 750 MG G-TUBE ×2 (05:35→13:40)
[2021-10-31] MEDS: Piperacillin Sodium/Tazobactam 3.375 GM in 0.9 % Sodium Chloride 50 ML IV ×2 (05:36→12:29)
[2021-10-31] MEDS: HYDROmorphone HCl 0.5 MG/0.5 ML SYRINGE IVPUSH ×2 (05:36→12:23)
[2021-10-31] MEDS: Lactated Ringers 1,000 ML 80 ML IVCONT (05:36)
[2021-10-31 07:14] LABS: Hematocrit 33.7 % (37.0-47.0); Hemoglobin 10.5 g/dl (12.0-16.0); Mean Corpuscular HGB Conc 31.2 g/dl (31.0-35.0); Mean Corpuscular Hemoglobin 27.3 pg (27.0-33.0); Mean Corpuscular Volume 87.8 fL (80.0-98.0); Mean Platelet Volume 9.3 fL (9.4-12.3); Platelet Count 512 X10*3/uL (160-400); Red Blood Count 3.84 X10*6/uL (4.20-5.50); Red Cell Distribution Width 13.9 % (11.0-16.0); White Blood Count 10.3 X10*3/uL (4.8-10.8)
[2021-10-31 07:47] LABS: Anion Gap 15 (12-20); Blood Urea Nitrogen 3 mg/dL (9-16); Calcium 8.5 mg/dL (8.4-10.2); Carbon Dioxide 24 mmol/L (22-29); Chloride 102 mmol/L (96-108); Creatinine Clr Calc Pharmacy 80.7; Estimated Glomerular Filt Rate > 60; Glucose Random 238 mg/dL (60-115); Sodium 137 mmol/L (135-145)
[2021-10-31 08:00] VITALS: BP 99/50; PULSE 101; RESP 18; TEMP 36.8; O2SAT 92
[2021-10-31] MEDS: lamoTRIgine 100 MG TABLET G-TUBE ×2 (09:33→21:05)
[2021-10-31] MEDS: bisacodyL 10 MG SUPP.RECT PR (09:34)
[2021-10-31] MEDS: polyethylene glycoL 3350 17 GM POWD.PACK G-TUBE (09:35)
[2021-10-31] MEDS: Levothyroxine Sodium 25 MCG TABLET G-TUBE (09:36)
[2021-10-31] MEDS: Acetaminophen 325 MG TABLET 650 MG PO ×2 (09:41→21:08)
--- NOTE | 2021-10-31 09:57 | P.PNGS_ITS ---
Subjective Subjective Date of Service: 10/31/21 Interval history: Patient is nonverbal; discussed with patient's mother with the assistance of a pediatric medical assistant. She reports that her current behavior is at baseline. She is uncertain if she is having any discomfort. She has not passed bowels for 5 days; she is tolerating the tube feeds without difficulty. Physical Exam Vital Signs: Vital Signs: Last Vital Signs Temp 98.2 F 10/31/21 08:00 Pulse 101 H 10/31/21 08:00 Resp 18 10/31/21 08:00 BP 99/50 L 10/31/21 08:00 Pulse Ox 92 10/31/21 08:00 O2 Del Method 10/31/21 08:00 O2 Flow Rate 2 10/30/21 23:48 BMI result Body Mass Index 32.1 Const: General: no acute distress Nutritional Appearance: well nourished Orientation/consciousness: Other orientation findings Resp: Effort & Inspection: normal respiratory effort GI: Other: trochar incisions are clean, dry and intact without redness or discharge. Inspection: Yes normal to inspection Palpation (GI): Soft to palpation, nontender, no guarding and not rigid Extrem: General: Yes no pedal edema Objective Data Active Medications Acetaminophen (Acetaminophen 325 Mg Tablet) 650 mg PO Q6H PRN PRN Reason: Pain, Mild (Pain Scale 1-3) Last Admin: 10/31/21 09:41 Dose: 650 mg Documented By: RAI Acetaminophen (Acetaminophen Supp 650 Mg Supp.Rect) 650 mg RI Q6H PRN PRN Reason: Pain, Mild (Pain Scale 1-3) Last Admin: 10/23/21 06:51 Dose: 650 mg Documented By: JANE Bisacodyl (Bisacodyl 10 Mg Supp.Rect) 10 mg RI DAILY [facility] Last Admin: 10/31/21 09:34 Dose: 10 mg Documented By: RAI Dextrose (Dextrose 50 % 25 Gm/50 Ml Syringe) 25 gm IVPUSH Q15M PRN; Protocol PRN Reason: per Hypoglycemia Standing Ord. Enoxaparin Sodium (Enoxaparin Sodium 40 Mg/0.4 Ml Syringe) 40 mg SUBCUT Q24H [facility] Last Admin: 10/31/21 05:35 Dose: 40 mg Documented By: ANTOIC Glucose (Glucose Gel 15 Gm Gel..Gram.) 15 gm PO Q15M PRN; Protocol PRN Reason: per Hypoglycemia Standing Ord. Hydromorphone HCl (Hydromorphone Hcl 0.5 Mg/0.5 Ml Syringe) 0.5 mg IVPUSH Q4H PRN; Protocol PRN Reason: Pain, Severe (Pain Scale 7-10) Last Admin: 10/31/21 05:36 Dose: 0.5 mg Documented By: LEANDRO Lactated Ringer's (Lr) 1,000 mls @ 80 mls/hr IVCONT .[id number] [facility] Last Admin: 10/31/21 05:36 Dose: 80 mls/hr Documented By: LEANDRO Piperacillin Sod/Tazobactam (Sod 3.375 gm/ Sodium Chloride) 50 mls @ 100 mls/hr IV Q6H [facility] Last Infusion: 10/31/21 06:12 Dose: 0 mls/hr Documented By: LEANDRO Insulin Human Lispro (Insulin Lispro 100 Unit/Ml 3 Ml Vial) 0 unit SUBCUT Q6H S ; Protocol Last Admin: 10/31/21 05:35 Dose: 4 unit Documented By: LEANDRO Lamotrigine (Lamotrigine 100 Mg Tablet) 100 mg G-TUBE BID [facility] Last Admin: 10/31/21 09:33 Dose: 100 mg Documented By: RAI Levetiracetam (Levetiracetam Oral Soln 500 Mg/5 Ml) 750 mg G-TUBE Q12H [facility] Last Admin: 10/31/21 05:35 Dose: 750 mg Documented By: LEANDRO Levothyroxine Sodium (Levothyroxine Sodium 25 Mcg Tablet) 25 mcg G-TUBE DAILY [facility] Last Admin: 10/31/21 09:36 Dose: 25 mcg Documented By: RAI Lorazepam (Lorazepam 2 Mg/Ml Vial) 1 mg IVPUSH Q2H PRN PRN Reason: Seizures Last Admin: 10/26/21 06:25 Dose: 1 mg Documented By: JANETH Ondansetron HCl (Ondansetron Hcl 4 Mg/2 Ml Vial) 4 mg IVPUSH Q8H PRN PRN Reason: Nausea and Vomiting Last Admin: 10/25/21 21:19 Dose: 4 mg Documented By: HO.CHOIP Polyethylene Glycol (Polyethylene Glycol 3350 17 Gm Powd.Pack) 17 gm G-TUBE DAILY [facility] Last Admin: 10/31/21 09:35 Dose: 17 gm Documented By: RAI Sodium Chloride (0.9 % Sodium Chloride Flush 3 Ml Syringe) 3 ml IVFLUSH QSHIFT [facility] Last Admin: 10/31/21 09:36 Dose: Not Given Documented By: RAI Non-Admin Reason: IV Running Labs CBC & Chem 7: 10/31/21 05:52 10/31/21 05:52 Labs: Laboratory Results - last 24 hr 10/30/21 10/30/21 10/30/21 11:48 13:52 16:19 MCV MCH MCHC RDW Plt Count MPV Absolute Nucleated RBC Nucleated RBC % (auto) Anion Gap 15 Estim Creat Clear Calc 87.6 Estimated GFR > 60 POC Glucose 87 102 Random Glucose 86 Calcium 8.8 Total Bilirubin 0.3 Direct Bilirubin < 0.2 AST 27 ALT 52 H Alkaline Phosphatase 326 H D Total Protein 5.9 L D Albumin 3.0 L D 10/30/21 10/30/21 10/31/21 21:26 23:28 05:22 MCV MCH MCHC RDW Plt Count MPV Absolute Nucleated RBC Nucleated RBC % (auto) Anion Gap Estim Creat Clear Calc Estimated GFR POC Glucose 162 H 171 H 232 H Random Glucose Calcium Total Bilirubin Direct Bilirubin AST ALT Alkaline Phosphatase Total Protein Albumin 10/31/21 10/31/21 05:52 05:52 MCV 87.8 MCH 27.3 MCHC 31.2 RDW 13.9 Plt Count 512 H MPV 9.3 L Absolute Nucleated RBC 0.000 Nucleated RBC % (auto) 0.0 Anion Gap 15 Estim Creat Clear Calc 80.7 Estimated GFR > 60 POC Glucose Random Glucose 238 H Calcium 8.5 Total Bilirubin Direct Bilirubin AST ALT Alkaline Phosphatase Total Protein Albumin Procedures Date of Service Date of Service: 10/31/21 Progress Note: A&P Assessment and plan (1) Acute pancreatitis: Status: Acute Plan POD #2 s/p laparoscopic cholecystectomy. Wounds are clean, dry and intact without redness or discharge. She is tolerating G-tube feeding. Patient started on MiraLax and Dulcolax for bowels. If no improvement, recommend fleets enema. Time Spent With Patient Time: Total time spent is greater than 50% in coordination of care (as documented) at patient's floor/unit and/or counseling patient: Quality Stroke Does the patient have a stroke diagnosis?: No VTE Prior VTE?: No VTE Risk Level:: Medical - moderate - high VTE Device Contraindication: Treatment Not Indicated VTE Drug Contraindication: N/A - Med Ordered
[2021-10-31 11:28] LABS: Glucose, Whole Blood 209 mg/dL (60-115)
[2021-10-31 12:00] VITALS: BP 101/69; PULSE 104; RESP 18; TEMP 36.7; O2SAT 99
--- NOTE | 2021-10-31 15:28 | P.PNIM_ITS ---
Subjective Subjective Date of Service: 10/31/21 Interval History: constipation, pancreatitis, s/p lap kisha Review of Systems seems improving but no bm yet Nonverbal Physical Exam Vital Signs: Vital Signs: Last Vital Signs Temp 98.0 F 10/31/21 12:00 Pulse 104 H 10/31/21 12:00 Resp 18 10/31/21 12:00 BP 101/69 10/31/21 12:00 Pulse Ox 99 10/31/21 12:00 O2 Del Method 10/31/21 12:00 O2 Flow Rate 2 10/30/21 23:48 BMI result Body Mass Index 32.1 ?General: constantly moving, non-verbal( as per mother at her baseline) Resp:? CTA bilateral CVS: S1,S2,RRR,tachy GI: +BS, NT, no distention, abd area operation area seems clean , no discharge. Skin: No rash Neuro:? not able to assess Psych: at her baseline per mother. Objective Data Active Medications Acetaminophen (Acetaminophen 325 Mg Tablet) 650 mg PO Q6H PRN PRN Reason: Pain, Mild (Pain Scale 1-3) Last Admin: 10/31/21 09:41 Dose: 650 mg Documented By: RAI Acetaminophen (Acetaminophen Supp 650 Mg Supp.Rect) 650 mg DC Q6H PRN PRN Reason: Pain, Mild (Pain Scale 1-3) Last Admin: 10/23/21 06:51 Dose: 650 mg Documented By: JANE Bisacodyl (Bisacodyl 10 Mg Supp.Rect) 10 mg DC DAILY [facility] Last Admin: 10/31/21 09:34 Dose: 10 mg Documented By: RAI Dextrose (Dextrose 50 % 25 Gm/50 Ml Syringe) 25 gm IVPUSH Q15M PRN; Protocol PRN Reason: per Hypoglycemia Standing Ord. Enoxaparin Sodium (Enoxaparin Sodium 40 Mg/0.4 Ml Syringe) 40 mg SUBCUT Q24H [facility] Last Admin: 10/31/21 05:35 Dose: 40 mg Documented By: ANTOIC Glucose (Glucose Gel 15 Gm Gel..Gram.) 15 gm PO Q15M PRN; Protocol PRN Reason: per Hypoglycemia Standing Ord. Hydromorphone HCl (Hydromorphone Hcl 0.5 Mg/0.5 Ml Syringe) 0.5 mg IVPUSH Q4H PRN; Protocol PRN Reason: Pain, Severe (Pain Scale 7-10) Last Admin: 10/31/21 12:23 Dose: 0.5 mg Documented By: RAI Piperacillin Sod/Tazobactam (Sod 3.375 gm/ Sodium Chloride) 50 mls @ 100 mls/hr IV Q6H [facility] Last Infusion: 10/31/21 13:02 Dose: 100 mls/hr Documented By: RAI Insulin Human Lispro (Insulin Lispro 100 Unit/Ml 3 Ml Vial) 0 unit SUBCUT Q6H [facility]; Protocol Last Admin: 10/31/21 12:27 Dose: 4 unit Documented By: RAI Lamotrigine (Lamotrigine 100 Mg Tablet) 100 mg G-TUBE BID [facility] Last Admin: 10/31/21 09:33 Dose: 100 mg Documented By: RAI Levetiracetam (Levetiracetam Oral Soln 500 Mg/5 Ml) 750 mg G-TUBE Q12H [facility] Last Admin: 10/31/21 13:40 Dose: 750 mg Documented By: RAI Levothyroxine Sodium (Levothyroxine Sodium 25 Mcg Tablet) 25 mcg G-TUBE DAILY [facility] Last Admin: 10/31/21 09:36 Dose: 25 mcg Documented By: RAI Lorazepam (Lorazepam 2 Mg/Ml Vial) 1 mg IVPUSH Q2H PRN PRN Reason: Seizures Last Admin: 10/26/21 06:25 Dose: 1 mg Documented By: JANETH Ondansetron HCl (Ondansetron Hcl 4 Mg/2 Ml Vial) 4 mg IVPUSH Q8H PRN PRN Reason: Nausea and Vomiting Last Admin: 10/25/21 21:19 Dose: 4 mg Documented By: RAFI Polyethylene Glycol (Polyethylene Glycol 3350 17 Gm Powd.Pack) 17 gm G-TUBE DAILY [facility] Last Admin: 10/31/21 09:35 Dose: 17 gm Documented By: RAI Sodium Chloride (0.9 % Sodium Chloride Flush 3 Ml Syringe) 3 ml IVFLUSH QSHIFT [facility] Last Admin: 10/31/21 09:36 Dose: Not Given Documented By: RAI Non-Admin Reason: IV Running Labs CBC & Chem 7: 10/31/21 05:52 10/31/21 05:52 Labs: Laboratory Results - last 24 hr 10/30/21 10/30/21 10/30/21 16:19 21:26 23:28 MCV MCH MCHC RDW Plt Count MPV Absolute Nucleated RBC Nucleated RBC % (auto) Anion Gap Estim Creat Clear Calc Estimated GFR POC Glucose 102 162 H 171 H Random Glucose Calcium 10/31/21 10/31/21 10/31/21 05:22 05:52 05:52 MCV 87.8 MCH 27.3 MCHC 31.2 RDW 13.9 Plt Count 512 H MPV 9.3 L Absolute Nucleated RBC 0.000 Nucleated RBC % (auto) 0.0 Anion Gap 15 Estim Creat Clear Calc 80.7 Estimated GFR > 60 POC Glucose 232 H Random Glucose 238 H Calcium 8.5 10/31/21 11:04 MCV MCH MCHC RDW Plt Count MPV Absolute Nucleated RBC Nucleated RBC % (auto) Anion Gap Estim Creat Clear Calc Estimated GFR POC Glucose 209 H Random Glucose Calcium Assessment and Plan (1) Elevated LFTs: Status: Acute (2) Rett syndrome: Status: Acute (3) Acute pancreatitis: Status: Acute Plan day-8 36-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 due to pneumonia, met sepsis criteria due to tachycardia, tachyp sue, fever and leukocytosis remains same--clincally improving. mild leucocytosis-no new fevers , blood cultures negative at 5 days -? continue IV zosyn day 8,moniter cbc ?? CT abdomen showed moderate distention of the stomach ?also shows constipation. leucocytosis probable reactive to surgery/pancreatitis/penumonia . ? acute pancreatitis/ elevated LFTs - ?CT findings of acute pancreatitis, patient nonverbal difficult to assess pain, on examination abdomen soft patient not moaning with palpation ? ? cont. IV fluids, - ? abdominal ultrasound limited study because she's not able to stay still, p ancreas left lobe of liver common bile duct and caught bladder not well seen right kidney is normal ? ? triglyceride 63, lipase 58 ? ? hold Lamotrigine, follow LFTs are trending down GI recommend MRCP but she cannot stay still, repeat US:Significantly limited examination. A probable gallstone is seen towards the neck portion. The common bile duct is poorly visualized but appears to be normal in caliber. ?patient is status post lap kisha? Yesterday, started on G-tube feeding. ? nausea vomiting question related to elevated LFTs pancreatitis related to infection will hold levocarnitine since it can cause nausea and vomiting treat infection as above, nutrition consult follow clinical course Persistent tachycardia--probably has underlying tachycardia d/t chronic fidgetin g and now sepsis ?Rett? syndrome ?? on baclofen, Lamotrigine, clonidine 2 mg at bedtime, levocarnitine and levetiracetam, on G-tube feedings obtain nutrition consult to assess? formula and amount of feeding ? ? hold levocarnitine and Lamotrigine, restart tube feed tomorrow if better ?Seizure d/o--had seizure last night, restart all? home seizure meds ? diabetes mellitus type 2 on Januvia follow blood sugars ? hypothyroidism resume levothyroxine. ?abnormal ekg on admission-no other ekg available , patient is nonverbal d/w with pcp Dr Santacruz -ekg changes since and trops neg tropsx1 neg echo seems fine :?The left ventricular systolic function is normal.? The visually estimated ejection fraction is between 55-60%. ? - No obvious valvular pathology seen on this study.?cardio eval-considering her mental status and lack of understanding, likely not a candidate for any form of ischemia workup. ? Constipation:? Patient did not had bowel movement for 4 days but strated feeding yesterday, initial CT abdomen shows constipation specially stool in the sigmoid area ?bowel sounds are present, patient does is nonverbal but? does not seem to be discomfort able with abdominal examine and abdomen seems soft. ?will add laxatives,replete electrolytes, monitor, add fleet enema if no bm today ?DVT prophylaxis:? Lovenox inpatient need: acute pancreatitis , elevated lft's and gallstone-lap kisha, constipation Quality Stroke Does the patient have a stroke diagnosis?: No VTE Prior VTE?: No VTE Risk Level:: Medical - moderate - high VTE Device Contraindication: Treatment Not Indicated VTE Drug Contraindication: N/A - Med Ordered
--- NOTE | 2021-10-31 16:29 | MHC.CM.PN ---
CM MET W/PT AND FAMILY AT BEDSIDE HOSPITALIST REPORTED SHE MAY BE ABLE TO D/C SUN 11/01, CM DID LET PT'S MOTHER KNOW SHE MAY BE ABLE TO D/C HOME TOMORROW AND ASKED IF SHE WOULD LIKE PT SET UP W/A VNA, PT'S MOPTHER DECLINES HOWEVER D/T LANGUAGE BARRIER CM WILL CONTACT HER TOMORROW W/SALES ADMINISTRATION MANAGER.
[2021-10-31 16:33] VITALS: BP 128/64; PULSE 92; RESP 20; TEMP 36.7; O2SAT 99
[2021-10-31 16:44] LABS: Glucose, Whole Blood 125 mg/dL (60-115)
--- NOTE | 2021-10-31 18:00 | PC.NURSE ---
Addendum entered by Isabela Ceron RN 10/31/21 18:15: nursing traffic maintenance supervisor unable to insert new IV ,patient is due for Zosyn,Dr. Savage made aware Original Note: P IV infiltrated,RN unable to insert a new one I Nursing Science Technician notified E Science Technician will attemt to insert a new IV
[2021-10-31 20:22] VITALS: BP 126/68; PULSE 110; RESP 20; TEMP 37; O2SAT 99
[2021-10-31 20:33] LABS: Glucose, Whole Blood 191 mg/dL (60-115)
[2021-11-01] VITALS: BP 138/84; PULSE 125; RESP 18; TEMP 36.5; O2SAT 96
[2021-11-01] MEDS: levETIRAcetam Oral Soln 500 MG/5 ML 750 MG G-TUBE (02:17)
[2021-11-01] MEDS: cloNIDine HCL 0.2 MG TABLET PO (02:55)
[2021-11-01 04:00] VITALS: BP 129/63; PULSE 99; RESP 18; TEMP 36.6; O2SAT 94
[2021-11-01 04:45] LABS: Glucose, Whole Blood 194 mg/dL (60-115)
[2021-11-01] MEDS: Insulin Lispro 100 UNIT/ML 3 ML VIAL SUBCUT ×2 (04:50→11:47)
[2021-11-01] MEDS: Enoxaparin Sodium 40 MG/0.4 ML SYRINGE SUBCUT (06:02)
[2021-11-01 08:00] VITALS: BP 108/47; PULSE 90; RESP 16; TEMP 36.4; O2SAT 95
[2021-11-01] MEDS: Levothyroxine Sodium 25 MCG TABLET G-TUBE (09:22)
[2021-11-01] MEDS: Acetaminophen 325 MG TABLET 650 MG PO (09:23)
[2021-11-01] MEDS: lamoTRIgine 100 MG TABLET G-TUBE (09:23)
--- NOTE | 2021-11-01 09:38 | P.PNGS_ITS ---
Subjective Subjective Date of Service: 11/01/21 Interval history: Patient reported to have 2 large bowel movements yesterday Physical Exam Vital Signs: Vital Signs: Last Vital Signs Temp 97.5 F 11/01/21 08:00 Pulse 90 11/01/21 08:00 Resp 16 11/01/21 08:00 BP 108/47 L 11/01/21 08:00 Pulse Ox 95 11/01/21 08:00 O2 Del Method 11/01/21 08:00 O2 Flow Rate 2 10/30/21 23:48 BMI result Body Mass Index 32.1 Objective Data Active Medications Acetaminophen (Acetaminophen 325 Mg Tablet) 650 mg PO Q6H PRN PRN Reason: Pain, Mild (Pain Scale 1-3) Last Admin: 11/01/21 09:23 Dose: 650 mg Documented By: RAI Acetaminophen (Acetaminophen Supp 650 Mg Supp.Rect) 650 mg [place] Q6H PRN PRN Reason: Pain, Mild (Pain Scale 1-3) Last Admin: 10/23/21 06:51 Dose: 650 mg Documented By: JANE Bisacodyl (Bisacodyl 10 Mg Supp.Rect) 10 mg [place] DAILY JAMES Last Admin: 11/01/21 09:31 Dose: Not Given Documented By: RAI Non-Admin Reason: LOOSE STOO Clonidine HCl (Clonidine Hcl 0.2 Mg Tablet) 0.2 mg PO BEDTIME JAMES; Protocol Last Admin: 11/01/21 02:55 Dose: 0.2 mg Documented By: SKYLER Dextrose (Dextrose 50 % 25 Gm/50 Ml Syringe) 25 gm IVPUSH Q15M PRN; Protocol PRN Reason: per Hypoglycemia Standing Ord. Enoxaparin Sodium (Enoxaparin Sodium 40 Mg/0.4 Ml Syringe) 40 mg SUBCUT Q24H JAMES Last Admin: 11/01/21 06:02 Dose: 40 mg Documented By: SKYLER Glucose (Glucose Gel 15 Gm Gel..Gram.) 15 gm PO Q15M PRN; Protocol PRN Reason: per Hypoglycemia Standing Ord. Hydromorphone HCl (Hydromorphone Hcl 0.5 Mg/0.5 Ml Syringe) 0.5 mg IVPUSH Q4H PRN; Protocol PRN Reason: Pain, Severe (Pain Scale 7-10) Last Admin: 10/31/21 12:23 Dose: 0.5 mg Insulin Human Lispro (Insulin Lispro 100 Unit/Ml 3 Ml Vial) 0 unit SUBCUT Q6H [facility]; Protocol Last Admin: 11/01/21 04:50 Dose: 2 unit Documented By: SKYLER Comments: poc 194 Lamotrigine (Lamotrigine 100 Mg Tablet) 100 mg G-TUBE BID [facility] Last Admin: 11/01/21 09:23 Dose: 100 mg Documented By: RAI Levetiracetam (Levetiracetam Oral Soln 500 Mg/5 Ml) 750 mg G-TUBE Q12H [facility] Last Admin: 11/01/21 02:17 Dose: 750 mg Documented By: SKYLER Levothyroxine Sodium (Levothyroxine Sodium 25 Mcg Tablet) 25 mcg G-TUBE DAILY [facility] Last Admin: 11/01/21 09:22 Dose: 25 mcg Documented By: RAI Lorazepam (Lorazepam 2 Mg/Ml Vial) 1 mg IVPUSH Q2H PRN PRN Reason: Seizures Last Admin: 10/26/21 06:25 Dose: 1 mg Documented By: JANETH Ondansetron HCl (Ondansetron Hcl 4 Mg/2 Ml Vial) 4 mg IVPUSH Q8H PRN PRN Reason: Nausea and Vomiting Last Admin: 10/25/21 21:19 Dose: 4 mg Documented By: RAFI Polyethylene Glycol (Polyethylene Glycol 3350 17 Gm Powd.Pack) 17 gm G-TUBE DAILY [facility] Last Admin: 11/01/21 09:31 Dose: Not Given Documented By: RAI Non-Admin Reason: N/A Sodium Chloride (0.9 % Sodium Chloride Flush 3 Ml Syringe) 3 ml IVFLUSH QSHIFT [facility] Last Admin: 11/01/21 09:19 Dose: Not Given Documented By: RAI Non-Admin Reason: No Access Labs CBC & Chem 7: 10/31/21 05:52 10/31/21 05:52 Labs: Laboratory Results - last 24 hr 10/31/21 10/31/21 10/31/21 11:04 16:37 20:25 POC Glucose 209 H 125 H 191 H 11/01/21 04:40 POC Glucose 194 H Procedures Date of Service Date of Service: 11/01/21 Progress Note: A&P Assessment and plan (1) Acute pancreatitis: Status: Acute Plan 36-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 Operative findings were consistent with chronic and acute cholecystitis. Patient was initially constipated but is now moving her bowels. She is tolerating tube feeds and appears ready for discharge. She should follow up in the office in approximately 1 week for wound check. Time Spent With Patient Time: Total time spent is greater than 50% in coordination of care (as documented) at patient's floor/unit and/or counseling patient: Quality Stroke Does the patient have a stroke diagnosis?: No VTE Prior VTE?: No VTE Risk Level:: Medical - moderate - high VTE Device Contraindication: Treatment Not Indicated VTE Drug Contraindication: N/A - Med Ordered
--- NOTE | 2021-11-01 10:59 | P.DS_ITS ---
DS: Providers Provider Date of Service: 11/01/21 Date of admission: 10/23/21 06:28 Primary care physician: Sima Arvizu MD Consults: 10/25/21 10:42 Consult to Gastroenterology Routine Consulting Provider: Clarissa Koo Reason for consultation: pancratitis, elevated lfts Has provider been notified: No 10/26/21 08:09 Consult to General Surgery Routine Consulting Provider: Deonte Avila Reason for consultation: suspect gallstone pancreatitis 10/27/21 16:00 Consult to Cardiology Routine Consulting Provider: Jaime Perdomo Reason for consultation: abnormal ekg , nonverbal patient , preop Has provider been notified: No DS: Diagnosis Discharge Diagnosis (1) Acute pancreatitis: Status: Acute DS: Summary Hospital Course Hospital Course: 48-year-old female with past medical history of breath syndrome who presents to the hospital after her mother? Noticed her to have significant amount of vomiting.? Mother reports the patient had nausea and vomiting throughout the day yesterday, she also developed a fever of 100.5, and she was not doing well therefore she brought her to the hospital.? Patient is nonverbal at bedside, wheelchair-bound.? Unable to get much history from the patient herself.? Her mother is her full-time caregiver. ? Unable to obtain full review of system is patient is nonverbal at baseline ?as patient is nonverbal at bedside, mother reports that? the only way she knows she is in pain is if she is groaning moaning, patient has been doing that for the past 2 days.? ?mother reports that patient had bronchitis in May and was admitted to [facility] for over a month for management abnormal liver function. On arrival to the ED patient noted to have a temperature of a? 102.4, heart rate of 127, respiratory rate of 24, satting 93% on room air Labs are significant for WBC count of 16.6, AST of 164, ALT of 277, alk-phos of 526, UA negative, ?chest CT shows? pre bronchial wall thickening and inflammatory changes with scattered adjacent airspace disease predominantly in the posterior dependent portion of the right lower lobe, right middle lobe and to a lesser degree left lower lobe suggesting aspiration pneumonitis ?abdominal CT showed inflammatory changes adjacent to the? tail of the pancreas suggesting of pancreatitis. ? Patient started on antibiotics, IV fluid will be admitted for further management. hospital course: Patient was admitted for sepsis secondary to pneumonia, acute pancreatitis /elevated LFTs, possible gallstones: Patient was started on antibiotics-completed antibiotic, no shortness of breath or sats are fine, blood cultures negative. Acute pancreatitis was treated with supportive care hydration, pain control-seen by Gi and sugery-us abd possible gallstones: So thought to be gallstone pancreatitis-patient had lap kisha, LFTs are improving, patient seems at baseline. Abnormal EKG: Seen by Cardiology and echo was done which seems fine, trop and bnp normal-further management outpatient. constipation-started on luxative -producing bm. further management outpatient. plan: moniter lft's follow up with surgery Yon . also follow up with pcp. Above baca in detail to patient's PCP as well as patient's family. Assessment and plan coordination time spent 50 minute. Time Spent with Patient Time attestation: Total time spent providing and/or coordinating discharge services: Discharge coordination time: Greater than 30 minutes Quality: Safe Use of Opioids Does Pt have an Active Cancer Diagnosis on the Problem List?: No Quality: Stroke Does the patient have a stroke diagnosis?: No Physical Exam Vital Signs: Vital Signs: Last Vital Signs Temp 97.5 F 11/01/21 08:00 Pulse 90 11/01/21 08:00 Resp 16 11/01/21 08:00 BP 108/47 L 11/01/21 08:00 Pulse Ox 95 11/01/21 08:00 O2 Del Method 11/01/21 08:00 O2 Flow Rate 2 10/30/21 23:48 BMI result Body Mass Index 32.1 General: constantly moving, non-verbal( as per mother at her baseline) Resp:? CTA bilateral CVS: S1,S2,RRR GI: +BS, NT, no distention, abd area operation area seems clean , no discharge. peg tube area seems clean . Skin: No rash Neuro:? not able to assess Psych: at her baseline per mother. DS: Data Data Completed and Pending Pending studies at discharge: Pending at discharge 10/29/21 15:12 Surgical [PTH] Routine Labs on day of discharge: Laboratory Results - last 24 hr 10/31/21 10/31/21 10/31/21 11:04 16:37 20:25 POC Glucose 209 H 125 H 191 H 07/03/22 04:40 POC Glucose 194 H 10/30/21 10/30/21 10/30/21 ? 16:19 21:26 23:28 MCV ? ? ? MCH ? ? ? MCHC ? ? ? RDW ? ? ? Plt Count ? ? ? MPV ? ? ? Absolute Nucleated RBC ? ? ? Nucleated RBC % (auto) ? ? ? Anion Gap ? ? ? Estim Creat Clear Calc ? ? ? Estimated GFR ? ? ? POC Glucose ?102 ?162 H ?171 H Random Glucose ? ? ? Calcium ? 10/31/21 10/31/21 10/31/21 ? 05:22 05:52 05:52 MCV ? ?87.8 ? D MCH ? ?27.3 ? MCHC ? ?31.2 ? RDW ? ?13.9 ? Plt Count ? ?512 H ? MPV ? ?9.3 L ? Absolute Nucleated RBC ? ?0.000 ? Nucleated RBC % (auto) ? ?0.0 ? Anion Gap ? ? ?15 Estim Creat Clear Calc ? ? ?80.7 Estimated GFR ? ? ?> 60 POC Glucose ?232 H ? ? Random Glucose ? ? ?238 H Calcium ? ? ?8.5 ? 10/31/21 ? 11:04 MCV ? MCH ? MCHC ? RDW ? Plt Count ? MPV ? Absolute Nucleated RBC ? Nucleated RBC % (auto) ? Anion Gap ? Estim Creat Clear Calc ? Estimated GFR ? POC Glucose ?209 H Random Glucose ? Calcium ? ?US/US abdomen limited IMPRESSION: Significantly limited examination. A probable gallstone is seen towards the neck portion. The common bile duct is poorly visualized but appears to be normal in caliber. CT/CT chest wo con IMPRESSION: *Peribronchial wall thickening and inflammatory changes with scattered adjacent airspace disease predominantly in the posterior dependent portions of the right lower lobe, right middle lobe and to lesser degree left lower lobe. These findings are suspicious for aspiration pneumonitis. *Partial atelectasis of the right upper pulmonary lobe and superior segment of the right lower lobe. *Small left pleural effusion. *Mild bibasilar dependent atelectasis. *Prominent convex leftward scoliosis of the thoracic spine. *Partially visualized inflammatory changes adjacent to the tail the pancreas as noted on the comparison CT of the abdomen and pelvis suspicious for possible pancreatitis. *Partially visualized percutaneous gastrostomy tube and gaseous distention of the stomach. ? CT/CT abdomen pelvis wo con IMPRESSION: *Findings suspicious for acute pancreatitis. Inflammatory changes are present adjacent to the tail of the pancreas. No evidence of pancreatic hemorrhage. No discrete peripancreatic fluid collections. *Prominent quantity of stool within the sigmoid colon at the rectosigmoid junction which may correlate with constipation. No pericolonic inflammatory changes. *Within the incidentally visualized lung bases, partial visualization is made of bibasilar scattered airspace disease and a trace left pleural effusion. A bibasilar predominance of findings is suspicious for aspiration pneumonitis. *Percutaneous gastrostomy tube in place. Moderate distention of the stomach. Discharge Plan Discharge Patient Disposition: Home Health Service Discharge Diagnosis: elevated lft's/acute pancreatitis ,sepsis sec to pneumonia, abnormal ekg. Referrals: Escobar Wellington MD [Physician] - 1 Week (follow up outpatiently) PhysicianRichie [Physician] - 1 Week Discharge Medications: New polyethylene glycol 3350 17 gram Powder In Packet 17 g G-tube DAILY PRN (Reason: constipation) Qty: 30 0RF bisacodyl [Gentle Laxative (bisacodyl)] 10 mg Suppository 10 mg [place] DAILY PRN (Reason: constipation) Qty: 5 0RF acetaminophen [Tylenol] 325 mg tablet 650 mg PO Q6H PRN (Reason: pain) Qty: 10 0RF Continued docusate sodium [Docu] 50 mg/5 mL liquid 5 ml PO BID clonidine HCl 0.1 mg tablet 2 tab PO BEDTIME trazodone 50 mg tablet 0.5 tab PO BEDTIME levothyroxine 25 mcg tablet 1 tab G-tube DAILY lamotrigine 25 mg tablet 4 tab PO BID baclofen 10 mg tablet 20 mg PO TID levetiracetam 100 mg/mL solution 7.5 ml G-tube Q12H Januvia 100 mg tablet 1 tab PO DAILY Anti-Fungal 2 % powder 1 appl topical NEEDED nystatin 100,000 unit/gram powder 1 appl topical BID levocarnitine (with sugar) 100 mg/mL solution 2.5 ml PO BID Discharge Orders: Discharge Order (Routine); Ordered 11/01/21 Ordered By: Marj Savage Diet: Advance to usual diet Activity on Discharge: As tolerated Stand Alone Forms: Patient Portal Discharge page Other Ambulatory Orders: Basic Metabolic Panel (Routine) Timeframe: 2 Days Facility: [facility] - Location: Laboratory Ordered By: Marj Savage Liver Panel (Routine) Timeframe: 2 Days Facility: [facility] - Location: Laboratory Ordered By: Marj Savage Care Plan Goals: Patient was admitted for sepsis secondary to pneumonia, acute pancreatitis /elevated LFTs, possible gallstones: Patient was started on antibiotics-completed antibiotic, no shortness of breath or sats are fine, blood cultures negative. Acute pancreatitis was treated with supportive care hydration, pain control-seen by Gi and sugery-us abd possible gallstones: So thought to be gallstone pancreatitis-patient had lap kisha, LFTs are improving, patient seems at baseline. Abnormal EKG: Seen by Cardiology and echo was done which seems fine, trop and bnp normal-further management outpatient. constipation-started on luxative -producing bm. further management outpatient. Health Concerns: as above. Plan of Treatment: as above. Assessment: as above. Discharge Date/Time: 11/01/21 13:00
[2021-11-01 11:29] LABS: Glucose, Whole Blood 226 mg/dL (60-115)
--- NOTE | 2021-11-01 11:31 | W.MHC.F2F ---
Service Date Service Date: 11/01/21 Encounter Date of encounter: 11/01/21 Encounter: Acute pancreatitis, elevated LFTs, constipation Reasons for Services Signs and symptoms assessed: Abdominal pain now, nausea vomiting Reason for half-way: medication management, medication treatment and teach disease management MD Overseeing Care: Sima Arvizu Homebound: Leaving the home is medically contraindicated at this time without the asist of a device and/or another person due th the listed conditions above and below. Reason homebound: weakness related to hospital stay Homebound supporting statement: Patient has multiple comorbidities including Rett syndrome, recent pancreatitis, gallstone status post lap kisha-needs help with appointments, medication management, lab draws. Certification: Based on the above findings, I certify that this patient is confined to the home and needs intermittent half-way care, physical therapy and/or speech therapy, or continues to need occupational therapy. The patient is under my care, and I have initiated the establishment of the plan of care. The patient will be followed by a physician who will periodically review the plan of care.
--- NOTE | 2021-11-01 11:37 | MHC.CM.PN ---
PT DISCHARGING HOME W/NEW [facility] FOR ALF AND RESUMP OF 48HRS/[employer] AND 24HR CARE BY FAMILY, FAMILY TO TRANSPORT. 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
[2021-11-01 12:00] VITALS: BP 108/63; PULSE 97; RESP 18; TEMP 36.4; O2SAT 94
--- NOTE | 2021-11-01 13:54 | MHC.CM.PN ---
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
== END 2021-11-01 13:00 | disposition home health service (06) | DRG 853 ==
LOC: HO.ED 10-23 01:50 → HO.EDOVER 10-23 06:37 → HO.S3 10-23 15:53
PROVIDERS: Emergency Medicine; Hospitalist; Internal Medicine; Surgery; Admitting Provider Internal Medicine; Emergency Provider Emergency Medicine; PCP Family Medicine; Visit Provider Internal Medicine
PROC: 0FT44ZZ Resection of Gallbladder, Percutaneous Endoscopic Approach (ICD-10-PCS; CPT 47562; principal; 2021-10-29 13:00)
DX: A41.9 Sepsis, unspecified organism (principal); J69.0 Pneumonitis due to inhalation of food and vomit; K85.90 Acute pancreatitis without necrosis or infection, unspecified; F84.2 Rett's syndrome; K80.12 Calculus of gallbladder with acute and chronic cholecystitis without obstruction; G40.909 Epilepsy, unspecified, not intractable, without status epilepticus; K66.0 Peritoneal adhesions (postprocedural) (postinfection); K59.00 Constipation, unspecified; K82.8 Other specified diseases of gallbladder; Z74.01 Bed confinement status; Z93.1 Gastrostomy status; E03.9 Hypothyroidism, unspecified; E11.9 Type 2 diabetes mellitus without complications; Z20.822 Contact with and (suspected) exposure to COVID-19; Z79.890 Hormone replacement therapy; Z79.899 Other long term (current) drug therapy
CPT/HCPCS: 0241U; 36415; 71045; 71250; 74176; 76705; 80048; 80076; 81001; 82947; 83605; 83690; 83880; 84443; 84478; 84484; 84702; 85014; 85018; 85025; 85027; 86704; 86706; 86709; 86803; 87040; 87340; 88304; 93005; 93306; 96361; 96365; 96375; 99285; C1758; J0696; J1100; J1170; J1650; J1885; J2060; J2250; J2405; J2543; J3010

== ENCOUNTER 2023-10-08 17:47 | Emergency (ER) | payer MEDICARE, MEDICAID, SELFPAY ==
--- NOTE | ~2023-10-08 | XR_ITS ---
EXAMINATION: XR CHEST CLINICAL INFORMATION: Coughing following a vomiting episode. COMPARISON: CT chest and chest radiograph dated 10/23/2021. TECHNIQUE: Frontal view of the chest was obtained. FINDINGS: The heart, great vessels, pulmonary vasculature and mediastinum are stable. There is moderately severe elevation of the right hemidiaphragm. There is stable chronic atelectasis within the medial right apex, with associated bronchiectasis. No new infiltrate, effusion or pneumothorax is seen. There is no acute osseous abnormality. XR/XR chest 1V IMPRESSION: Chronic atelectasis is seen at the medial right apex, with associated bronchiectasis. There is chronic elevation of the right hemidiaphragm. No new infiltrate or congestive heart failure is seen.
--- NOTE | ~2023-10-08 | CT_ITS ---
EXAMINATION: CT ABDOMEN AND PELVIS WITHOUT CONTRAST CLINICAL INFORMATION: Recurrent vomiting. COMPARISON: Abdominal ultrasound dated 10/26/2021; CT abdomen and pelvis dated 10/23/2021. TECHNIQUE: Multidetector volumetric imaging was performed from the superior aspect of the liver through the pubic symphysis. Sagittal and coronal reformatted images were obtained on the technologist's workstation. This CT examination was performed using dose optimization techniques as appropriate, variously including the following: *Automated exposure control *Adjustment of mA and/or kV according to patient size (this includes techniques or standardized protocols for targeted exams where dose is matched to indication/reason for exam; i.e. extremities or head) *Use of iterative reconstruction technique DLP: 656 mGy-cm FINDINGS: LUNG BASES: There is mild linear scar/subsegmental atelectasis at the lateral right base. LIVER, GALLBLADDER, AND BILIARY TREE: The liver is normal in size, shape, and attenuation. No focal hepatic lesion or biliary ductal dilatation is present. The gallbladder is surgically absent. PANCREAS: Unremarkable. SPLEEN: Unremarkable. ADRENAL GLANDS: Unremarkable. KIDNEYS AND URETERS: The kidneys are normal in size, shape, and attenuation. No hydronephrosis, hydroureter, or calculi seen. No perinephric stranding. BLADDER: Decompressed and otherwise unremarkable. GASTROINTESTINAL TRACT: An intact gastrostomy tube is noted. There is a large amount of stool within the distal colon, particularly within the rectum, where the impaction is suspected. No obstruction or ileus is seen. The vermiform appendix is not identified with certainty; however, this no finding to suggest acute appendicitis. ABDOMINAL WALL: There is a small fat-containing umbilical hernia. LYMPH NODES: Normal. VASCULAR: Unremarkable. PELVIC VISCERA: The uterus and adnexa are unremarkable. OSSEOUS STRUCTURES: There is a moderate thoracolumbar dextroscoliosis. No acute or aggressive osseous finding is noted. CT/CT abdomen pelvis wo IV con IMPRESSION: 1. Findings suggest constipation, without keith bowel obstruction. No appendicitis or diverticulitis is seen. 2. There is no urinary calculus or obstruction. 3. No mass, free fluid or lymphadenopathy is seen. 4. No acute osseous finding is noted. Fleischner guidelines were followed.
[2023-10-08 18:05] VITALS: BP 123/84; PULSE 110; RESP 18; TEMP 36.3; O2SAT 93; BMI 19.9
--- NOTE | 2023-10-08 18:05 | ED.NAVMDI ---
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 The patient has had vomiting on and off for the last week. The patient had more exaggerated vomiting today that the mother describes as projectile vomiting. She has not vomited in several hours. The patient has a G-tube for primary feeds, but does eat and drink soft liquids at times. The patient's mother states that the patient tends to vomit about 30 minutes after eating or drinking orally The patient has been acting appropriately and has not seemed in any increased discomfort. No fevers or chills have been reported. The patient's father states that this has happened in the past a few years ago and the patient was treated at [place] Associated nausea: Yes Related Data Home Medications ?Medication ?Instructions ?Recorded ?Confirmed baclofen 10 mg tablet 20 mg PO TID 10/23/21 11/13/21 clonidine HCl 0.1 mg tablet 2 tab PO BEDTIME 10/23/21 11/13/21 docusate sodium 50 mg/5 mL oral 5 ml PO BID 10/23/21 11/13/21 liquid (Docu) lamotrigine 25 mg tablet 4 tab PO BID 10/23/21 11/13/21 levetiracetam 100 mg/mL oral 7.5 ml G-tube Q12H 10/23/21 11/13/21 solution levocarnitine (with sugar) 100 2.5 ml PO BID 10/23/21 11/13/21 mg/mL oral solution levothyroxine 25 mcg tablet 1 tab G-tube DAILY 10/23/21 11/13/21 miconazole nitrate 2 % topical 1 appl topical NEEDED itch 10/23/21 11/13/21 powder (Antifungal (miconazole)) nystatin 100,000 unit/gram topical 1 appl topical BID 10/23/21 11/13/21 powder sitagliptin phosphate 100 mg 1 tab PO DAILY 10/23/21 11/13/21 tablet (Januvia) trazodone 50 mg tablet 0.5 tab PO BEDTIME insomnia 10/23/21 11/13/21 Previous Rx's ?Medication ?Instructions ?Recorded acetaminophen 325 mg tablet 650 mg (2 x 325 mg) PO Q6H PRN 11/01/21 (Tylenol) pain #10 tabs bisacodyl 10 mg rectal suppository 10 mg MS DAILY PRN constipation #5 11/01/21 (Gentle Laxative (bisacodyl)) ea polyethylene glycol 3350 17 gram 17 g G-tube DAILY PRN constipation 11/01/21 oral powder packet #30 ea lactulose 20 gram/30 mL oral 20 g (30 mL) PO DAILY PRN laxative 10/08/23 solution effect #1,200 mL mineral oil (Fleet Mineral Oil 118 ml MS DAILY PRN constipation 10/08/23 enema) #266 mL ondansetron 4 mg disintegrating 4 mg PO Q8H PRN nausea and 10/08/23 tablet vomiting #20 tabs polyethylene glycol 3350 17 17 g PO BID #238 grams 10/08/23 gram/dose oral powder (Miralax) Allergies Allergy/AdvReac Type Severity Reaction Status Date / Time No Known Allergies Allergy Verified 10/08/23 18:06 Review of Systems Constitutional: Constitutional: Denies chills and Denies fever(s) Respiratory: Respiratory: Denies cough Gastrointestinal: Gastrointestinal: Denies abdominal pain, Reports nausea and Reports vomiting Integumentary/Breasts: Skin/Breast: Denies rash PMFSH Past Medical History Medical History (Updated 10/08/23 @ 21:06 by Baldo Jordan) Encounter for gastrojejunal tube placement Acute pancreatitis Rett syndrome Surgical History (System 04/20/23 @ 14:51 by Elma Ramos) S/P laparoscopic cholecystectomy (10/29/21) Family History Family History Other No family history of coronary artery disease Social History Social History (System 04/20/23 @ 14:51 by Elma Ramos) Household Members: Family Housing: Apartment Alcohol intake: never Patient Tobacco Use Status: Never used Tobacco Smoked in Last 30 Days: No Use of substances other than those prescribed or required for medical reasons: No Advance Directives: No Advance Directives Information Provided: No Patient : No service: No Current occupational status: disabled Physical Exam Vital Signs: Vital Signs: Last Vital Signs Temp 97.6 F 10/08/23 21:27 Pulse 88 10/08/23 21:27 Resp 18 10/08/23 21:27 BP 112/78 10/08/23 21:27 Pulse Ox 96 10/08/23 21:27 O2 Del Method Room Air 10/08/23 21:27 BMI result Body Mass Index 19.9 Const: General: healthy appearing, comfortable, no acute distress, alert and awake Nutritional Appearance: well nourished HEENT: Head: Yes normocephalic and Yes atraumatic Eyes: Eyelids: Yes eyelids normal Conjunctivae: conjunctivae normal Sclerae: sclerae normal Corneas: corneas normal Pupils: Equal, round and reactive pupils present EOM: EOMs intact bilaterally Neck: Neck: Yes full ROM Resp: Effort & Inspection: normal respiratory effort, able to speak in complete sentences and not labored GI: Other: Abdomen is slightly distended, G-tube in place. No guarding on palpation, abdomen is soft Palpation (GI): Soft to palpation, not firm, nontender, no guarding and not rigid Skin: General skin exam: elasticity normal Neuro: Cranial nerves: Yes Equal, round and reactive pupils present and Yes Bilaterally intact EOM present Course Course Course Narrative: This is a Rapid Medical Examination (RME) performed by Arti Ferrera PA-C in triage. Full HPI, ROS, assessment and treatment plan per primary provider in the Main ED. 38 yo nonverbal, wheelchair bound female with history of Rett syndrome, s/p PEG, hx PNA, hx gallstone pancreatitis s/p lap kisha 2021, who presents to the ER for evaluation of vomiting for the last 2 days. Unable to communicate if in pain. No fevers. +coughing a little bit, no SOB. Small amount of diarrhea today. In triage patient is awake and alert, intermittently moaning out. Her abdomen is soft, unable to elicit any tenderness over difficult to appropriately examined in triage. Plan: lab workup, CT scan abd/pelvis Medical Decision Making Medical Decision Making MDM Narrative: 38-year-old female with past medical history as documented above presents for evaluation of vomiting. Per family she is acting appropriately other than the vomiting. The vomiting tends to be after tube feeds and eating. Given the delay and nonverbal status, plan for CT scan of the abdomen pelvis to better evaluate. She does wear white count 24.2 K. is elevated to 17.4 with a hematocrit 52.5, this is likely related to some degree of hypovolemia. Mucous membranes are moist however. The patient is a known diabetic, her glucose is elevated to 209 which is consistent with baseline. There is no evidence of DKA. There is no anion gap in her carbon dioxide is within normal limits. Patient's BUN is elevated to 32 with a normal creatinine. This is also likely indicative of decreased oral intake and vomiting. Differential Diagnosis Differential Diagnoses: The differential diagnosis associated with the presentation includes Small-bowel obstruction Enteritis Colitis Gastritis Ileus Constipation Lab Data MDM Lab Attestation statement: I reviewed the patient's lab results. See medical decision making above 10/08/23 18:24 10/08/23 18:24 Labs: Lab Results 10/08/23 Range/Units 18:24 WBC 24.2 H (4.8-10.8) X10*3/uL RBC 5.83 H D (4.20-5.50) X10*6/uL Hgb 17.4 H D (12.0-16.0) g/dl Hct 52.5 H D (37.0-47.0) % MCV 90.1 (80.0-98.0) fL MCH 29.8 (27.0-33.0) pg MCHC 33.1 (31.0-35.0) g/dl RDW 13.2 (11.0-16.0) % Plt Count 331 D (160-400) X10*3/uL MPV 9.9 (9.4-12.3) fL Immature Gran % (Auto) 0.5 H (0.0-0.4) % Neut % (Auto) 93.8 H (45-73) % Lymph % (Auto) 2.4 L (20-40) % [place] % (Auto) 3.1 (2-11) % Eos % (Auto) 0.0 (0-4) % Baso % (Auto) 0.2 (0-2) % Lymph # (Auto) 0.6 L (1.2-4.9) X10*3/uL [place] # (Auto) 0.8 (0.1-1.2) X10*3/uL Eos # (Auto) 0.0 (0.0-0.4) X10*3/uL Baso # (Auto) 0.1 (0.0-0.2) X10*3/uL Abs Immat Gran (auto) 0.12 H (0.00-0.03) X10*3/uL Absolute Neuts (auto) 22.7 H (2.0-8.3) x10*3/uL Absolute Nucleated RBC 0.000 (0.0-0.012) X10*3/uL Nucleated RBC % (auto) 0.0 (0.0-0.2) /100WBC Smear Tech's Comments VERIFIED Sodium 141 (135-145) mmol/L Potassium 3.7 (3.3-5.1) mmol/L Chloride 105 (96-108) mmol/L Carbon Dioxide 23 (22-29) mmol/L Anion Gap 17 (12-20) BUN 32 H (9-16) mg/dL Creatinine 0.68 (0.5-1.4) mg/dL Estim Creat Clear Calc 85.8 Estimated GFR > 60 Random Glucose 209 H (60-115) mg/dL Calcium 10.6 H D (8.4-10.2) mg/dL Magnesium 2.0 (1.6-2.6) mg/dL Total Bilirubin 0.5 (0.0-1.0) mg/dL Direct Bilirubin 0.1 (0.0-0.5) mg/dL AST 30 (5-31) U/L ALT 35 H (0-31) U/L Alkaline Phosphatase 156 H (39-117) U/L Total Protein 9.2 H (6.5-8.0) g/dL Albumin 4.5 (3.5-5.0) g/dL Lipase 57 (8-78) U/L Influenza Type A (PCR) NEGATIVE (Negative) Influenza Type B (PCR) NEGATIVE (Negative) RSV RNA Qual (PCR) NEGATIVE (Negative) SARS-CoV-2 RNA (RT-PCR) NEGATIVE (Negative) Independent Interpretation I performed an independent interpretation of an: CT Scan (Constipation) Radiology Impression Discussion of test interpretation with radiology: I have reviewed the radiologist's reading. Radiologist Impression: CT/CT abdomen pelvis wo IV con IMPRESSION: 1. Findings suggest constipation, without keith bowel obstruction. No appendicitis or diverticulitis is seen. 2. There is no urinary calculus or obstruction. 3. No mass, free fluid or lymphadenopathy is seen. 4. No acute osseous finding is noted. Fleischner guidelines were followed. Discharge Plan Discharge Clinical Impression: Constipation Patient Disposition: Home, Self-Care Instructions: Constipation (ED), Fleet Enema (ED) Additional Instructions: Alejandro's workup showed moderate to significant amount of constipation. This is like vomiting. Use Zofran as needed for nausea/vomiting Continue MiraLax twice a day for the next 2 weeks Use lactulose 20 g daily as needed for constipation Use Fleet enema once daily until a large bowel movement Prescriptions: New polyethylene glycol 3350 [Miralax] 17 gram/dose powder 17 g PO BID Qty: 238 0RF lactulose 20 gram/30 mL solution 20 g PO DAILY PRN (Reason: laxative effect) Qty: 1200 0RF mineral oil [Fleet Mineral Oil] Enema 118 ml MS DAILY PRN (Reason: constipation) Qty: 266 0RF Rx Instructions: discard any unused portion ondansetron 4 mg tablet,disintegrating 4 mg PO Q8H PRN (Reason: nausea and vomiting) Qty: 20 0RF No Action docusate sodium [Docu] 50 mg/5 mL liquid 5 ml PO BID clonidine HCl 0.1 mg tablet 2 tab PO BEDTIME trazodone 50 mg tablet 0.5 tab PO BEDTIME levothyroxine 25 mcg tablet 1 tab G-tube DAILY lamotrigine 25 mg tablet 4 tab PO BID baclofen 10 mg tablet 20 mg PO TID levetiracetam 100 mg/mL solution 7.5 ml G-tube Q12H Januvia 100 mg tablet 1 tab PO DAILY Antifungal (miconazole) 2 % powder 1 appl topical NEEDED nystatin 100,000 unit/gram powder 1 appl topical BID levocarnitine (with sugar) 100 mg/mL solution 2.5 ml PO BID polyethylene glycol 3350 17 gram Powder In Packet 17 g G-tube DAILY PRN (Reason: constipation) Qty: 30 0RF bisacodyl [Gentle Laxative (bisacodyl)] 10 mg Suppository 10 mg MS DAILY PRN (Reason: constipation) Qty: 5 0RF acetaminophen [Tylenol] 325 mg tablet 650 mg PO Q6H PRN (Reason: pain) Qty: 10 0RF Interventions: ED Discharge Assessment Last Done: 10/08/23 21:27 Discharge Date/Time: 10/08/23 21:28 Print Language: Georgian
[2023-10-08 18:29] LABS: Basophils Absolute Auto 0.1 X10*3/uL (0.0-0.2); Basophils Percent Auto 0.2 % (0-2); Hematocrit 52.5 % (37.0-47.0); Hemoglobin 17.4 g/dl (12.0-16.0); Imm Gran Abs Auto 0.12 X10*3/uL (0.00-0.03); Imm Gran Pct Auto 0.5 % (0.0-0.4); Lymphocytes Absolute Auto 0.6 X10*3/uL (1.2-4.9); Lymphocytes Percent Auto 2.4 % (20-40); MANUAL DIFF FLAG SCAN; Mean Corpuscular HGB Conc 33.1 g/dl (31.0-35.0); Mean Corpuscular Hemoglobin 29.8 pg (27.0-33.0); Mean Corpuscular Volume 90.1 fL (80.0-98.0); Mean Platelet Volume 9.9 fL (9.4-12.3); Monocytes Absolute Auto 0.8 X10*3/uL (0.1-1.2); Monocytes Percent Auto 3.1 % (2-11); Neutrophils Absolute Auto 22.7 x10*3/uL (2.0-8.3); Neutrophils Percent Auto 93.8 % (45-73); Platelet Count 331 X10*3/uL (160-400); Red Blood Count 5.83 X10*6/uL (4.20-5.50); Red Cell Distribution Width 13.2 % (11.0-16.0); SCAN SMEAR FLAG 1; White Blood Count 24.2 X10*3/uL (4.8-10.8)
[2023-10-08 18:48] LABS: Alanine Aminotransferase 35 U/L (0-31); Albumin Level 4.5 g/dL (3.5-5.0); Alkaline Phosphatase 156 U/L (39-117); Anion Gap 17 (12-20); Aspartate Amino Transferase 30 U/L (5-31); Bilirubin Direct 0.1 mg/dL (0.0-0.5); Bilirubin Total 0.5 mg/dL (0.0-1.0); Blood Urea Nitrogen 32 mg/dL (9-16); Calcium 10.6 mg/dL (8.4-10.2); Carbon Dioxide 23 mmol/L (22-29); Chloride 105 mmol/L (96-108); Creatinine Clr Calc Pharmacy 85.8; Estimated Glomerular Filt Rate > 60; Glucose Random 209 mg/dL (60-115); Lipase 57 U/L (8-78); Potassium 3.7 mmol/L (3.3-5.1); Sodium 141 mmol/L (135-145); Total Protein 9.2 g/dL (6.5-8.0)
[2023-10-08 18:49] LABS: SLIDE REVIEW VERIFIED
[2023-10-08 19:09] LABS: Influenza A PCR NEGATIVE (Negative); Influenza B PCR NEGATIVE (Negative); Resp Syncy Virus RNA Qual PCR NEGATIVE (Negative); SARS COV2 PCR INHOUSE NEGATIVE (Negative)
[2023-10-08 19:45] VITALS: BP 112/78; PULSE 88; RESP 18; TEMP 36.4; O2SAT 96
[2023-10-08 21:27] VITALS: BP 112/78; PULSE 88; RESP 18; TEMP 36.4; O2SAT 96
== END 2023-10-08 21:28 | disposition home or self-care (01) ==
PROVIDERS: Physician Assistant; Emergency Provider Student in an Organized Health Care Education/Training Program; PCP Family Medicine
DX: K59.00 Constipation, unspecified (principal); R05.9 Cough, unspecified; R11.2 Nausea with vomiting, unspecified; Z03.818 Encounter for observation for suspected exposure to other biological agents ruled out; F84.2 Rett's syndrome
CPT/HCPCS: 0241U; 71045; 74176; 80048; 80076; 83690; 83735; 85025; 99284

== ENCOUNTER 2024-03-10 11:58 | Emergency (ER) | payer MEDICARE, MEDICAID, SELFPAY ==
--- NOTE | ~2024-03-10 | XR_ITS ---
EXAMINATION: XR CHEST CLINICAL INFORMATION: Cough COMPARISON: Chest radiograph dated 10/08/2023 TECHNIQUE: Frontal view of the chest was obtained. FINDINGS: The patient is rotated. Low lung volumes. Severe elevation of the right hemidiaphragm is stable. Right basilar atelectasis. No focal consolidation, pulmonary edema, pleural effusion, or pneumothorax. Normal mediastinal silhouette. No acute osseous abnormality. XR/XR chest 1V IMPRESSION: Low lung volumes with right basilar atelectasis. No focal consolidation. Electronically signed by: Collette Avendano MD 03/10/2024 02:28 PM [facility]
[2024-03-10 12:08] VITALS: BP 114/94; PULSE 95; RESP 18; TEMP 36.2; O2SAT 94; BMI 25.6
--- NOTE | 2024-03-10 12:09 | ED_ITS ---
HPI - URI/Sore Throat General Chief Complaint: Upper Respiratory Symptoms Stated Complaint: flu symptons Time Seen by Provider: 03/10/24 14:37 Source: family Mode of arrival: ambulatory Limitations: no limitations History of Present Illness ED Provider: DR. Wade HPI Narrative: Patient is a 39-year-old female with past medical history of Rett syndrome presenting to emergency department for evaluation of a congested productive cough over the past week. 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 No fever, no chills, no change in baseline mental status, baseline for the patient is nonverbal has been cared by her mother and stepfather. Related Data Home Medications ?Medication ?Instructions ?Recorded ?Confirmed baclofen 10 mg tablet 20 mg PO TID 10/23/21 11/13/21 clonidine HCl 0.1 mg tablet 2 tab PO BEDTIME 10/23/21 11/13/21 docusate sodium 50 mg/5 mL oral 5 ml PO BID 10/23/21 11/13/21 liquid (Docu) lamotrigine 25 mg tablet 4 tab PO BID 10/23/21 11/13/21 levetiracetam 100 mg/mL oral 7.5 ml G-tube Q12H 10/23/21 11/13/21 solution levocarnitine (with sugar) 100 2.5 ml PO BID 10/23/21 11/13/21 mg/mL oral solution levothyroxine 25 mcg tablet 1 tab G-tube DAILY 10/23/21 11/13/21 miconazole nitrate 2 % topical 1 appl topical NEEDED itch 10/23/21 11/13/21 powder (Antifungal (miconazole)) nystatin 100,000 unit/gram topical 1 appl topical BID 10/23/21 11/13/21 powder sitagliptin phosphate 100 mg 1 tab PO DAILY 10/23/21 11/13/21 tablet (Januvia) trazodone 50 mg tablet 0.5 tab PO BEDTIME insomnia 10/23/21 11/13/21 Previous Rx's ?Medication ?Instructions ?Recorded acetaminophen 325 mg tablet 650 mg (2 x 325 mg) PO Q6H PRN 11/01/21 (Tylenol) pain #10 tabs bisacodyl 10 mg rectal suppository 10 mg VA DAILY PRN constipation #5 11/01/21 (Gentle Laxative (bisacodyl)) ea polyethylene glycol 3350 17 gram 17 g G-tube DAILY PRN constipation 11/01/21 oral powder packet #30 ea lactulose 20 gram/30 mL oral 20 g (30 mL) PO DAILY PRN laxative 10/08/23 solution effect #1,200 mL mineral oil (Fleet Mineral Oil 118 ml VA DAILY PRN constipation 10/08/23 enema) #266 mL ondansetron 4 mg disintegrating 4 mg PO Q8H PRN nausea and 10/08/23 tablet vomiting #20 tabs polyethylene glycol 3350 17 17 g PO BID #238 grams 10/08/23 gram/dose oral powder (Miralax) azithromycin 250 mg tablet See Rx Instructions PO .COMPLEX #6 03/10/24 (Zithromax Z-Magen) tabs Allergies Allergy/AdvReac Type Severity Reaction Status Date / Time No Known Allergies Allergy Verified 03/10/24 12:12 Review of Systems 2 Review of Systems: all other systems are reviewed and are negative Constitutional: Reports as per HPI and Reports no additional constitutional complaints Eyes: Reports as per HPI and Reports no additional eye complaints Reports system reviewed and no additional complaints, except as documented Cardiovascular: Reports as per HPI and Reports no additional cardiovascular complaints Respiratory: Reports as per HPI and Reports no additional respiratory complaints Gastrointestinal: Reports as per HPI and Reports no additional gastrointestinal complaints Genitourinary: Reports no additional female genitourinary complaints Musculoskeletal: Reports no additional musculoskeletal complaints Skin/Breast: Reports system reviewed and no additional complaints, except as docu Psychiatric: Reports no additional psychiatric complaints Endocrine: Reports no additional endocrine complaints Hematologic/Lymphatic: Reports no additional hematologic/lymphatic complaints Allergic/Immunologic: Reports no additional allergic/immunologic complaints Reports system reviewed and no additional complaints, except as documented and Reports Abnormal speech present [facility] Past Medical History Medical History Encounter for gastrojejunal tube placement Acute pancreatitis Rett syndrome Surgical History S/P laparoscopic cholecystectomy (10/29/21) Family History Family History Other No family history of coronary artery disease Social History Social History Household Members: Family Housing: Apartment Alcohol intake: never Patient Tobacco Use Status: Never used Tobacco Advance Directives: No Advance Directives Information Provided: No service: No Current occupational status: disabled Physical Exam 2 Vital Signs: Vital Signs: Last Vital Signs Temp 97.2 F 03/10/24 12:08 Pulse 95 03/10/24 12:08 Resp 18 03/10/24 12:08 BP 114/94 H 03/10/24 12:08 Pulse Ox 94 03/10/24 12:08 O2 Del Method Room Air 03/10/24 12:08 BMI result Body Mass Index 25.6 Vital signs have been reviewed and appear to be correct. Blood pressure elevated. Heart rate normal. Respiratory rate normal. Temperature normal. Oxygen saturation normal. Appearance: nonverbal at her baseline Head: Normal external exam. Normocephalic. Atraumatic. No Scott signs noted. No raccoon eyes noted Eyes: PERRLA. EOMI. Conjunctiva and sclera normal. Eyelids normal. ENT: TM's Normal. Pharynx normal. Uvula midline. Moist mucous membranes. No trismus noted. No drooling noted. No muffled voice noted. Neck: Normal inspection. Neck supple. FROM. No adenopathy. Thyroid Normal. No meningeal signs. No neck mass noted. CVS: Normal heart rate and rhythm. Heart sound normal. No murmurs noted. Pulses normal throughout. Respiratory: No respiratory distress. Painless inspiration. Breath sounds normal. No wheezes/rales/rhonchi noted. Chest nontender. No accessory muscle usage noted or decreased air movement noted. Abdomen: Soft and nontender. Bowel sounds normal in all 4 quadrants. No distention noted. No organomegaly noted. No visible injury noted. Back: No CVA tenderness. Full range of motion noted. Skin: Skin warm and dry. Normal skin color. Normal skin turgor. No rashes/lesions/lacerations noted. Extremities: No lower extremity edema. Extremities exhibit normal range of motion. Course Course Course Narrative: This is an RME performed by Johanna Huston CNP: Additional HPI, ROS, PE not included below will be deferred to primary provider. Patient is a 39-year-old female with past medical history of Rett syndrome presenting to emergency department for evaluation of a congested productive cough over the past week. 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 Her primary source of feeding is through a G-tube but she does occasionally take some things by mouth, no reported history of recent choking episodes. Plan: CXR, viral serologies, basic labs Reevaluation(s) Reevaluation #1: upper respiratory symptoms with productive cough. Chest x-ray do not reveal infiltrate. Given the patient risk factor and symptoms will start the patient on prophylactic Z-Magen. Time: 15:07 Medical Decision Making Differential Diagnosis Differential Diagnoses: The differential diagnosis associated with the presentation includes ( Pneumonia, pneumothorax, pleural effusion, viral upper respiratory infection, severe anemia, electrolyte derangement.) Admission/Observation Consideration of admission/observation: Escalation of care including admission/observation considered Lab Data MDM Lab Attestation statement: I reviewed the patient's lab results. 03/10/24 12:26 03/10/24 12:26 Labs: Lab Results 03/10/24 Range/Units 12:26 WBC 6.7 (4.8-10.8) X10*3/uL RBC 4.92 (4.20-5.50) X10*6/uL Hgb 14.5 (12.0-16.0) g/dl Hct 43.4 (37.0-47.0) % MCV 88.2 (80.0-98.0) fL MCH 29.5 (27.0-33.0) pg MCHC 33.4 (31.0-35.0) g/dl RDW 13.0 (11.0-16.0) % Plt Count 282 (160-400) X10*3/uL MPV 9.6 (9.4-12.3) fL Immature Gran % (Auto) 0.1 (0.0-0.4) % Neut % (Auto) 68.7 (45-73) % Lymph % (Auto) 22.8 (20-40) % [place] % (Auto) 6.4 (2-11) % Eos % (Auto) 1.9 (0-4) % Baso % (Auto) 0.1 (0-2) % Lymph # (Auto) 1.5 (1.2-4.9) X10*3/uL [place] # (Auto) 0.4 (0.1-1.2) X10*3/uL Eos # (Auto) 0.1 (0.0-0.4) X10*3/uL Baso # (Auto) 0.0 (0.0-0.2) X10*3/uL Abs Immat Gran (auto) 0.01 (0.00-0.03) X10*3/uL Absolute Neuts (auto) 4.6 (2.0-8.3) x10*3/uL Absolute Nucleated RBC 0.000 (0.0-0.012) X10*3/uL Nucleated RBC % (auto) 0.0 (0.0-0.2) /100WBC Sodium 143 (135-145) mmol/L Potassium 4.1 (3.3-5.1) mmol/L Chloride 102 (96-108) mmol/L Carbon Dioxide 29 (22-29) mmol/L Anion Gap 16 (12-20) BUN 11 (9-16) mg/dL Creatinine 0.60 (0.5-1.4) mg/dL Estim Creat Clear Calc 78.5 Estimated GFR > 60 Random Glucose 181 H (60-115) mg/dL Calcium 10.3 H (8.4-10.2) mg/dL Total Bilirubin 0.3 (0.0-1.0) mg/dL AST 26 (5-31) U/L ALT 36 H (0-31) U/L Alkaline Phosphatase 161 H (39-117) U/L Total Protein 8.1 H (6.5-8.0) g/dL Albumin 3.9 (3.5-5.0) g/dL Influenza Type A (PCR) NEGATIVE (Negative) Influenza Type B (PCR) NEGATIVE (Negative) RSV RNA Qual (PCR) NEGATIVE (Negative) SARS-CoV-2 RNA (RT-PCR) NEGATIVE (Negative) Independent Interpretation I performed an independent interpretation of an: Plain X-Ray ( Chest: No acute intra thoracic pathology.Low lung volumes with right basilar atelectasis. No focal consolidation.) Radiology Impression Discussion of test interpretation with radiology: I have reviewed the radiologist's reading. Discharge Plan Discharge Clinical Impression: Rett syndrome, Bronchopneumonia Patient Disposition: Home, Self-Care Instructions: Acute Bronchitis (ED) Prescriptions: New azithromycin [Zithromax Z-Magen] 250 mg tablet See Rx Instructions .ROUTE .COMPLEX Qty: 6 0RF Rx Instructions: For 250 mg dose pack: take 500 mg today (day 1), then 250 mg for 4 days (days 2-5) No Action docusate sodium [Docu] 50 mg/5 mL liquid 5 ml PO BID clonidine HCl 0.1 mg tablet 2 tab PO BEDTIME trazodone 50 mg tablet 0.5 tab PO BEDTIME levothyroxine 25 mcg tablet 1 tab G-tube DAILY lamotrigine 25 mg tablet 4 tab PO BID baclofen 10 mg tablet 20 mg PO TID levetiracetam 100 mg/mL solution 7.5 ml G-tube Q12H Januvia 100 mg tablet 1 tab PO DAILY Antifungal (miconazole) 2 % powder 1 appl topical NEEDED nystatin 100,000 unit/gram powder 1 appl topical BID levocarnitine (with sugar) 100 mg/mL solution 2.5 ml PO BID polyethylene glycol 3350 17 gram Powder In Packet 17 g G-tube DAILY PRN (Reason: constipation) Qty: 30 0RF bisacodyl [Gentle Laxative (bisacodyl)] 10 mg Suppository 10 mg VA DAILY PRN (Reason: constipation) Qty: 5 0RF acetaminophen [Tylenol] 325 mg tablet 650 mg PO Q6H PRN (Reason: pain) Qty: 10 0RF polyethylene glycol 3350 [Miralax] 17 gram/dose powder 17 g PO BID Qty: 238 0RF lactulose 20 gram/30 mL solution 20 g PO DAILY PRN (Reason: laxative effect) Qty: 1200 0RF mineral oil [Fleet Mineral Oil] Enema 118 ml VA DAILY PRN (Reason: constipation) Qty: 266 0RF Rx Instructions: discard any unused portion ondansetron 4 mg tablet,disintegrating 4 mg PO Q8H PRN (Reason: nausea and vomiting) Qty: 20 0RF Referrals: Sima Arvizu MD [Primary Care Provider] - Print Language: Palestinian
[2024-03-10 12:31] LABS: MANUAL DIFF FLAG NO
[2024-03-10 12:33] LABS: Hemoglobin 14.5 g/dl (12.0-16.0); PLT CLUMP 1; SCAN SMEAR FLAG 1
[2024-03-10 12:35] LABS: Basophils Percent Auto 0.1 % (0-2); Eosinophils Absolute Auto 0.1 X10*3/uL (0.0-0.4); Eosinophils Percent Auto 1.9 % (0-4); Hematocrit 43.4 % (37.0-47.0); Imm Gran Abs Auto 0.01 X10*3/uL (0.00-0.03); Imm Gran Pct Auto 0.1 % (0.0-0.4); Lymphocytes Absolute Auto 1.5 X10*3/uL (1.2-4.9); Lymphocytes Percent Auto 22.8 % (20-40); Mean Corpuscular HGB Conc 33.4 g/dl (31.0-35.0); Mean Corpuscular Hemoglobin 29.5 pg (27.0-33.0); Mean Corpuscular Volume 88.2 fL (80.0-98.0); Mean Platelet Volume 9.6 fL (9.4-12.3); Monocytes Absolute Auto 0.4 X10*3/uL (0.1-1.2); Monocytes Percent Auto 6.4 % (2-11); Neutrophils Absolute Auto 4.6 x10*3/uL (2.0-8.3); Neutrophils Percent Auto 68.7 % (45-73); Red Blood Count 4.92 X10*6/uL (4.20-5.50)
[2024-03-10 12:37] LABS: Platelet Count 282 X10*3/uL (160-400); White Blood Count 6.7 X10*3/uL (4.8-10.8)
[2024-03-10 12:51] LABS: Alanine Aminotransferase 36 U/L (0-31); Albumin Level 3.9 g/dL (3.5-5.0); Alkaline Phosphatase 161 U/L (39-117); Anion Gap 16 (12-20); Aspartate Amino Transferase 26 U/L (5-31); Bilirubin Total 0.3 mg/dL (0.0-1.0); Blood Urea Nitrogen 11 mg/dL (9-16); Calcium 10.3 mg/dL (8.4-10.2); Carbon Dioxide 29 mmol/L (22-29); Chloride 102 mmol/L (96-108); Creatinine Clr Calc Pharmacy 78.5; Estimated Glomerular Filt Rate > 60; Glucose Random 181 mg/dL (60-115); Potassium 4.1 mmol/L (3.3-5.1); Sodium 143 mmol/L (135-145); Total Protein 8.1 g/dL (6.5-8.0)
[2024-03-10 14:15] LABS: Influenza A PCR NEGATIVE (Negative); Influenza B PCR NEGATIVE (Negative); Resp Syncy Virus RNA Qual PCR NEGATIVE (Negative); SARS COV2 PCR INHOUSE NEGATIVE (Negative)
[2024-03-10 15:27] VITALS: BP 114/94; PULSE 95; RESP 18; TEMP 36.6; O2SAT 96
[2024-03-10 15:52] VITALS: BP 111/71; PULSE 95; RESP 18; TEMP 37.1; O2SAT 92
[2024-03-10] MEDS: guaiFEN/Codeine SF 200/20/10ML 10 ML LIQUID PO (15:59)
[2024-03-10 16:01] VITALS: BP 111/71; PULSE 95; RESP 18; TEMP 37.1; O2SAT 92
== END 2024-03-10 16:03 | disposition home or self-care (01) ==
PROVIDERS: Nurse Practitioner Family; Emergency Provider Emergency Medicine; PCP Family Medicine
DX: F84.2 Rett's syndrome (principal); J18.0 Bronchopneumonia, unspecified organism; Z03.818 Encounter for observation for suspected exposure to other biological agents ruled out; R05.9 Cough, unspecified
CPT/HCPCS: 0241U; 36415; 71045; 80053; 85025; 99283